=== PATIENT | female | born 1945 | race Caucasian/White ===

== ENCOUNTER 2022-08-24 14:39 | Outpatient (REF) | payer MEDICARE, SELFPAY | END 2022-08-24 14:40 | disposition home or self-care (01) | LOC: HO.LAB 14:39 | PROVIDERS: Visit Provider Family Medicine | DX: Z13.89 Encounter for screening for other disorder (principal) ==

== ENCOUNTER → 2022-08-31 13:30 | Outpatient (REF) | payer MEDICARE, SELFPAY ==
--- NOTE | 2022-08-31 13:34 | CA_ITS ---
Transthoracic Echocardiogram Patient (Last, First, Middle): Regine Dempsey, Gender: Female Date of : 1945 Age: 77 Procedure Date: 08/31/2022 Procedure Type: Transthoracic Echocardiogram Location: OP Height: 149.86 cm Weight: 48.54 kg BSA: 1.41 m2 Heart Rate: bpm BP: 140 / 82 mmHg Leather Crafter: SB Referring MD: Barry Young MD Symptoms: R01.1 - Cardiac murmur, unspecified Study Quality: Adequate ECG Rhythm: Sinus Conclusions: - The left ventricular systolic function is hyperdynamic. The visually estimated ejection fraction is >70%. - No obvious valvular pathology seen on this study. Findings Left Ventricle Normal left ventricular cavity size. There is normal left ventricular wall thickness. The left ventricular systolic function is hyperdynamic. The visually estimated ejection fraction is >70%. There is no evidence of regional wall motion abnormalities. E/E prime ratio is between 8 and 15 consistent with indeterminate filling pressures. Evidence suggests grade I (mild) diastolic dysfunction. Right Ventricle Normal right ventricular cavity size. There is low normal right ventricular systolic function. Atria Both atria are normal in size. Aortic Valve There is a normal trileaflet aortic valve. There is no aortic valve stenosis. There is no aortic valve regurgitation. Mitral Valve The mitral valve appears normal. There is no mitral valve regurgitation. There is no mitral valve stenosis. Pulmonic Valve The pulmonic valve is likely normal. Tricuspid Valve Normal tricuspid valve structure. There is trace tricuspid valve regurgitation. There is no evidence of pulmonary hypertension. Great Vessels The asc aorta is normal in size. Venous The inferior vena cava is normal in size and collapses greater than 50% with inspiration. Pericardium/Pleural There is no evidence of pericardial effusion. Prior Study Comparison No prior study available for comparison. Recommendations, Care & Conclusions No obvious valvular pathology seen on this study. Measurements 2D Linear Measurements IVSd: 0.99 0.6-0.9/0.6-1.0 cm LVIDd: 3.28 3.9-5.3/4.2-5.9 cm LVIDd Index: 2.33 2.4-3.2/2.2-3.1 cm/m2 LVIDs: 2.08 2.0-3.6 cm LVPWd: 0.94 0.7-1.1 cm Ao Root: 2.60 2.1-3.5 cm LA Diam: 3.10 2.7-3.8/3.0-4.0 cm LAIDs Index: 2.20 1.5-2.3 cm/m2 LV Mass: 110.21 67-162/88-224 g LV Mass Index: 78.16 43-95/49-115 g/m2 LVOT Diam: 1.70 3.0+(-)1.3 cm 2D Systolic Function EF 4C: 78.20 >55% EF 2C: 74.40 >55% EF BiP: 77.60 >55% Mitral Valve MV Pk E: 0.62 MV PK A: 1.09 MV Decel Time: 134.00 E/A: 0.60 E'Lateral: 6.09 E'Medial: 3.48 E/E' Med: 17.70 E/E' Lat: 10.10 PHT: 39.00 MVA PHT: 5.64 Decel [place]: 4.60 Aortic Valve AoV Pk Zachary: 1.42 AoV Pk Grad: 8.00 LVOT LVOT Pk Zachary: 1.23 LVOT Mn Zachary: 0.86 LVOT VTI: 0.24 LVOT Pk Grad: 6.00 LVOT Mn Grad: 3.00 LVOT Diam: 1.70 LVOT Area: 2.27 Diastolic Function MV Pk E: 0.62 MV Pk A: 1.09 E/A: 0.60 E'Medial: 3.48 E/E' Med: 17.70 E' Laterial: 6.09 E/E' Lat: 10.10 Right Ventricle TAPSE (mm): 17.00 TVS' Zachary: 9.00 Great Vessels Aorta Ao Root-2D: 2.60 2.0-3.7 cm Ao Asc: 2.70 2.1-3.4 cm Pulmonary Valve PV Pk Zachary: 1.46 Peak PV Grad: 9.00 Updated in Other Vendor System with Status of Final Dave Rolon MD electronically signed on 09/02/2022 12:52:43 PM with status of Final
== END ==
LOC: HO.CARD 13:30
PROVIDERS: Visit Provider Family Medicine
DX: R01.1 Cardiac murmur, unspecified (principal)
CPT/HCPCS: 93306

== ENCOUNTER 2022-09-28 11:06 | Outpatient (REF) | payer MEDICARE, SELFPAY ==
[2022-09-28 14:02] LABS: Appearance Urine Cloudy; Color Urine Yellow; Glucose Urine UA 500 mg/dL (Negative); Leukocyte Esterase Urine Small (1+) (Negative); Nitrite Urine Positive (Negative); Specific Gravity - Urine 1.015 (1.005-1.025); UMIC TRIGGER UA YES; Urine Blood Negative (Negative); Urine Ketones Negative (Negative); Urine Protein Negative (Neg-Trace)
[2022-09-28 14:10] LABS: Bacteria Urine 4+ (None Seen); Hyaline Casts Urine 0-2 /LPF (0-2); RBC Urine 0-2 /HPF (0-2); Squamous Epithelial Cell Urine 0-2 /HPF (0-2)
== END 2022-09-28 11:07 | disposition home or self-care (01) ==
LOC: HO.LAB 11:06
PROVIDERS: Visit Provider Family Medicine
DX: R35.0 Frequency of micturition (principal)
CPT/HCPCS: 81001; 81003; 87086; 87088; 87186

== ENCOUNTER 2022-09-28 11:15 | Outpatient (REF) | payer MEDICARE, SELFPAY ==
[2022-09-28 14:18] LABS: Estimated Average Glucose 163 mg/dL; Hemoglobin A1c % 7.3 %
[2022-09-28 15:01] LABS: Alanine Aminotransferase 13 U/L (0-31); Albumin Level 4.4 g/dL (3.5-5.0); Alkaline Phosphatase 103 U/L (39-117); Anion Gap 14 (12-20); Aspartate Amino Transferase 16 U/L (5-31); Bilirubin Total 0.5 mg/dL (0.0-1.0); Blood Urea Nitrogen 14 mg/dL (9-16); Calcium 9.7 mg/dL (8.4-10.2); Carbon Dioxide 27 mmol/L (22-29); Chloride 104 mmol/L (96-108); Estimated Glomerular Filt Rate > 60; Glucose Random 119 mg/dL (60-115); Potassium 3.9 mmol/L (3.3-5.1); Sodium 141 mmol/L (135-145); Total Protein 7.4 g/dL (6.5-8.0)
== END 2022-09-28 11:16 | disposition home or self-care (01) ==
LOC: HO.WFDLDS 11:15
PROVIDERS: Visit Provider Family Medicine
DX: E11.9 Type 2 diabetes mellitus without complications (principal)
CPT/HCPCS: 36415; 80053; 83036

== ENCOUNTER → 2022-10-10 10:44 | Outpatient (BNVA) | payer MEDICARE, SELFPAY | PROVIDERS: PCP Family Medicine; Visit Provider Surgery Vascular Surgery | DX: I73.9 Peripheral vascular disease, unspecified (principal) | CPT/HCPCS: 99212 ==

== ENCOUNTER → 2022-12-12 10:26 | Outpatient (BNVA) | payer MEDICARE, SELFPAY | PROVIDERS: PCP Family Medicine; Visit Provider Physician Assistant | DX: Z12.11 Encounter for screening for malignant neoplasm of colon (principal); Z98.890 Other specified postprocedural states | CPT/HCPCS: 99202 ==

== ENCOUNTER 2023-01-04 11:55 | Outpatient (REF) | payer MEDICARE, SELFPAY ==
[2023-01-04 14:39] LABS: Appearance Urine Clear; Color Urine Yellow; Glucose Urine UA Negative (Negative); Leukocyte Esterase Urine Trace (Negative); Nitrite Urine Negative (Negative); PH 6.5 (5.0-9.0); Specific Gravity - Urine <= 1.005 (1.005-1.025); UMIC TRIGGER UA YES; Urine Blood Negative (Negative); Urine Ketones Negative (Negative); Urine Protein Negative (Neg-Trace)
[2023-01-04 14:41] LABS: Bacteria Urine 4+ (None Seen); Hyaline Casts Urine 0-2 /LPF (0-2); RBC Urine 0-2 /HPF (0-2); Squamous Epithelial Cell Urine 0-2 /HPF (0-2); WBC Urine 0-5 /HPF (0-5)
== END 2023-01-04 11:56 | disposition home or self-care (01) ==
LOC: HO.WFDLDS 11:55
PROVIDERS: Visit Provider Family Medicine
DX: R30.0 Dysuria (principal)
CPT/HCPCS: 81001; 87086; 87088; 87186

== ENCOUNTER 2023-03-15 10:23 | Outpatient (AMB) | payer MEDICARE, SELFPAY ==
--- NOTE | 2023-03-15 10:36 | A.OFFPC_ITS ---
Vital Signs 03/15/23 10:42 Height 4 ft 5 in Weight 110 lb BMI 27.5 BP 120/70 Blood Pressure Location Lt brachial Position Sitting Pulse 100 Pulse Source Pulse Oximeter Pulse Oximetry (%) 98 Oxygen Delivery Method Room Air Intake Visit Reasons: Diabetes, hypertension Intake Note: Patient is here to follow up on diabetes, and hypertension. Allergies Seasonal Allergies Allergy (Mild, Verified 03/15/23 10:43) allergies broccoli Allergy (Mild, Uncoded 03/15/23 10:43) congestion cats Allergy (Mild, Uncoded 03/15/23 10:43) Swelling dogs Allergy (Mild, Uncoded 03/15/23 10:43) Swelling chemicals Adverse Reaction (Uncoded 03/15/23 10:43) Unknown Tobacco use date assessed: 03/15/23 Fall risk assessment: No Falls in past year Last assessed Fall Risk: 03/15/23 Dental Screening Dental Screen Date: 03/15/23 Did you have a dental visit in the last 12 months?: Yes Did you have a dental problem in the last 6 months where you did not have access to dental care?: No Was dental information given to patient?: Patient has dentist HPI Diabetes, hypertension HPI Details 77 y/o female presents to f/u diabetes/hypertension. Last A1c 09/28/22 7.3%. She is on metformin 500mg b.i.d. and glipizide 5mg daily. A1c today 03/15/23 is 7.8%. She denies any problems with her medication regimen though she notes she only takes metformin at night as it had been making her drowsy. Blood pressure today 120/70. She is on lisinopril 30mg daily. Pt has complaint of a dermatitis today. [facility] Surgical History History of appendectomy History of cataract surgery Family History Sister Kidney failure Social History Housing: Apartment Patient Tobacco Use Status: Never used Tobacco e-Cigarette/Vaping Use: Never Used service: No Current occupational status: retired Current occupational exposures/hazards: No Cognitive needs: No Hearing needs: No Vision needs: No Questionnaire Thrive Questionnaire Date Thrive assessed: 06/21/22 JULIETH-7 AMB Questionnaire JULIETH-7 Date JULIETH - 7 assessed: 06/21/22 Source: Developed by Drs. Kris Arellano, Ana Yusuf, Maciej Haddad and colleagues, with an educational annette from [employer]. Physical exam (Primary Care) Vital Signs: Last Vital Signs Pulse 100 03/15/23 10:42 BP 120/70 03/15/23 10:42 Pulse Ox 98 03/15/23 10:42 Oxygen Delivery Method Room Air 03/15/23 10:42 BMI result Body Mass Index 27.5 Tobacco/Smoking Status: Tobacco use Status Tobacco use date assessed 03/15/23 03/15/23 10:46 Patient Tobacco Use Status Never used Tobacco 03/15/23 10:37 e-Cigarette/Vaping Use Never Used 03/15/23 10:37 Thrive Assessment: Date of Thrive Assessment Date Thrive assessed 06/21/22 03/15/23 10:37 Assessment and Plan Assessment & Plan (1) Diabetes: Code(s): E11.9 - Type 2 diabetes mellitus without complications Plan: Poorly controlled diabetes. She says that metformin in the daytime causes drowsiness so she only takes this at night. She is taking glipizide ER 5 mg daily around 3pm because she says it causes low blood sugars in her mornings when she is doing lots of walking. Will trial to new via in the morning. Test blood sugars frequently to ensure she is not going low Eat regular meals Close follow-up in 1 month (2) Hypertension: Code(s): I10 - Essential (primary) hypertension Plan: Blood pressure is controlled. Goal is less than 140/90. Continue current medication regimen (3) Dermatitis: Code(s): L30.9 - Dermatitis, unspecified Plan: 1 cm patch of dermatitis under her chin She can trial hydrocortisone cream or ointment for this. She will let me know if not improving Orders: Orders AMB Hemoglobin A1c Today Z13.9 - Encounter for screening, unspecified Medications: New sitagliptin phosphate (Januvia) 25 mg PO DAILY 30 tabs 2RF 30 days blood sugar diagnostic (OneTouch Verio test strips) 2 times a day As directed, 90 days 200 ea 4RF DX: E11.9, test blood sugar twice a day, 90 day E11.69 - Type 2 diabetes mellitus with other specified complication, E66.9 - Obesity, unspecified lancets ([employer] Safety Lancet) 2 times a day As directed, 90 days 200 ea 3RF E11.9 - Type 2 diabetes mellitus without complications Changed From glipizide ER 5 mg PO DAILY 30 days 30 tabs 1RF To glipizide ER 5 mg PO DAILY 90 tabs 2RF 90 days Coding Level of Care Code Est Pt Level 4 (93957) Diagnoses Diabetes E11.9 Hypertension I10 Dermatitis L30.9
[2023-03-15 10:42] VITALS: BP 120/70; PULSE 100; O2SAT 98; BMI 27.5
== END 2023-03-15 11:22 | disposition home or self-care (01) ==
PROVIDERS: Visit Provider Family Medicine
DX: E11.620 Type 2 diabetes mellitus with diabetic dermatitis (principal); I10 Essential (primary) hypertension; L30.9 Dermatitis, unspecified
CPT/HCPCS: 83036; 99214

== ENCOUNTER 2023-03-27 09:55 | Outpatient (REF) | payer MEDICARE, SELFPAY ==
--- NOTE | ~2023-03-27 | MM_ITS ---
EXAMINATION: MM SCREENING DIGITAL BREAST TOMOSYNTHESIS, BILATERAL CLINICAL INFORMATION: Screening. Asymptomatic. COMPARISON: Mammography: This study is compared with prior exams dating back to 2020. TECHNIQUE: Digital breast tomosynthesis is performed in both the craniocaudal and mediolateral oblique views along with computer-aided detection (CAD). Synthesized 2D images are generated from the tomosynthesis. FINDINGS: The breasts are heterogeneously dense, which may obscure small masses (ACR BI-RADS breast composition Category c). There are no significant masses, abnormal calcifications, or other abnormalities. MM/MM tomosynthesis screening BI IMPRESSION: No mammographic evidence of malignancy. ASSESSMENT: BI-RADS BI-RADS 1 - Negative RECOMMENDATION: Routine annual mammography screening. 1 year F/U This examination should not preclude the clinical evaluation of a suspicious palpable abnormality. This patient's information was entered into a reminder system with a target due date for their next mammogram.
== END 2023-03-27 09:56 | disposition home or self-care (01) ==
LOC: HO.MAMMO 09:55
PROVIDERS: PCP Family Medicine; Visit Provider Family Medicine
DX: Z12.31 Encounter for screening mammogram for malignant neoplasm of breast (principal)
CPT/HCPCS: 77063; 77067

== ENCOUNTER → 2023-03-27 10:15 | Outpatient (BNV) | payer MEDICARE, SELFPAY | PROVIDERS: PCP Family Medicine; Visit Provider Radiology Diagnostic Radiology | DX: Z12.31 Encounter for screening mammogram for malignant neoplasm of breast (principal) | CPT/HCPCS: 77063; 77067 ==

== ENCOUNTER 2023-04-21 10:30 | Outpatient (AMB) | payer MEDICARE, SELFPAY ==
--- NOTE | 2023-04-21 11:01 | A.OFFPC_ITS ---
Vital Signs 04/21/23 11:03 Height 4 ft 11 in Weight 109 lb BMI 22.0 BP 132/82 Blood Pressure Location Lt brachial Position Sitting Pulse 96 Pulse Source Pulse Oximeter Pulse Oximetry (%) 100 Oxygen Delivery Method Room Air Intake Visit Reasons: f/u diabetes Intake Note: Patient is here for follow up on her diabetes. Allergies Seasonal Allergies Allergy (Mild, Verified 04/21/23 11:05) allergies broccoli Allergy (Mild, Uncoded 04/21/23 11:05) congestion cats Allergy (Mild, Uncoded 04/21/23 11:05) Swelling dogs Allergy (Mild, Uncoded 04/21/23 11:05) Swelling chemicals Adverse Reaction (Uncoded 04/21/23 11:05) Unknown Tobacco use date assessed: 03/15/23 Fall risk assessment: No Falls in past year Last assessed Fall Risk: 04/21/23 Dental Screening Dental Screen Date: 04/21/23 Did you have a dental visit in the last 12 months?: Yes Did you have a dental problem in the last 6 months where you did not have access to dental care?: No Was dental information given to patient?: Patient has dentist HPI f/u diabetes HPI Details 77 y/o female presents to f/u diabetes. She has had issues with timing of her meds. Had added Januvia for her mornings but it seems to have been discontinued. She reports this has been too expensive for her. Last A1c 03/15/23 listed?in?chart?as?5.8% She is only on metformin 500mg b.i.d. and glipizide 5mg daily. She had brought her blood sugar logs. She has complaints of sinus pressure/headaches today. Blood sugars at home have been in the low 100s. ?On?metformin?and?glipizide. [facility] Surgical History History of appendectomy History of cataract surgery Family History Sister Kidney failure Social History Housing: Apartment Patient Tobacco Use Status: Never used Tobacco e-Cigarette/Vaping Use: Never Used service: No Current occupational status: retired Current occupational exposures/hazards: No Cognitive needs: No Hearing needs: No Vision needs: No Questionnaire Thrive Questionnaire Date Thrive assessed: 06/21/22 JULIETH-7 AMB Questionnaire JULIETH-7 Date JULIETH - 7 assessed: 06/21/22 Source: Developed by Drs. Kris Arellano, Ana Yusuf, Maciej Haddad and colleagues, with an educational annette from [employer]. Review of Systems Const Reports headache(s) ENT Reports headache(s) and Reports sinus pressure Neuro Reports headache(s) Physical exam (Primary Care) Vital Signs: Last Vital Signs Pulse 96 04/21/23 11:03 BP 132/82 04/21/23 11:03 Pulse Ox 100 04/21/23 11:03 Oxygen Delivery Method Room Air 04/21/23 11:03 BMI result Body Mass Index 22.0 Tobacco/Smoking Status: Tobacco use Status Tobacco use date assessed 03/15/23 04/21/23 11:03 Patient Tobacco Use Status Never used Tobacco 04/21/23 11:03 e-Cigarette/Vaping Use Never Used 04/21/23 11:03 Thrive Assessment: Date of Thrive Assessment Date Thrive assessed 06/21/22 04/21/23 11:03 Assessment and Plan Assessment & Plan (1) Diabetes: Code(s): E11.9 - Type 2 diabetes mellitus without complications Plan: Her?blood?sugars?appear?controlled?on?review?of?her?log?today. Continue?current?medication?regimen?of?me tformin?500?mg?twice?a?day?and?glipizide?ER?5?mg?daily Continue?diabetic?diet (2) Sinus pressure: Code(s): J34.89 - Other specified disorders of nose and nasal sinuses Plan: No?evidence?of?bacterial?infection. Encouraged?nasal?saline She?will?let?me?know?if?not?improving Coding Level of Care Code Est Pt Level 3 (58544) Diagnoses Diabetes E11.9 Sinus pressure J34.89
[2023-04-21 11:03] VITALS: BP 132/82; PULSE 96; O2SAT 100; BMI 22.0
== END 2023-04-21 11:34 | disposition home or self-care (01) ==
PROVIDERS: PCP Family Medicine; Visit Provider Family Medicine
DX: E11.9 Type 2 diabetes mellitus without complications (principal); J34.89 Other specified disorders of nose and nasal sinuses
CPT/HCPCS: 99213

== ENCOUNTER 2023-07-27 09:20 | Outpatient (REF) | payer MEDICARE, SELFPAY ==
[2023-07-27 12:40] LABS: Appearance Urine Clear; Color Urine Yellow; Glucose Urine UA Negative (Negative); Leukocyte Esterase Urine Moderate (2+) (Negative); Nitrite Urine Positive (Negative); PH 6.5 (5.0-9.0); Specific Gravity - Urine <= 1.005 (1.005-1.025); UMIC TRIGGER UA YES; Urine Blood Negative (Negative); Urine Ketones Negative (Negative); Urine Protein Negative (Neg-Trace)
[2023-07-27 12:45] LABS: Bacteria Urine 4+ (None Seen); Hyaline Casts Urine 0-2 /LPF (0-2); RBC Urine 0-2 /HPF (0-2); Squamous Epithelial Cell Urine 0-2 /HPF (0-2); WBC Urine >50 /HPF (0-5)
[2023-07-27 12:55] LABS: Alanine Aminotransferase 13 U/L (0-31); Albumin Level 4.3 g/dL (3.5-5.0); Alkaline Phosphatase 93 U/L (39-117); Anion Gap 14 (12-20); Aspartate Amino Transferase 14 U/L (5-31); Bilirubin Total 0.5 mg/dL (0.0-1.0); Blood Urea Nitrogen 12 mg/dL (9-16); Calcium 9.6 mg/dL (8.4-10.2); Carbon Dioxide 26 mmol/L (22-29); Chloride 104 mmol/L (96-108); Estimated Glomerular Filt Rate > 60; Glucose Fasting 120 mg/dL (60-99); Potassium 3.6 mmol/L (3.3-5.1); Sodium 140 mmol/L (135-145); Total Protein 7.6 g/dL (6.5-8.0)
[2023-07-27 13:00] LABS: Creatinine Urine 27.44 mg/dL; Microalbum/Creatinine Ratio Ur 18.2 ug/mg cr (<30)
== END 2023-07-27 09:21 | disposition home or self-care (01) ==
LOC: HO.WFDLDS 09:20
PROVIDERS: Visit Provider Family Medicine
DX: Z00.00 Encounter for general adult medical examination without abnormal findings (principal); E11.9 Type 2 diabetes mellitus without complications; I10 Essential (primary) hypertension
CPT/HCPCS: 36415; 80053; 81001; 81003; 82043; 82570

== ENCOUNTER 2023-08-03 10:37 | Outpatient (AMB) | payer MEDICARE, SELFPAY ==
--- NOTE | 2023-08-03 08:25 | MHC.PC.OV ---
Vital Signs 08/03/23 10:46 Height 4 ft 11 in Weight 107 lb BMI 21.6 BP 145/80 H Blood Pressure Location Lt brachial Position Sitting Pulse 84 Pulse Source Pulse Oximeter Pulse Oximetry (%) 98 Oxygen Delivery Method Room Air Intake Visit Reasons: f/u diabetes Intake Note: Patient is here to follow up on diabetes and labs, and she would like her cholesterol test done. Patient states she can't take the Macrobid it gives her headaches, and stomach aches. Allergies Seasonal Allergies Allergy (Mild, Verified 08/03/23 10:50) allergies nitrofurantoin [From Macrobid] Adverse Reaction (Mild, Verified 08/03/23 10:51) headache, stomach ache. broccoli Allergy (Mild, Uncoded 08/03/23 10:50) congestion cats Allergy (Mild, Uncoded 08/03/23 10:50) Swelling dogs Allergy (Mild, Uncoded 08/03/23 10:50) Swelling chemicals Adverse Reaction (Uncoded 08/03/23 10:50) Unknown Tobacco use date assessed: 08/03/23 Fall risk assessment: No Falls in past year Last assessed Fall Risk: 08/03/23 Dental Screening Dental Screen Date: 08/03/23 Did you have a dental visit in the last 12 months?: Yes Did you have a dental problem in the last 6 months where you did not have access to dental care?: No Was dental information given to patient?: Patient has dentist HPI f/u diabetes HPI Details Patient?presents?to?follow-up?diabetes A1c?is?6.8%?today. Taking?her?diabetes?medications?as?prescribed?and?no?problems?with?these Recent?UTI?and?did?not?tolerate?Macrobid.??Still?uncomfortable. Blood?pressure?is?a?little?elevated?but?her?log?shows?good?control?and?she?says?she?is?uncomfortable?today. [facility] Surgical History History of appendectomy History of cataract surgery Family History Sister Kidney failure Social History Housing: Apartment Patient Tobacco Use Status: Never used Tobacco e-Cigarette/Vaping Use: Never Used service: No Current occupational status: retired Current occupational exposures/hazards: No Cognitive needs: No Hearing needs: No Vision needs: No Questionnaire PHQ-9 Over the last 2 weeks, how often have you been bothered by any of the following problems? 1. Little interest or pleasure in doing things: not at all 2. Feeling down, depressed, or hopeless: not at all 3. Trouble falling or staying asleep, or sleeping too much: not at all 4. Feeling tired or having little energy: not at all 5. Poor appetite or overeating: not at all 6. Feeling bad about yourself - or that you are a failure or have let yourself or your family down: not at all 7. Trouble concentrating on things, such as reading the newspaper or watching television: not at all 8. Moving or speaking so slowly that other people could have noticed. Or the opposite - being so fidgety or restless that you have been moving around a lot more than usual: not at all 9. Thoughts that you would be better off or of hurting yourself in some way: not at all Total score: 0 Source: Developed by Drs. Kris Arellano, Ana Yusuf, Maciej Haddad and colleagues, with an educational annette from [employer]. Thrive Questionnaire Date Thrive assessed: 08/03/23 I am a: Patient What is your living situation today?: I have a steady place to live Within the past 12 months, did the food you bought not last and you didn't have the money to get more?: Never true Within the past 12 months, did you worry whether your food would run out before you got money to buy more?: Never true Do you have trouble paying for medicines?: No Do you have trouble getting transportation to medical appointments?: No Do you have trouble paying your heating and electricity bill?: No Do you have trouble taking care of your child, family member or friend?: No Do you have trouble with day-to-day activities such as bathing, preparing meals, shopping, managing finances, etc.?: No Are you currently unemployed and looking for a job?: No Are you interested in more education?: No THRIVE Score: 0 AUDIT C Alcohol Use Questionnaire (AUDIT-C) 1. How often do you have a drink containing alcohol?: Never 3. How often do you have six or more drinks on one occasion?: Never Total Score: 0 JULIETH-7 AMB Questionnaire JULIETH-7 Date JULIETH - 7 assessed: 08/03/23 Feeling nervous, anxious, or on edge: 0 = Not at all Not being able to stop or control worryin = Not at all Worrying too much about different things: 0 = Not at all Trouble relaxin = Not at all Being so restless that it is hard to sit still: 0 = Not at all Becoming easily annoyed or irritable: 0 = Not at all Feeling afraid as if something awful might happen: 0 = Not at all Total JULIETH-7 score (0-4 normal; 5-9 mild; 10-14 moderate; 15-21 severe): 0 Source: Developed by Drs. Kris Arellano, Ana Yusuf, Maciej Haddad and colleagues, with an educational annette from [employer]. Review of Systems Const Denies chills, Denies fatigue, Denies fever(s), Denies headache(s) and Denies weakness ENT Denies dizziness and Denies headache(s) Card Denies chest pain, Denies lightheadedness, Denies dyspnea and Denies other (Palpitations) Resp Denies cough, Denies dyspnea, Denies wheezing and Denies other ( shortness of breath) Musc Denies numbness and Denies tingling Neuro Denies dizziness, Denies headache(s), Denies numbness, Denies tingling, Denies paresthesias and Denies weakness Psych Denies anxiety and Denies depression Endo Denies fatigue Aller/Immun Denies wheezing Physical exam (Primary Care) Vital Signs: Last Vital Signs Pulse 84 08/03/23 10:46 BP 145/80 H 08/03/23 10:46 Pulse Ox 98 08/03/23 10:46 Oxygen Delivery Method Room Air 08/03/23 10:46 BMI result Body Mass Index 21.6 Tobacco/Smoking Status: Tobacco use Status Tobacco use date assessed 08/03/23 08/03/23 11:00 Patient Tobacco Use Status Never used Tobacco 08/03/23 08:25 e-Cigarette/Vaping Use Never Used 08/03/23 08:25 PHQ-9: PHQ-9 Score PHQ-9: Total score 0 08/03/23 11:00 Thrive Assessment: Date of Thrive Assessment Date Thrive assessed 08/03/23 08/03/23 11:00 Const General: no acute distress and well developed Nutritional Appearance: well nourished Orientation/consciousness: patient oriented x3 HENMT Head: Yes normocephalic and Yes atraumatic Eyes General: appearance normal, both eyes and all related structures Pupils: Equal, round and reactive pupils present EOM: EOMs intact bilaterally Resp Effort & Inspection: normal respiratory effort Auscultation: clear to auscultation bilaterally Cardio Rate: regular rate Rhythm: regular rhythm Heart sounds: S1 normal heart sound present, S2 normal heart sound present, no gallops, no murmurs and no rubs Neuro General: patient oriented x3 and gait normal Cranial nerves: Yes Equal, round and reactive pupils present Psych Affect: normal affect Results AMB Hemoglobin A1c AMB Hemoglobin A1c 6.8 % Last Edit by Lori Yo CMA on 08/03/23 11:13 Results Reviewed Results Reviewed: Laboratory Last Values Hgb A1c (Clinic) 6.8 % (4.0-6.0) H 08/03/23 11:06 Assessment and Plan Assessment & Plan (1) Dysuria: Code(s): R30.0 - Dysuria Plan: Did?not?tolerate?Macrobid.??Switching?to?amoxicillin Hydrate?well She?will?let?me?know?if?not?improving (2) Hypertension: Code(s): I10 - Essential (primary) hypertension Plan: Blood?pressure?is?a?little?elevated?today?but?is?usually?well?controlled.??Goal?is?less?than?140/90 Patient?is?feeling?uncomfortable?today?to?2?dysuria. Her?log?of?blood?pressures?shows?good?control. Continue?current?medication?regimen (3) Diabetes: Code(s): E11.9 - Type 2 diabetes mellitus without complications Plan: A1c?6.8%.??Good?control.??Goal?is?less?than?7.0% Continue?current?medication?regimen Continue?diabetic?diet,?exercise?and?weight?control (4) Cervicalgia: Code(s): M54.2 - Cervicalgia Plan: Mild?neck?tension?and?strain?of?right?trapezius?and?scalene?muscles. Demonstrated?exercises?for?her?to?try Also?use?heat Use?a?pillow?which?is?comfortable Adjust?height?of?computer?monitor If?not?improving?will?refer?to?physical?therapy Orders: Orders AMB Hemoglobin A1c Today Z13.9 - Encounter for screening, unspecified Coding Level of Care Code Est Pt Level 4 (66871) Diagnoses Dysuria R30.0 Hypertension I10 Diabetes E11.9 Cervicalgia M54.2
[2023-08-03 10:46] VITALS: BP 145/80; PULSE 84; O2SAT 98; BMI 21.6
== END 2023-08-03 11:38 | disposition home or self-care (01) ==
PROVIDERS: PCP Family Medicine; Visit Provider Family Medicine
DX: R30.0 Dysuria (principal); E11.9 Type 2 diabetes mellitus without complications; I10 Essential (primary) hypertension; M54.2 Cervicalgia
CPT/HCPCS: 83036; 99214

== ENCOUNTER 2023-11-15 11:52 | Outpatient (AMB) | payer MEDICARE, SELFPAY ==
--- NOTE | 2023-11-15 12:01 | MHC.PC.OV ---
Vital Signs 11/15/23 12:02 Height 4 ft 11 in Weight 107 lb 6 oz BMI 21.7 BP 134/72 Blood Pressure Location Lt brachial Position Sitting Pulse 91 Pulse Source Pulse Oximeter Pulse Oximetry (%) 98 Oxygen Delivery Method Room Air Intake Visit Reasons: CPE?with?follow-up?labs?and?health?maintenance Intake Note: Patient is here for physical and following up on labs. Allergies Seasonal Allergies Allergy (Mild, Verified 11/15/23 12:03) allergies nitrofurantoin [From Macrobid] Adverse Reaction (Mild, Verified 11/15/23 12:03) headache, stomach ache. broccoli Allergy (Mild, Uncoded 11/15/23 12:03) congestion cats Allergy (Mild, Uncoded 11/15/23 12:03) Swelling dogs Allergy (Mild, Uncoded 11/15/23 12:03) Swelling chemicals Adverse Reaction (Uncoded 11/15/23 12:03) Unknown Medication List - Last Reconciled 11/15/23 by Barry Young MD atorvastatin 40 mg PO DAILY 90 days blood sugar diagnostic ([employer] Verio test strips) 2 times a day As directed, 90 days glipizide ER 5 mg PO DAILY 90 days ipratropium bromide 2 sprays intranasal TID 30 days lancets ([employer]withus Delica Safety Lancet) 2 times a day As directed, 90 days lisinopril 30 mg PO DAILY 90 days metformin ER 500 mg PO BID 90 days olopatadine 0.1% 1 drp ophthalmic (eye) BID 30 days Tobacco use date assessed: 11/15/23 Fall risk assessment: No Falls in past year Last assessed Fall Risk: 11/15/23 Dental Screening Dental Screen Date: 08/03/23 HPI CPE?with?follow-up?labs?and?health?maintenance HPI Details 78 y/o female presents for an extended exam with f/u labs and health maintenance. Last A1c 08/03/23 6.8%. She is on glipizide 5mg, metformin 500mg. A1c today 11/15/23 7.3%. Blood pressure today 134/72. She is on lisinopril 30mg daily. Pt reports mammogram last year and already has an appt. scheduled. Bone density test 2021 showed some osteoporosis. Heart murmur with mild diastolic dysfunction and pt requests referral. HPI Comments History of Present Illness Details Documentation assistance for Barry Young MD, was provided by Trae Caputo,? Hack Saw Operator on 11/15/2023 12:15 PM ROGELIO. Zoila, Dr. Young, have read, observed, and verified documentation. [facility] Surgical History History of appendectomy History of cataract surgery Family History Sister Kidney failure Social History Housing: Apartment Patient Tobacco Use Status: Never used Tobacco e-Cigarette/Vaping Use: Never Used service: No Current occupational status: retired Current occupational exposures/hazards: No Cognitive needs: No Hearing needs: No Vision needs: No Questionnaire Thrive Questionnaire Date Thrive assessed: 08/03/23 JULIETH-7 AMB Questionnaire JULIETH-7 Date JULIETH - 7 assessed: 08/03/23 Source: Developed by Drs. Kris Arellano, Ana Yusuf, Maciej Haddad and colleagues, with an educational annette from [employer]. Review of Systems Const Denies chills, Denies fatigue, Denies fever(s), Denies headache(s) and Denies weakness Eyes Denies change in vision ENT Denies dizziness, Denies headache(s), Denies hearing loss, Denies nasal congestion, Denies sinus pain, Denies sinus pressure and Denies sore throat Card Denies chest pain, Denies lightheadedness, Denies dyspnea and Denies other (palpitations) Resp Denies cough, Denies dyspnea and Denies wheezing GI Denies abdominal pain, Denies melena, Denies hematochezia, Denies change in bowel habits, Denies dyspepsia and Denies nausea Denies hematuria and Denies dysuria Musc Denies abnormal gait, Denies myalgias, Denies arthralgias, Denies numbness and Denies tingling Skin/Breast Denies rash, Denies unusual bruising and Denies wounds Neuro Denies abnormal gait, Denies dizziness, Denies headache(s), Denies memory loss, Denies numbness, Denies Sensory deficit (Neuro), Denies tingling and Denies weakness Psych Denies anxiety, Denies depression and Denies memory loss Endo Denies cold intolerance, Denies fatigue, Denies heat intolerance, Denies polydipsia and Denies polyuria Kenny/Lymph Denies easy bleeding and Denies easy bruising Aller/Immun Denies wheezing Physical exam (Primary Care) Vital Signs: Last Vital Signs Pulse 91 11/15/23 12:02 BP 134/72 11/15/23 12:02 Pulse Ox 98 11/15/23 12:02 Oxygen Delivery Method Room Air 11/15/23 12:02 BMI result Body Mass Index 21.7 Tobacco/Smoking Status: Tobacco use Status Tobacco use date assessed 11/15/23 11/15/23 12:04 Patient Tobacco Use Status Never used Tobacco 11/15/23 12:03 e-Cigarette/Vaping Use Never Used 11/15/23 12:03 Thrive Assessment: Date of Thrive Assessment Date Thrive assessed 08/03/23 11/15/23 12:03 Const General: no acute distress, well developed, alert and awake Nutritional Appearance: well nourished Orientation/consciousness: patient oriented x3 HENMT Head: Yes normocephalic and Yes atraumatic Ears: hearing grossly normal bilaterally and TM's normal bilaterally General nose exam: Normal external nose present and Normal nares present Mouth: Normal oral and palatal mucosa present and moist mucous membranes Teeth and gingiva: dentition normal Throat: Yes posterior oropharynx normal Eyes General: appearance normal, both eyes and all related structures Pupils: Equal, round and reactive pupils present and Pupil accommodation reflex normal EOM: EOMs intact bilaterally Neck Neck: Yes normal visual inspection, Yes no lymphadenopathy and Yes trachea midline Thyroid: Thyroid normal Carotids: no bruits Lymphatic: no lymphadenopathy noted Chest Chest palpation & inspection: normal inspection of the chest Resp Effort & Inspection: normal respiratory effort Auscultation: clear to auscultation bilaterally Cardio Rate: regular rate Rhythm: regular rhythm Heart sounds: S1 normal heart sound present, S2 normal heart sound present, no gallops, Murmur heart sound present and no rubs Bruits: no abdominal aortic bruits and no carotid bruits GI Palpation (GI): No Abdominal aortic bruit present, Soft to palpation, nontender, No hepatosplenomegaly present and No Rebound tenderness present Auscultation: normal bowel sounds General: Yes no CVA tenderness Back/Spine/Pelvis Back: no CVA tenderness Cervical Spine: cervical ROM normal and No Cervical spine tenderness Thoracic/Lumbar Spine: thoraco-lumbar ROM normal, No pain with thoraco-lumbar ROM, No thoracic spinal tenderness and No lumbar spinal tenderness Skin Lesions: no lesions Rashes: no rashes Trauma: no lacerations or abrasions Wounds: no wounds Nails: normal Neuro General: patient oriented x3 Cranial nerves: Yes Equal, round and reactive pupils present Cognition (Neuro): normal cognition Gait exam (Neuro): Normal gait present Motor exam (neuro): 5/5 motor strength present throughout Sensory Exam: No Sensory deficit (Neuro) Deep tendon reflexes (DTR's): Right patellar reflex intensity grade: 2+ and Left patellar reflex intensity grade: 2+ Extrem General: Yes normal to inspection and No edema Psych Appearance: grossly normal Affect: normal affect Attitude: cooperative Thought process: Normal thought process present Results AMB Hemoglobin A1c AMB Hemoglobin A1c 7.3 % Last Edit by Lori Yo CMA on 11/15/23 12:21 Results Reviewed Results Reviewed: Laboratory Last Values Hgb A1c (Clinic) 7.3 % (4.0-6.0) H 11/15/23 12:20 Assessment and Plan Assessment & Plan (1) Diabetes: Code(s): E11.9 - Type 2 diabetes mellitus without complications Plan: A1c?climbed?from?6.8%?to?7.3%.??Goal?is?less?than?7.0% She?will?work?on?lifestyle?changes?including?diet?lower?in?sugars?and?starches?and?exercise?and?weight?loss. Will?follow-up?in?3?months.??We?discussed?that?if?she?is?still?having?difficulty?controlling?her?blood?sugars?we?should?adjust?her?medications?and?she?agrees No?medication?changes?were?made?today. (2) Hypertension: Code(s): I10 - Essential (primary) hypertension Plan: Blood?pressure?is?fairly?well?controlled. Goal?is?less?than?140/90 Continue?current?medication (3) Hyperlipidemia: Code(s): E78.5 - Hyperlipidemia, unspecified Plan: She?is?taking?atorvastatin.??Has?not?had?her?labs?drawn?yet?but?will?get?those?done?and?we?can?follow-up (4) Headache: Code(s): R51.9 - Headache, unspecified Plan: Posterior?neck?discomfort?with?posterior?headaches. Start?physical?therapy (5) Cervicalgia: Code(s): M54.2 - Cervicalgia Plan: As?above, (6) Osteoporosis: Code(s): M81.0 - Age-related osteoporosis without current pathological fracture Plan: Due?for?repeat?bone?density?test. She?has?osteoporosis?by?prior?bone?density?test?but?had?declined?alendronate?and?wants?to?see?if?she?is?able?to?improve?her?bone?density?without?bisphosphonates?or?other?medications. Will?review?together?at?a?subsequent?visit?when?results?are?available. (7) Screening for colon cancer: Comment: Normal colonoscopy less than 5 years ago per patient report No family history of GI cancers No personal history of colon polyps Code(s): Z12.11 - Encounter for screening for malignant neoplasm of colon Plan: Patient?would?like?Cologuard?test-ordered (8) Breast cancer screening by mammogram: Code(s): Z12.31 - Encounter for screening mammogram for malignant neoplasm of breast Plan: Last?mammogram?in?fall?2022?and?scheduled?for?her?next,?this?fall. (9) Cardiac murmur: Code(s): R01.1 - Cardiac murmur, unspecified Plan: Known?cardiac?murmur.??Echocardiogram?was?fairly?unremarkable?and?this?is?likely?a?benign?murmur. Echo?did?show?incidental?diastolic?dysfunction-see?below (10) Mild diastolic dysfunction: Code(s): I51.9 - Heart disease, unspecified Plan: Patient?has?very?mild?diastolic?dysfunction. Should?control?blood?pressure,?cholesterol?and?blood?sugars. Patient?is?nevertheless?concerned?about?results?and?would?like?a?consult?with?Cardiology -referred (11) Adult general medical exam: Code(s): Z00.00 - Encounter for general adult medical examination without abnormal findings Plan: 78-year-old?female?presents?for?complete?physical?exam Encouraged?healthy?diet?with?active?lifestyle?and?exercise Orders: Orders AMB Hemoglobin A1c Today Z13.9 - Encounter for screening, unspecified PT Evaluation and Treatment Today M54.2 - Cervicalgia, R51.9 - Headache, unspecified MM tomosynthesis screening BI Today Z12.31 - Encounter for screening mammogram for malignant neoplasm of breast XR DEXA axial skeleton Today M81.0 - Age-related osteoporosis without current pathological fracture Referrals Cologuard Test Z12.11 - Encounter for screening for malignant neoplasm of colon Cardiology Referral I51.9 - Heart disease, unspecified Coding Level of Care Code Est Pt Level 4 (82813) Diagnoses Diabetes E11.9 Hypertension I10 Hyperlipidemia E78.5 Headache R51.9 Cervicalgia M54.2 Osteoporosis M81.0 Screening for colon cancer Z12.11 Breast cancer screening by mammogram Z12.31 Cardiac murmur R01.1 Mild diastolic dysfunction I51.9 Adult general medical exam Z00.00
[2023-11-15 12:02] VITALS: BP 134/72; PULSE 91; O2SAT 98; BMI 21.7
== END 2023-11-15 12:51 | disposition home or self-care (01) ==
PROVIDERS: PCP Family Medicine; Visit Provider Family Medicine
DX: E11.69 Type 2 diabetes mellitus with other specified complication (principal); I10 Essential (primary) hypertension; E78.5 Hyperlipidemia, unspecified; R51.9 Headache, unspecified; M54.2 Cervicalgia; M81.0 Age-related osteoporosis without current pathological fracture; Z12.11 Encounter for screening for malignant neoplasm of colon; Z12.31 Encounter for screening mammogram for malignant neoplasm of breast; R01.1 Cardiac murmur, unspecified; I51.9 Heart disease, unspecified
CPT/HCPCS: 83036; 99214

== ENCOUNTER 2023-11-20 07:55 | Outpatient (REF) | payer MEDICARE, SELFPAY ==
[2023-11-20 11:16] LABS: MANUAL DIFF FLAG NO
[2023-11-20 11:28] LABS: Appearance Urine Cloudy; Color Urine Yellow; Glucose Urine UA Negative (Negative); Leukocyte Esterase Urine Moderate (2+) (Negative); Nitrite Urine Positive (Negative); PH 6.5 (5.0-9.0); UMIC TRIGGER UA YES; Urine Blood Negative (Negative); Urine Ketones Negative (Negative); Urine Protein Negative (Neg-Trace)
[2023-11-20 11:31] LABS: Bacteria Urine 4+ (None Seen); Hyaline Casts Urine 0-2 /LPF (0-2); RBC Urine 0-2 /HPF (0-2); WBC Urine >50 /HPF (0-5)
[2023-11-20 11:42] LABS: Basophils Percent Auto 0.5 % (0-2); Eosinophils Absolute Auto 0.2 X10*3/uL (0.0-0.4); Eosinophils Percent Auto 3.4 % (0-4); Hematocrit 42.2 % (37.0-47.0); Hemoglobin 14.2 g/dl (12.0-16.0); Imm Gran Abs Auto 0.02 X10*3/uL (0.00-0.03); Imm Gran Pct Auto 0.3 % (0.0-0.4); Lymphocytes Absolute Auto 2.1 X10*3/uL (1.2-4.9); Mean Corpuscular HGB Conc 33.6 g/dl (31.0-35.0); Mean Corpuscular Hemoglobin 28.9 pg (27.0-33.0); Mean Corpuscular Volume 85.8 fL (80.0-98.0); Mean Platelet Volume 11.5 fL (9.4-12.3); Monocytes Absolute Auto 0.4 X10*3/uL (0.1-1.2); Monocytes Percent Auto 6.9 % (2-11); Neutrophils Absolute Auto 3.6 x10*3/uL (2.0-8.3); Neutrophils Percent Auto 56.9 % (45-73); Platelet Count 268 X10*3/uL (160-400); Red Blood Count 4.92 X10*6/uL (4.20-5.50); Red Cell Distribution Width 13.6 % (11.0-16.0); White Blood Count 6.4 X10*3/uL (4.8-10.8)
[2023-11-20 12:17] LABS: Alanine Aminotransferase 12 U/L (0-31); Albumin Level 4.2 g/dL (3.5-5.0); Alkaline Phosphatase 89 U/L (39-117); Anion Gap 16 (12-20); Aspartate Amino Transferase 15 U/L (5-31); Bilirubin Total 0.4 mg/dL (0.0-1.0); Blood Urea Nitrogen 15 mg/dL (9-16); Calcium 9.6 mg/dL (8.4-10.2); Carbon Dioxide 25 mmol/L (22-29); Chloride 106 mmol/L (96-108); Cholesterol 162 mg/dL (<200); Estimated Glomerular Filt Rate > 60; Glucose Fasting 102 mg/dL (60-99); HDL Cholesterol 44 mg/dL (>40); LDL Cholesterol Calculated 81 mg/dL (<100); Potassium 3.6 mmol/L (3.3-5.1); Sodium 143 mmol/L (135-145); TSH reflex Free T4 1.47 uIU/mL (0.32-4.0); Total Protein 7.7 g/dL (6.5-8.0); Triglycerides 187 mg/dL (<150); Vitamin D 25-OH Total 38.6 ng/mL (>30)
[2023-11-20 12:20] LABS: Creatinine Urine 39.74 mg/dL
== END 2023-11-20 07:56 | disposition home or self-care (01) ==
LOC: HO.WFDLDS 07:55
PROVIDERS: Visit Provider Family Medicine
DX: Z00.00 Encounter for general adult medical examination without abnormal findings (principal); I10 Essential (primary) hypertension; E55.9 Vitamin D deficiency, unspecified
CPT/HCPCS: 36415; 80053; 80061; 81001; 82043; 82306; 82570; 84443; 85025

== ENCOUNTER → 2023-12-28 16:31 | Outpatient (AMB) | payer MEDICARE, SELFPAY ==
--- NOTE | 2023-12-28 16:22 | MHC.PC.OV ---
Vital Signs 12/28/23 16:23 BP 122/72 Intake Visit Reasons: f/u CPE-labs via telemedicine Intake Note: Patient is scheduled to follow up on labs today, and is concerned that nobody got back to her regarding PT order. Allergies Seasonal Allergies Allergy (Mild, Verified 11/15/23 12:03) allergies nitrofurantoin [From Macrobid] Adverse Reaction (Mild, Verified 11/15/23 12:03) headache, stomach ache. broccoli Allergy (Mild, Uncoded 11/15/23 12:03) congestion cats Allergy (Mild, Uncoded 11/15/23 12:03) Swelling dogs Allergy (Mild, Uncoded 11/15/23 12:03) Swelling chemicals Adverse Reaction (Uncoded 11/15/23 12:03) Unknown Tobacco use date assessed: 11/15/23 Fall risk assessment: No Falls in past year Last assessed Fall Risk: 12/28/23 Dental Screening Dental Screen Date: 08/03/23 HPI f/u CPE-labs via telemedicine HPI Details 78 y/o female presents to f/u CPE-labs via telemedicine. Labs were drawn 11/20/23. Reviewed labs with pt. Elevated fasting glucose of 102. Triglycerides 187. TC 162. LDL 81. HDL 44. She is on artovastatin 40mg daily. Vitamin D 38.6. Has ongoing complaints of cervicalgia/headaches. [facility] Surgical History History of appendectomy History of cataract surgery Family History Sister Kidney failure Social History Housing: Apartment Patient Tobacco Use Status: Never used Tobacco e-Cigarette/Vaping Use: Never Used service: No Current occupational status: retired Current occupational exposures/hazards: No Cognitive needs: No Hearing needs: No Vision needs: No Questionnaire Thrive Questionnaire Date Thrive assessed: 08/03/23 JULIETH-7 AMB Questionnaire JULIETH-7 Date JULIETH - 7 assessed: 08/03/23 Source: Developed by Drs. Kris Arellano, Ana Yusuf, Maciej Haddad and colleagues, with an educational annette from [employer]. Review of Systems Const Denies chills, Denies fatigue, Denies fever(s), Denies headache(s) and Denies weakness ENT Denies dizziness and Denies headache(s) Card Denies dyspnea Resp Denies cough, Denies dyspnea, Denies wheezing and Denies other (shortness of breath) Musc Denies numbness and Denies tingling Neuro Denies dizziness, Denies headache(s), Denies numbness, Denies tingling and Denies weakness Psych Denies anxiety and Denies depression Endo Denies fatigue Aller/Immun Denies wheezing Physical exam (Primary Care) Vital Signs: Last Vital Signs BP 122/72 12/28/23 16:23 Tobacco/Smoking Status: Tobacco use Status Tobacco use date assessed 11/15/23 12/28/23 16:25 Patient Tobacco Use Status Never used Tobacco 12/28/23 16:25 e-Cigarette/Vaping Use Never Used 12/28/23 16:25 Thrive Assessment: Date of Thrive Assessment Date Thrive assessed 08/03/23 12/28/23 16:25 Telehealth Telehealth Telehealth Platform: Telephone Location of provider rendering services: practice address Location of patient: address on file Patient Identification confirmed using: Name, : Yes Telehealth method: voice only Patient verbally consented to treatment: Yes Patient verbally consented to billing insurance company: Yes Patient informed of any privacy concerns related to visit: Yes Minutes spent on Phone/Video with Pt.: 5 Assessment and Plan Assessment & Plan (1) Hyperlipidemia: Code(s): E78.5 - Hyperlipidemia, unspecified Plan: Triglycerides?mildly?elevated,?likely?secondary?to?high?blood?sugars?from?diabetes. Her?other?lipids?are?well?controlled?on?atorvastatin Continue?atorvastatin (2) Diabetes: Code(s): E11.9 - Type 2 diabetes mellitus without complications Plan: Fasting?blood?sugar?102?is?fairly?good?control. No?changes?advised?today (3) Cervicalgia: Code(s): M54.2 - Cervicalgia Plan: Cervicalgia?and?headaches.??Ongoing?discomfort. Had?made?a?referral?to?physical?therapy?but?patient?says?she?has?been?contact?yet.??Will?ask?the?MA?to?contact?her?and?help?get?her?scheduled. (4) Headache: Code(s): R51.9 - Headache, unspecified Plan: As?above Coding Level of Care Code Tele Est Pt Level 2 (66524) Diagnoses Hyperlipidemia E78.5 Diabetes E11.9 Cervicalgia M54.2 Headache R51.9
[2023-12-28 16:23] VITALS: BP 122/72
== END ==
PROVIDERS: PCP Family Medicine; Visit Provider Family Medicine
DX: E78.5 Hyperlipidemia, unspecified (principal); E11.69 Type 2 diabetes mellitus with other specified complication; M54.2 Cervicalgia; R51.9 Headache, unspecified
CPT/HCPCS: 99441

== ENCOUNTER 2024-02-08 11:00 | Outpatient (RCR) | payer MEDICARE, SELFPAY ==
--- NOTE | 2024-01-23 15:13 | MHC.PT.EP ---
[facility] [place] Office [place] Office [place] Office [address] [phone] F: [phone] F: [phone] F: [phone] F: [phone] Physical Therapy Plan of Care Date of Evaluation: 01/23/24 Date of Surgery: Diagnosis: cervicalgia JOINER Assessment: 78 y/o R-hand dominant female referred to PT with cervicalgia. Reports L sided neck pain with intermittent JOINER for several months of insidious onset. Reports pain and difficulty with sleeping, lifting, and computer work. Examination shows decreased cervical AROM, decreased L-sided cervical strength, normal reflexes, normal shoulder ROM, slightly decreased L shoulder abduction strength, and impaired posture. Recommend PT1x/week for 4 weeks to address impairments, implements HEP, and optimize functional mobility. 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 Manual therapy to restore motion and function. Therapeutic exercise to improve strength and flexibility. Neuromuscular re-education for posture and balance. Therapeutic activities to return to functional activities of daily living. Electronically signed by: Bree Nathan PT Please sign and return to therapist. Thank you for your referral.
--- NOTE | 2024-03-19 08:48 | MHC.PT.DC ---
[facility] [place] Office [place] Office [place] Office [address] [phone] F: [phone] F: [phone] F: [phone] F: [phone] Physical Therapy Discharge Report Diagnosis: cervicalgia JOINER Date of Surgery: Date of Evaluation: 01/23/24 Date of Discharge: 03/19/24 Treatments to Date: 3 Cancellations to Date: 0 No Shows to Date: Discharge Status: Improved Function Independent with HEP Discharge Summary: She reports I with HEP with some improvement in her JOINER/ L suboccipital pain. At this time, she feels that she will f/u with her MD regarding plateau in JOINER. D/c chart at this time to I HEP. Electronically signed by: Bree Nathan PT Please sign and return to therapist. Thank you for your referral.
== END 2024-03-19 08:48 | disposition home or self-care (01) ==
LOC: HO.PT 11:00
PROVIDERS: PCP Family Medicine; Visit Provider Family Medicine
DX: R51.9 Headache, unspecified (principal); M54.2 Cervicalgia
CPT/HCPCS: 97110; 97140; 97161

== ENCOUNTER 2024-02-15 09:57 | Outpatient (AMB) | payer MEDICARE, SELFPAY ==
--- NOTE | 2024-02-15 10:00 | A.OFFPC_ITS ---
Vital Signs 02/15/24 10:07 02/15/24 10:11 Height 4 ft 11 in Weight 109 lb BMI 22.0 BP 140/80 H 130/68 Blood Pressure Location Rt brachial Rt brachial Position Sitting Sitting Respiration 16 Pulse 98 Pulse Source Pulse Oximeter Temp 98 F Temp Source Oral Pulse Oximetry (%) 99 Oxygen Delivery Method Room Air Intake Visit Reasons: f/u diabetes Intake Note: cologaurd results and diabetes follow Allergies Seasonal Allergies Allergy (Mild, Verified 02/15/24 10:05) allergies nitrofurantoin [From Macrobid] Adverse Reaction (Mild, Verified 02/15/24 10:05) headache, stomach ache. broccoli Allergy (Mild, Uncoded 11/15/23 12:03) congestion cats Allergy (Mild, Uncoded 11/15/23 12:03) Swelling dogs Allergy (Mild, Uncoded 11/15/23 12:03) Swelling chemicals Adverse Reaction (Uncoded 11/15/23 12:03) Unknown Medication List - Last Reconciled 02/15/24 by Barry Young MD atorvastatin 40 mg PO DAILY 90 days blood sugar diagnostic ([employer] Verio test strips) 2 times a day As directed, 90 days glipizide ER 5 mg PO DAILY 90 days ipratropium bromide 2 sprays intranasal TID 30 days lancets ([employer] Delica Safety Lancet) 2 times a day As directed, 90 days lisinopril 30 mg PO DAILY 90 days metformin ER 500 mg PO BID 90 days Tobacco use date assessed: 11/15/23 Dental Screening Dental Screen Date: 08/03/23 HPI f/u diabetes HPI Details 78 y/o female presents to f/u diabetes, hypertension. Blood pressure today 130/68. He is on lisinopril 30mg daily. A1c today 02/15/24 6.9%. Bacteria in urine and pt denies any urinary symptoms. [facility] Surgical History History of appendectomy History of cataract surgery Family History Sister Kidney failure Social History Housing: Apartment Patient Tobacco Use Status: Never used Tobacco e-Cigarette/Vaping Use: Never Used service: No Current occupational status: retired Current occupational exposures/hazards: No Cognitive needs: No Hearing needs: No Vision needs: No Questionnaire Thrive Questionnaire Date Thrive assessed: 08/03/23 JULIETH-7 AMB Questionnaire JULIETH-7 Date JULIETH - 7 assessed: 08/03/23 Source: Developed by Drs. Kris Arellano, Ana Yusuf, Maciej Haddad and colleagues, with an educational annette from [email or web address]. Review of Systems Const Denies chills, Denies fatigue, Denies fever(s), Denies headache(s) and Denies weakness ENT Denies dizziness and Denies headache(s) Card Denies dyspnea Resp Denies cough, Denies dyspnea, Denies wheezing and Denies other (shortness of breath) Musc Denies numbness and Denies tingling Neuro Denies dizziness, Denies headache(s), Denies numbness, Denies tingling and D enies weakness Psych Denies anxiety and Denies depression Endo Denies fatigue Aller/Immun Denies wheezing Physical exam (Primary Care) Vital Signs: Last Vital Signs Temp 98 F 02/15/24 10:07 Pulse 98 02/15/24 10:07 Resp 16 02/15/24 10:07 BP 130/68 02/15/24 10:11 Pulse Ox 99 02/15/24 10:07 Oxygen Delivery Method Room Air 02/15/24 10:07 BMI result Body Mass Index 22.0 Tobacco/Smoking Status: Tobacco use Status Tobacco use date assessed 11/15/23 02/15/24 10:02 Patient Tobacco Use Status Never used Tobacco 02/15/24 10:02 e-Cigarette/Vaping Use Never Used 02/15/24 10:02 Thrive Assessment: Date of Thrive Assessment Date Thrive assessed 08/03/23 02/15/24 10:02 Const General: well developed; No acute distress Nutritional Appearance: well nourished Orientation/consciousness: patient oriented x3 HENMT Head: Yes normocephalic and Yes atraumatic Eyes General: appearance normal, both eyes and all related structures Pupils: Equal, round and reactive pupils present EOM: EOMs intact bilaterally Resp Effort & Inspection: normal respiratory effort Neuro General: patient oriented x3 and gait normal Cranial nerves: Yes Equal, round and reactive pupils present Psych Affect: normal affect Assessment and Plan Assessment & Plan (1) Diabetes: Code(s): E11.9 - Type 2 diabetes mellitus without complications Plan: A1c?now?6.9%.??Had?been?7.3%?at?last?check?and?she?wanted?to?improve?lifestyle?c hanges. Now?at?goal Encouraged?her?to?keep?working?on?this No?medication?changes?made?today. Ophthalmology?appointment?was?in?September?and?showed?no?diabetic?retinopathy Up-to-date (2) Hypertension: Code(s): I10 - Essential (primary) hypertension Plan: Blood?pressure?is?controlled.??Goal?is?less?than?140/90 Continue?current?medication?regimen (3) Asymptomatic bacteriuria: Code(s): R82.71 - Bacteriuria Plan: Patient?has?had?some?urinary?tract?infections?and?bacteriuria She?requests?repeat?urinalysis?which?I?will?send Had?given?her?Bactrim?and?she?said?this?bothered?her?stomach?somewhat?and?would? prefer?amoxicillin?if?needed (4) Screening for colon cancer: Code(s): Z12.11 - Encounter for screening for malignant neoplasm of colon Plan: Patient?had?Cologuard?test?in?December Negative We?can?continue?routine?screening?every?3?years Orders: Orders UA and rflx microscopic Today R35.0 - Frequency of micturition, Z00.00 - Encounter for general adult medical examination without abnormal findings Coding Level of Care Code Est Pt Level 4 (34893) Diagnoses Diabetes E11.9 Hypertension I10 Asymptomatic bacteriuria R82.71 Screening for colon cancer Z12.11
[2024-02-15 10:07] VITALS: BP 140/80; PULSE 98; RESP 16; TEMP 36.6; O2SAT 99; BMI 22.0
[2024-02-15 10:11] VITALS: BP 130/68
== END 2024-02-15 11:12 | disposition home or self-care (01) ==
PROVIDERS: PCP Family Medicine; Visit Provider Family Medicine
DX: E11.9 Type 2 diabetes mellitus without complications (principal); I10 Essential (primary) hypertension; R82.71 Bacteriuria; Z12.11 Encounter for screening for malignant neoplasm of colon
CPT/HCPCS: 99214

== ENCOUNTER 2024-02-15 14:34 | Outpatient (REF) | payer MEDICARE, SELFPAY ==
[2024-02-15 14:49] LABS: Appearance Urine Clear; Color Urine Yellow; Glucose Urine UA 500 mg/dL (Negative); Leukocyte Esterase Urine Moderate (2+) (Negative); Nitrite Urine Positive (Negative); PH 5.5 (5.0-9.0); UMIC TRIGGER UA YES; Urine Blood Negative (Negative); Urine Ketones Negative (Negative); Urine Protein Negative (Neg-Trace)
[2024-02-15 14:55] LABS: Bacteria Urine 4+ (None Seen); RBC Urine 0-2 /HPF (0-2); Squamous Epithelial Cell Urine 0-2 /HPF (0-2); WBC Urine >50 /HPF (0-5)
== END 2024-02-15 14:35 | disposition home or self-care (01) ==
LOC: HO.LNP 14:34
PROVIDERS: Visit Provider Family Medicine
DX: Z00.00 Encounter for general adult medical examination without abnormal findings (principal); R35.0 Frequency of micturition
CPT/HCPCS: 81001

== ENCOUNTER 2024-02-19 10:48 | Outpatient (REF) | payer MEDICARE, SELFPAY ==
--- NOTE | ~2024-02-19 | XR_ITS ---
EXAMINATION: XR SKULL CLINICAL INFORMATION: Painful mass of posterior scalp/neck. COMPARISON: None available. TECHNIQUE: 5 views of the skull were obtained. FINDINGS: Bony alignment and mineralization are normal. The left frontal sinus is somewhat hypoplastic. The remaining paranasal sinuses are well aerated and clear. No mucosal thickening or air-fluid level is seen. There is no bone erosion. The nasal septum is midline. The mandible is intact. No focal soft tissue swelling, gas or foreign body seen. XR/XR skull <4V IMPRESSION: Unremarkable examination. Electronically signed by: Vaibhav Higginbotham MD 03/19/2024 07:16 PM EDT
--- NOTE | ~2024-02-19 | XR_ITS ---
EXAMINATION: XR CERVICAL SPINE CLINICAL INFORMATION: Cervicalgia and palpable lump on back of neck. COMPARISON: None available. TECHNIQUE: Frontal, lateral and odontoid views are obtained. FINDINGS: Vertebral body heights and alignment are normal. At C5-6 and C6-7, there is moderate disc space narrowing. The remaining disc spaces are well-maintained. No acute fracture or spondylolisthesis is seen. There is multi-level cervical endplate arthropathy. The posterior elements are intact. The dens and C7-T1 interface are normal. There is no prevertebral soft tissue swelling. There are coarse bilateral carotid atherosclerotic calcifications. XR/XR cervical spine 2V IMPRESSION: 1. There is moderate degenerative disc disease at C5-6 and C6-7. 2. No acute fractures or spondylolisthesis seen. 3. There are coarse bilateral carotid atherosclerotic calcifications, which can be more fully evaluated with dedicated carotid ultrasound, if clinically indicated. Electronically signed by: Vaibhav Higginbotham MD 03/19/2024 10:04 AM EDT RP
== END 2024-02-19 10:49 | disposition home or self-care (01) ==
LOC: HO.XRAY 10:48
PROVIDERS: PCP Family Medicine; Visit Provider Family Medicine
DX: R22.0 Localized swelling, mass and lump, head (principal); M54.2 Cervicalgia
CPT/HCPCS: 70250; 72040

== ENCOUNTER 2024-02-27 12:45 | Outpatient (AMB) | payer MEDICARE, SELFPAY ==
[2024-02-27 13:02] VITALS: BP 170/86; PULSE 105; BMI 21.9
--- NOTE | 2024-02-27 13:02 | MHC.OFFVIS ---
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 broccoli Allergy (Mild, Uncoded 11/15/23 12:03) congestion cats Allergy (Mild, Uncoded 11/15/23 12:03) Swelling dogs Allergy (Mild, Uncoded 11/15/23 12:03) Swelling chemicals Adverse Reaction (Uncoded 11/15/23 12:03) Unknown Medication List - Last Reconciled 02/27/24 by Dave Rolon MD atorvastatin 40 mg PO DAILY 90 days blood sugar diagnostic ([employer] Verio test strips) 2 times a day As directed, 90 days glipizide ER 5 mg PO DAILY 90 days ipratropium bromide 2 sprays intranasal TID 30 days lancets ([employer] Delica Safety Lancet) 2 times a day As directed, 90 days lisinopril 30 mg PO DAILY 90 days metformin ER 500 mg PO BID 90 days HPI Comments Details: Regine has been referred for evaluation diastolic dysfunction. Patient has a history of hypertension and diabetes. She states that her blood pressure goes up in doctor's offices because of anxiety. Otherwise, she showed me her own home blood pressures and they are very much in the normal range below 120/80 mm Hg. Otherwise, she does not have any known cardiac issues like coronary disease myocardial infarction or cardiomyopathy. She walks almost 5 miles regularly with no issues. Never had angina or any cardiac complaints. [facility] Surgical History History of appendectomy History of cataract surgery Family History Sister Kidney failure Social History Housing: Apartment Patient Tobacco Use Status: Never used Tobacco e-Cigarette/Vaping Use: Never Used service: No Current occupational status: retired Current occupational exposures/hazards: No Cognitive needs: No Hearing needs: No Vision needs: No Review of Systems Const Denies chills, Denies daytime sleepiness, Denies fatigue, Denies fever(s), Denies poor appetite, Denies snoring, Denies stops breathing during sleep, Denies weakness, Denies weight gain and Denies weight loss Eyes Denies loss of vision ENT Denies dizziness and Denies hearing loss Card Denies chest pain, Denies irregular heart rhythm, Denies claudication, Denies leg edema, Denies lightheadedness, Denies palpitations, Denies dyspnea on exertion and Denies orthopnea Resp Denies cough, Denies excessive phlegm production, Denies dyspnea on exertion, Denies snoring and Denies wheezing GI Denies abdominal pain, Denies hematochezia, Denies change in bowel habits, Denies nausea and Denies vomiting Denies urinary frequency and Denies dysuria Musc Denies arthralgias, Denies muscle weakness, Denies numbness and Denies other Skin/Breast Denies nail changes and Denies rash Neuro Denies Abnormal speech present, Denies dizziness, Denies loss of vision, Denies memory loss, Denies numbness and Denies weakness Psych Denies depression and Denies memory loss Endo Denies fatigue and Denies palpitations Kenny/Lymph Denies easy bruising Aller/Immun Denies wheezing Physical Exam Vital Signs: Last Vital Signs Pulse 105 H 02/27/24 13:02 BP 170/86 H 02/27/24 13:02 BMI result Body Mass Index 21.9 Neuro Speech: No Abnormal speech present Office Procedures EKG Details: EKG with underlying sinus tachycardia at 105/Min; possible left atrial enlargement; no significant ST-T changes; [place] [id number], Complete Assessment & Plan Assessment & Plan (1) Diastolic dysfunction: Code(s): I51.89 - Other ill-defined heart diseases Category: Medical Plan In the recent echocardiogram, hyperdynamic LVEF; mild diastolic dysfunction and no significant valvular issues. Pathophysiology of diastolic dysfunction discussed with patient in great detail. Explained that it is a consequence of age as well as comorbidities like hypertension. Clinically, she has got absolutely no symptoms and walks several miles with no issues. In this instance, mainly risk factor modification only. Aggressive control of hypertension and diabetes. With regard to hypertension, home blood pressures are very much in the normal range and it seems she does have white coat hypertension. Otherwise, advised her to contact us with any cardiac symptoms or concerns. Coding Level of Care Code New Pt Level 3 (22443) Diagnoses Diastolic dysfunction I51.89 CPT Codes EKG - CPT: 79200-[id number], Complete ([id number])
== END 2024-02-27 14:14 | disposition home or self-care (01) ==
PROVIDERS: PCP Family Medicine; Visit Provider Internal Medicine
DX: I51.89 Other ill-defined heart diseases (principal); R00.0 Tachycardia, unspecified
CPT/HCPCS: 93010; 99213

== ENCOUNTER → 2024-02-27 12:45 | Outpatient (BNVA) | payer MEDICARE, SELFPAY | PROVIDERS: PCP Family Medicine; Visit Provider Internal Medicine | DX: I51.89 Other ill-defined heart diseases (principal) | CPT/HCPCS: 93005; 99212 ==

== ENCOUNTER 2024-04-03 09:47 | Outpatient (REF) | payer MEDICARE, SELFPAY ==
--- NOTE | ~2024-04-03 | MM_ITS ---
EXAMINATION: BONE DENSITOMETRY CLINICAL INDICATION: Age-related osteoporosis without current pathological fracture. COMPARISON: This is the patient's baseline examination. TECHNIQUE: Using a [employer] DXA System (software version: 13.1) manufactured by [employer], dual-energy x-ray absorptiometry was performed of the lumbar spine and left hip. The images are of good technical quality. Summary results are attached. FINDINGS: LEFT FEMUR, NECK: BMD 0.787 g/cm2, Z-score 0.5, T-score -1.8, osteopenia. LEFT FEMUR, TOTAL: BMD 0.729 g/cm2, Z-score 0.0, T-score -2.2, osteopenia. AP SPINE L1-L4: BMD 0.721 g/cm2, Z-score -1.5, T-score -3.8, osteoporosis. IDENTIFIED RISK FACTORS: Menopause, hysterectomy, bilateral oophorectomy, osteoporosis. HISTORY OF FRACTURE: None listed. MEDICATIONS: None listed. MM/XR DEXA axial skeleton IMPRESSION: 1. DIAGNOSIS: Osteoporosis based on the lowest T-score value of -3.8 in the lumbar spine applying World Health Organization criteria. 2. 10-YEAR FRACTURE RISK PREDICTION, FRAX: According to the guidelines, FRAX calculation should only be performed on patients in the osteopenia bone density category. Therefore, FRAX was not performed on this patient. 3. Treatment Recommendations: NOF guidelines recommend consideration for treatment in postmenopausal women and men age 50 and older presenting with the following: -A hip or vertebral (clinical or morphometric) fracture. -T-score less than or equal to -2.5 at the femoral neck or spine after appropriate evaluation to exclude secondary causes. -Low bone mass at the hip or spine and a 10-year fracture probability by FRAX of greater than or equal to 3% for hip fracture or greater than or equal to 20% for major osteoporotic fracture based on the [place] adapted WHO algorithm. 4. Other Recommendations: All treatment decisions require clinical judgment and consideration of individual patient factors, including patient preferences, comorbidities, previous drug use, risk factors not captured in the FRAX model (e.g. frailty, falls, vitamin D deficiency, increased bone turnover, interval significant decline in bone density) and possible under or overestimation of fracture risk by FRAX. Additional medical evaluation for secondary cause of low bone mineral density may be appropriate. FUTURE SCAN RECOMMENDATION: People with diagnosed cases of osteoporosis or at high risk for fracture should have regular bone mineral density tests. For patients eligible for Medicare, routine testing is allowed once every 2 years. The testing frequency can be increased to one year for patients who have rapidly progressing disease, those who are receiving or discontinuing medical therapy to restore bone mass, or have additional risk factors. Electronically signed by: Barbara Ashley MD 04/16/2024 08:32 AM EDT
--- NOTE | ~2024-04-03 | MM_ITS ---
EXAMINATION: MM SCREENING DIGITAL BREAST TOMOSYNTHESIS, BILATERAL CLINICAL INFORMATION: Screening. Asymptomatic. COMPARISON: Mammography: Comparison is made with available priors TECHNIQUE: Digital breast mammography with tomosynthesis is performed in both the craniocaudal and mediolateral oblique views along with computer-aided detection (CAD). FINDINGS: There are scattered areas of fibroglandular density (ACR BI-RADS breast composition Category b). Left: There are no significant masses, abnormal calcifications, or other abnormalities. Right: There is architectural distortion in the retroareolar region posterior depth on CC view and possible symphysis images which localizes inferiorly questioned centrally. No suspicious calcifications or other abnormal findings. MM/MM tomosynthesis screening BI IMPRESSION: Additional imaging is recommended ASSESSMENT: BI-RADS BI-RADS 0 - Incomplete: Needs additional Imaging. RECOMMENDATION: 1. Additional views of the right breast 2. Targeted ultrasound if warranted after review of the additional views. 3. Radiology department staff will contact the patient for additional imaging. Additional Imaging required This examination should not preclude the clinical evaluation of a suspicious palpable abnormality. This patient's information was entered into a reminder system with a target due date for their next mammogram. Electronically signed by: Mayte Fitzpatrick DO 04/15/2024 05:15 PM EDT
== END 2024-04-03 09:48 | disposition home or self-care (01) ==
LOC: HO.MAMMO 09:47
PROVIDERS: PCP Family Medicine; Visit Provider Family Medicine
DX: Z12.31 Encounter for screening mammogram for malignant neoplasm of breast (principal); M81.0 Age-related osteoporosis without current pathological fracture
CPT/HCPCS: 77063; 77067; 77080

== ENCOUNTER → 2024-04-03 10:00 | Outpatient (BNV) | payer MEDICARE, SELFPAY | PROVIDERS: PCP Family Medicine; Visit Provider Internal Medicine | DX: Z12.31 Encounter for screening mammogram for malignant neoplasm of breast (principal) | CPT/HCPCS: 77063; 77067 ==

== ENCOUNTER 2024-04-17 13:34 | Outpatient (REF) | payer MEDICARE, SELFPAY ==
--- NOTE | ~2024-04-17 | MM_ITS ---
EXAMINATION: MM DIAGNOSTIC DIGITAL BREAST TOMOSYNTHESIS, RIGHT CLINICAL INFORMATION: Diagnostic to evaluate focus of architectural distortion inferior central right breast seen on screening exam 04/03/2024. Additional information obtained, patient has had surgery with benign excisional biopsy in this region (20 years ago), and additional views were performed with scar markers placed. COMPARISON: Mammography: 04/03/2025, 03/27/2023, 03/23/2022, 03/17/2021. TECHNIQUE: Digital breast tomosynthesis is performed in the following views: Full field 3-D right mediolateral view, as well as 3-D spot compression right CC and MLO views. Computer-aided diagnosis was used for this study. FINDINGS: The breasts are heterogeneously dense, which may obscure small masses (ACR BI-RADS breast composition Category c). Surgical scar marker overlies the inferior mid right breast, spanning approximately 4:00 to 7:00. This correlates with the region of architectural distortion in the inferior aspect of the right breast in question. Finding is consistent with a surgical scar. No suspicious findings are evident within the right breast. There are a few scattered benign and vascular calcifications. No skin or axillary abnormality. MM/MM tomosynthesis added views R IMPRESSION: -There are no persistent findings suspicious for malignancy. -Region of architectural distortion in the inferior central right breast correlates with known surgical scar. This is benign. No further follow-up recommended. -Recommend the patient return to routine annual screening. ASSESSMENT: BI-RADS BI-RADS 2 - Benign Findings RECOMMENDATION: 1 year F/U Results were provided to the patient at time of visit by the technologist. This patient's information was entered into a reminder system with a target due date for their next mammogram. Electronically signed by: Hi Kebede MD 04/17/2024 02:26 PM EDT
== END 2024-04-17 13:35 | disposition home or self-care (01) ==
LOC: HO.MAMMO 13:34
PROVIDERS: PCP Family Medicine; Visit Provider Family Medicine
DX: N64.89 Other specified disorders of breast (principal)
CPT/HCPCS: 77061; 77065

== ENCOUNTER → 2024-04-17 14:00 | Outpatient (BNV) | payer MEDICARE, SELFPAY | PROVIDERS: PCP Family Medicine; Visit Provider Radiology Diagnostic Radiology | DX: R92.331 Mammographic heterogeneous density, right breast (principal); L91.0 Hypertrophic scar | CPT/HCPCS: 77065; G0279 ==

== ENCOUNTER 2024-06-04 11:10 | Outpatient (AMB) | payer MEDICARE, SELFPAY ==
--- NOTE | 2024-06-04 11:37 | A.OFFPC_ITS ---
Vital Signs 06/04/24 11:45 Height 4 ft 11 in Weight 111 lb 6 oz BMI 22.5 BP 130/80 Blood Pressure Location Rt brachial Position Sitting Respiration 16 Pulse 88 Pulse Source Pulse Oximeter Pulse Oximetry (%) 97 Oxygen Delivery Method Room Air Intake Visit Reasons: f/u diabetes Intake Note: f/u dm Allergies Seasonal Allergies Allergy (Mild, Verified 06/04/24 11:44) allergies nitrofurantoin [From Macrobid] Adverse Reaction (Mild, Verified 06/04/24 11:44) headache, stomach ache. broccoli Allergy (Mild, Uncoded 11/15/23 12:03) congestion cats Allergy (Mild, Uncoded 11/15/23 12:03) Swelling dogs Allergy (Mild, Uncoded 11/15/23 12:03) Swelling chemicals Adverse Reaction (Uncoded 11/15/23 12:03) Unknown Medication List - Last Reconciled 06/04/24 by Barry Young MD atorvastatin 40 mg PO DAILY 90 days blood sugar diagnostic ([employer] Verio test strips) 2 times a day As directed, 90 days glipizide ER 5 mg PO DAILY 90 days ipratropium bromide 2 sprays intranasal TID 30 days lancets ([employer] Delica Safety Lancet) 2 times a day As directed, 90 days lisinopril 30 mg PO DAILY 90 days metformin ER 500 mg PO BID 90 days Tobacco use date assessed: 11/15/23 Dental Screening Dental Screen Date: 08/03/23 HPI f/u diabetes HPI Details 78 y/o female presents to / diabetes. A1c today 06/04/24 7.3%. Prior A1c 6.9%. She is on metformin 500mg b.i.d, glipizide 5mg. Saw Dr. Rolon 02/27/24 for diastolic dysfunction. Recommended aggressive control of hypertension and diabetes. Blood pressure today 130/80, 88p. She is on lisinopril 30mg daily. Neck x-ray shows arthritis. Recent bone density test shows osteoporosis. [facility] Surgical History History of appendectomy History of cataract surgery Family History Sister Kidney failure Social History Housing: Apartment Patient Tobacco Use Status: Never used Tobacco e-Cigarette/Vaping Use: Never Used service: No Current occupational status: retired Current occupational exposures/hazards: No Cognitive needs: No Hearing needs: No Vision needs: No Questionnaire PHQ-9 Over the last 2 weeks, how often have you been bothered by any of the following problems? 1. Little interest or pleasure in doing things: not at all 2. Feeling down, depressed, or hopeless: not at all 3. Trouble falling or staying asleep, or sleeping too much: not at all 4. Feeling tired or having little energy: not at all 5. Poor appetite or overeating: not at all 6. Feeling bad about yourself - or that you are a failure or have let yourself or your family down: not at all 7. Trouble concentrating on things, such as reading the newspaper or watching television: not at all 8. Moving or speaking so slowly that other people could have noticed. Or the opposite - being so fidgety or restless that you have been moving around a lot more than usual: not at all 9. Thoughts that you would be better off or of hurting yourself in some way: not at all Total score: 0 Source: Developed by Drs. Kris Arellano, Ana Yusuf, Maciej Haddad and colleagues, with an educational annette from [employer]. Thrive Questionnaire Date Thrive assessed: 05/28/24 I am a: Patient What is your living situation today?: I have a steady place to live Within the past 12 months, did the food you bought not last and you didn't have the money to get more?: Never true Within the past 12 months, did you worry whether your food would run out before you got money to buy more?: Never true Do you have trouble paying for medicines?: No Do you have trouble getting transportation to medical appointments?: No Do you have trouble paying your heating and electricity bill?: I choose not to answer this question Do you have trouble taking care of your child, family member or friend?: I choose not to answer this question Do you have trouble with day-to-day activities such as bathing, preparing meals, shopping, managing finances, etc.?: No Are you currently unemployed and looking for a job?: No Are you interested in more education?: No Please select the resources that you would like help with: None Currently or been in a relationship where the following occur: No concerns r eported THRIVE Score: 0 AUDIT C Alcohol Use Questionnaire (AUDIT-C) 1. How often do you have a drink containing alcohol?: Never Total Score: 0 JULIETH-7 AMB Questionnaire JULIETH-7 Date JULIETH - 7 assessed: 08/03/23 Feeling nervous, anxious, or on edge: 0 = Not at all Not being able to stop or control worryin = Not at all Worrying too much about different things: 0 = Not at all Trouble relaxin = Not at all Being so restless that it is hard to sit still: 0 = Not at all Becoming easily annoyed or irritable: 0 = Not at all Feeling afraid as if something awful might happen: 0 = Not at all Total JULIETH-7 score (0-4 normal; 5-9 mild; 10-14 moderate; 15-21 severe): 0 Source: Developed by Drs. Kris Arellano, Ana Yusuf, Maciej Haddad and colleagues, with an educational annette from [employer]. Review of Systems Const Denies chills, Denies fatigue, Denies fever(s), Denies headache(s) and Denies weakness ENT Denies dizziness and Denies headache(s) Card Denies dyspnea Resp Denies cough, Denies dyspnea, Denies wheezing and Denies other (shortness of b reath) Musc Denies numbness and Denies tingling Neuro Denies dizziness, Denies headache(s), Denies numbness, Denies tingling and Denies weakness Psych Denies anxiety and Denies depression Endo Denies fatigue Aller/Immun Denies wheezing Physical exam (Primary Care) Vital Signs: Last Vital Signs Pulse 88 06/04/24 11:45 Resp 16 06/04/24 11:45 BP 130/80 06/04/24 11:45 Pulse Ox 97 06/04/24 11:45 Oxygen Delivery Method Room Air 06/04/24 11:45 BMI result Body Mass Index 22.5 Tobacco/Smoking Status: Tobacco use Status Tobacco use date assessed 11/15/23 06/04/24 11:38 Patient Tobacco Use Status Never used Tobacco 06/04/24 11:38 e-Cigarette/Vaping Use Never Used 06/04/24 11:38 PHQ-9: PHQ-9 Score PHQ-9: Total score 0 06/04/24 12:21 Thrive Assessment: Date of Thrive Assessment Date Thrive assessed 05/28/24 06/04/24 11:38 Currently or been in a relationship where the following occur: No concerns reported Const General: well developed; No acute distress Nutritional Appearance: well nourished Orientation/consciousness: patient oriented x3 HENMT Head: Yes normocephalic and Yes atraumatic Eyes General: appearance normal, both eyes and all related structures Pupils: Equal, round and reactive pupils present EOM: EOMs intact bilaterally Resp Effort & Inspection: normal respiratory effort Neuro General: patient oriented x3 and gait normal Cranial nerves: Yes Equal, round and reactive pupils present Psych Affect: normal affect Coding Level of Care Code Est Pt Level 4 (24593) Diagnoses Diabetes E11.9 Hypertension I10 Mild diastolic dysfunction I51.9 Hyperlipidemia E78.5 Cervicalgia M54.2 Osteoporosis M81.0 Carotid bruit R09.89 Assessment & Plan Assessment & Plan (1) Diabetes: Code(s): E11.9 - Type 2 diabetes mellitus without complications Category: Medical Plan: A1c?climbed?again?to?7.3%.??Goal?is?less?than?7% Discussed?increasing?her?glipizide?the?charla ent?would?like?to?work?at?lifestyle?changes?again We?did?discuss?that?if?A1c?is?still?elevated?at?next?visit?we?will?adjust?her?me dication. Continue?glipizide?and?metformin?as?prescribed. Work?on?lifestyle?changes (2) Hypertension: Code(s): I10 - Essential (primary) hypertension Category: Medical Plan: Blood?pressure?is?fairly?well?controlled?in?the?office?today?and?patient?does?gamez ve?white?coat?syndrome. No?changes?to?medication?regimen.??Goal?is?less?than?130/80 (3) Mild diastolic dysfunction: Code(s): I51.9 - Heart disease, unspecified Category: Medical Plan: Stable Followed?by?cardiology Continue?to?maintain?good?blood?sugar?and?blood?pressure?control Follow-up?with?Cardiology?as?recommended (4) Hyperlipidemia: Code(s): E78.5 - Hyperlipidemia, unspecified Category: Medical Plan: Taking?atorvastatin?40?mg?daily,?as?prescribed She?does?have?carotid?calcifications?in?faint?bruit?at?left?carotid?artery Continue?atorvastatin Will?check?carotid?duplex (5) Cervicalgia: Code(s): M54.2 - Cervicalgia Category: Medical Plan: X-rays?show?osteoarthritis Continue?conservative?care (6) Osteoporosis: Code(s): M81.0 - Age-related osteoporosis without current pathological fracture Category: Medical Plan: Offered?alendronate?but?patie nt?wants?to?continue?working?at?good?sources?of?calcium?and?vitamin-D?weight-julio ring?exercise. (7) Carotid bruit: Code(s): R09.89 - Other specified symptoms and signs involving the circulatory and respiratory systems Category: Medical Plan: As?above, Carotid?duplex?is?ordered Orders: Orders US carotid duplex BI Today R09.89 - Other specified symptoms and signs involving the circulatory and respiratory systems Medications: Refilled ipratropium bromide administer into each nostril 2 sprays intranasal TID 15 mL 2RF 30 days
[2024-06-04 11:45] VITALS: BP 130/80; PULSE 88; RESP 16; O2SAT 97; BMI 22.5
== END 2024-06-04 12:43 | disposition home or self-care (01) ==
PROVIDERS: PCP Family Medicine; Visit Provider Family Medicine
DX: E11.9 Type 2 diabetes mellitus without complications (principal); I10 Essential (primary) hypertension; I51.9 Heart disease, unspecified; E78.5 Hyperlipidemia, unspecified; M54.2 Cervicalgia; M81.0 Age-related osteoporosis without current pathological fracture; R09.89 Other specified symptoms and signs involving the circulatory and respiratory systems

== ENCOUNTER → 2024-06-04 11:10 | Outpatient (BNVA) | payer MEDICARE, SELFPAY | PROVIDERS: PCP Family Medicine; Visit Provider Family Medicine | DX: E11.9 Type 2 diabetes mellitus without complications (principal); I10 Essential (primary) hypertension; I51.9 Heart disease, unspecified; E78.5 Hyperlipidemia, unspecified; M54.2 Cervicalgia; M81.0 Age-related osteoporosis without current pathological fracture; R09.89 Other specified symptoms and signs involving the circulatory and respiratory systems | CPT/HCPCS: 96127; 99212 ==

== ENCOUNTER 2024-06-13 13:49 | Outpatient (REF) | payer MEDICARE, SELFPAY ==
--- NOTE | ~2024-06-13 | US_ITS ---
EXAMINATION: US EXTRACRANIAL CAROTID DUPLEX, BILATERAL CLINICAL INFORMATION: Bruit COMPARISON: None available. TECHNIQUE: Real-time ultrasound and Doppler techniques (integrating B-mode 2-D vascular images, Doppler spectral analysis and color-flow Doppler imaging) were utilized to interrogate the extracranial carotid arteries, the vertebral arteries and proximal subclavian arteries bilaterally. The degree of stenosis is determined by criteria similar to NASCET. FINDINGS: Right Side: 1. There is moderate atherosclerotic plaque seen in the bifurcation/proximal ICA region. 2. The common carotid artery PSV proximally is 117 cm/s and distally 91 cm/s. 3. The proximal internal carotid artery velocities are 94 cm/s systolic and 17 cm/s diastolic. 4. The proximal external carotid artery PSV is 138 cm/s. 5. The vertebral artery shows antegrade flow. 6. The subclavian artery waveforms are normal. Left Side: 1. There is moderate atherosclerotic plaque seen in the bifurcation/proximal ICA region. 2. The common carotid artery PSV proximally is 122 cm/s and distally 93 cm/s. 3. The proximal internal carotid artery velocities are 119 cm/s systolic and 36 cm/s diastolic. 4. The proximal external carotid artery PSV is 136 cm/s. 5. The vertebral artery shows antegrade flow. 6. The subclavian artery waveforms are normal. US/US carotid duplex BI IMPRESSION: 1. RIGHT: Minimal, non-hemodynamically significant stenosis of the proximal right internal carotid artery corresponding to a 0-49% stenosis by velocity criteria. 2. LEFT: Minimal, non-hemodynamically significant stenosis of the proximal left internal carotid artery corresponding to a 0-49% stenosis by velocity criteria. Electronically signed by: Cinda Navarro MD 06/20/2024 06:20 PM [facility]
== END 2024-06-13 13:50 | disposition home or self-care (01) ==
LOC: HO.US 13:49
PROVIDERS: PCP Family Medicine; Visit Provider Family Medicine
DX: R09.89 Other specified symptoms and signs involving the circulatory and respiratory systems (principal)
CPT/HCPCS: 93880

== ENCOUNTER 2024-09-05 10:25 | Outpatient (AMB) | payer MEDICARE, SELFPAY ==
--- NOTE | 2024-09-05 10:43 | MHC.PC.OV ---
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 broccoli Allergy (Mild, Uncoded 11/15/23 12:03) congestion cats Allergy (Mild, Uncoded 11/15/23 12:03) Swelling dogs Allergy (Mild, Uncoded 11/15/23 12:03) Swelling chemicals Adverse Reaction (Uncoded 11/15/23 12:03) Unknown Medication List - Last Reconciled 09/05/24 by Barry Young MD atorvastatin 40 mg PO DAILY 90 days blood sugar diagnostic ([employer] Verio test strips) 2 times a day As directed, 90 days glipizide ER 5 mg PO DAILY 90 days ipratropium bromide 2 sprays intranasal TID 30 days lancets ([employer] Delica Safety Lancet) 2 times a day As directed, 90 days lisinopril 30 mg PO DAILY 90 days metformin ER 500 mg PO BID 90 days Tobacco use date assessed: 11/15/23 Dental Screening Dental Screen Date: 08/03/23 HPI f/u HTN, diabetes HPI Details 79 y/o female presents to f/u HTN, DM. A1c today 7.6%. She is on glipizide 5mg, metformin 500mg b.i.d. Blood pressure today 160/78, 85p. She is on lisinpril 30mg daily. Hx of white coat syndrome and notes her blood pressure at home are controlled. [facility] Surgical History History of appendectomy History of cataract surgery Family History Sister Kidney failure Social History Housing: Apartment Patient Tobacco Use Status: Never used Tobacco e-Cigarette/Vaping Use: Never Used service: No Current occupational status: retired Current occupational exposures/hazards: No Cognitive needs: No Hearing needs: No Vision needs: No Questionnaire PHQ-9 Over the last 2 weeks, how often have you been bothered by any of the following problems? 1. Little interest or pleasure in doing things: not at all 2. Feeling down, depressed, or hopeless: not at all 3. Trouble falling or staying asleep, or sleeping too much: not at all 4. Feeling tired or having little energy: not at all 5. Poor appetite or overeating: not at all 6. Feeling bad about yourself - or that you are a failure or have let yourself or your family down: not at all 7. Trouble concentrating on things, such as reading the newspaper or watching television: not at all 8. Moving or speaking so slowly that other people could have noticed. Or the opposite - being so fidgety or restless that you have been moving around a lot more than usual: not at all 9. Thoughts that you would be better off or of hurting yourself in some way: not at all Total score: 0 Source: Developed by Drs. Kris Arellano, Ana Yusuf, Maciej Haddad and colleagues, with an educational annette from [employer]. Thrive Questionnaire Date Thrive assessed: 08/29/24 I am a: Patient What is your living situation today?: I have a steady place to live Within the past 12 months, did the food you bought not last and you didn't have the money to get more?: I choose not to answer this question Within the past 12 months, did you worry whether your food would run out before you got money to buy more?: Never true Do you have trouble paying for medicines?: No Do you have trouble getting transportation to medical appointments?: No Do you have trouble paying your heating and electricity bill?: No Do you have trouble taking care of your child, family member or friend?: No Do you have trouble with day-to-day activities such as bathing, preparing meals, shopping, managing finances, etc.?: No Are you currently unemployed and looking for a job?: No Are you interested in more education?: No Please select the resources that you would like help with: None Currently or been in a relationship where the following occur: No concerns reported THRIVE Score: 0 AUDIT C Alcohol Use Questionnaire (AUDIT-C) 1. How often do you have a drink containing alcohol?: Never Total Score: 0 JULIETH-7 AMB Questionnaire JULIETH-7 Date JULIETH - 7 assessed: 08/03/23 Feeling nervous, anxious, or on edge: 0 = Not at all Not being able to stop or control worryin = Not at all Worrying too much about different things: 0 = Not at all Trouble relaxin = Not at all Being so restless that it is hard to sit still: 0 = Not at all Becoming easily annoyed or irritable: 0 = Not at all Feeling afraid as if something awful might happen: 0 = Not at all Total JULIETH-7 score (0-4 normal; 5-9 mild; 10-14 moderate; 15-21 severe): 0 Source: Developed by Drs. Kris Arellano, Ana Yusuf, Maciej Haddad and colleagues, with an educational annette from [employer]. Review of Systems Const Denies chills, Denies fatigue, Denies fever(s), Denies headache(s) and Denies weakness ENT Denies dizziness and Denies headache(s) Card Denies chest pain, Denies lightheadedness, Denies dyspnea and Denies other (Palpitations) Resp Denies cough, Denies dyspnea, Denies wheezing and Denies other ( shortness of breath) Musc Denies numbness and Denies tingling Neuro Denies dizziness, Denies headache(s), Denies numbness, Denies tingling, Denies paresthesias and Denies weakness Psych Denies anxiety and Denies depression Endo Denies fatigue Aller/Immun Denies wheezing Physical exam (Primary Care) Vital Signs: Last Vital Signs Temp 98 F 09/05/24 10:56 Pulse 85 09/05/24 10:56 Resp 16 09/05/24 10:56 BP 160/78 H 09/05/24 10:56 Pulse Ox 97 09/05/24 10:56 Oxygen Delivery Method Room Air 09/05/24 10:56 BMI result Body Mass Index 22.7 Tobacco/Smoking Status: Tobacco use Status Tobacco use date assessed 11/15/23 09/05/24 10:45 Patient Tobacco Use Status Never used Tobacco 09/05/24 10:45 e-Cigarette/Vaping Use Never Used 09/05/24 10:45 PHQ-9: PHQ-9 Score PHQ-9: Total score 0 09/05/24 11:37 Thrive Assessment: Date of Thrive Assessment Date Thrive assessed 08/29/24 09/05/24 10:45 Currently or been in a relationship where the following occur: No concerns reported Const General: no acute distress and well developed Nutritional Appearance: well nourished Orientation/consciousness: patient oriented x3 HENMT Head: Yes normocephalic and Yes atraumatic Eyes General: appearance normal, both eyes and all related structures Pupils: Equal, round and reactive pupils present EOM: EOMs intact bilaterally Resp Effort & Inspection: normal respiratory effort Auscultation: clear to auscultation bilaterally Cardio Rate: regular rate Rhythm: regular rhythm Heart sounds: S1 normal heart sound present, S2 normal heart sound present, no gallops, no murmurs and no rubs Neuro General: patient oriented x3 and gait normal Cranial nerves: Yes Equal, round and reactive pupils present Psych Affect: normal affect Results AMB Hemoglobin A1c AMB Hemoglobin A1c 7.6 % Last Edit by Saima Beebe CMA on 09/05/24 11:09 Results Reviewed Results Reviewed: Laboratory Last Values Hgb A1c (Clinic) 7.6 % (4.0-6.0) H 09/05/24 11:07 Coding Level of Care Code Est Pt Level 3 (06531) Diagnoses Diabetes E11.9 White coat syndrome with diagnosis of hypertension I10 Hypertension I10 Assessment & Plan Assessment & Plan (1) Diabetes: Code(s): E11.9 - Type 2 diabetes mellitus without complications Category: Medical (2) White coat syndrome with diagnosis of hypertension: Code(s): I10 - Essential (primary) hypertension Category: Medical (3) Hypertension: Code(s): I10 - Essential (primary) hypertension Category: Medical Plan Blood?pressure?is?in?the?office?are?high?but?patient?has?white?coat?syndrome.??Her?blood?pressures?taken?at?home?and?displayed?in?her?log?today?show?good?control?with?typical?blood?pressures?around?120/70. Good?control.??Goal?is?less?than?140/90 Continue?current?medication Continue?monitoring?at?home?and?any?problems A1c?climbed?again?to?7.6%. Increased?metformin?from?500?mg?b.i.d.?to?500?mg?in?the?morning?and?750?in?the?evening. She?will?continue?glipizide ER?5?mg?daily?and?she?takes?this?around?3PM. Advised?she?not?take?this?to?close?bedtime. Orders: Orders AMB Hemoglobin A1c Today E11.9 - Type 2 diabetes mellitus without complications Medications: Changed From metformin ER 500 mg PO BID 90 days 180 tabs 3RF To metformin ER 500 mg AM and 750mg PM orally 2 times a day; 180 tabs 3RF 90 days
[2024-09-05 10:56] VITALS: BP 160/78; PULSE 85; RESP 16; TEMP 36.6; O2SAT 97; BMI 22.7
--- OUTSIDE RECORDS SUMMARY | 2024-09-05 12:07 | XMS_ITS | Continuity of Care Document ---
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 [address] [place] [address], [id number], [place]. tel:[phone] [facility], [address] [place] [address], [id number], [place] tel:[phone] [place] cataract eval (chief complaint) Type 2 diabetes mellitus without complicationsAg e-related nuclear cataract, bilateral Celeste OD Maroi. [address] [place] [address], [id number], [place]. tel:[phone] Referring Provider: My Russell, [address] [place] [address], [address] . tel:[phone] [facility], [address] [place] [address], [id number], [place] tel:[phone] [place] cataract evaluation (chief complaint) Age-related nuclear cataract, bilateralType 2 diabetes mellitus without complications Anushkasssandra OD Mario. [address] [place] [address], [id number], [place]. tel:[phone] Referring Provider: My Russell, [address], [place], [address] . tel:[phone] [facility], [address] [place] [address], [id number], [place] tel:[phone] [place] diabetic eye exam (chief complaint) No Information Jigna Pepe. [address], [place], [place], [id number], [place]. tel:[phone] Referring Provider: My Russell, [address], [place], [address] . tel:[phone] [facility], [address] [place] [address], [id number], [place] tel:[phone] [place] diabetic eye exam (chief complaint)Re fraction (chief complaint) No Information Jigna Pepe. [address] [place], [id number], [place]. tel:[phone] Referring Provider: My Russell, [address], [place], [address] . tel:[phone] [facility], [address] [place] [address], [id number], [place] tel:[phone] [place] diabetic eye exam (chief complaint) No Information Jigna Pepe. [address] [place], [id number], [place]. tel:[phone] Referring Provider: My Russell, [address], [place], [address] . tel:[phone] [facility], [address] [place] [address], [id number], [place] tel:[phone] [place] No Information Jigna Pepe. [address] [place], [id number], [place]. tel:[phone] Referring Provider: My Russell, [address], [place], [address] . tel:[phone] [facility], [address] [place] [address], [id number], [place] tel:[phone] [place] No Information Rudolph Arreola. [address] [place] [address], [id number], [place]. tel:[phone] Referring Provider: Maxwell Zambrano, [address] [place] [address], [address] . tel:[phone] [facility], [address] [place] [address], [id number], [place] tel:[phone] [place] No Information Rudolph Arreola. [address] [place] [address], [id number], [place]. tel:[phone] Referring Provider: Maxwell Zambrano, [address] [place] [address], [address] . tel:[phone] [facility], [address] [place] [address], [id number], [place] tel:[phone] [place] No Information Rudolph Arreola. [address] [place] [address], [id number], [place]. tel:[phone] Referring Provider: Maxwell Zambrano, [address] [place] [address], [address] . tel:[phone] [facility], [address] [place] [address], [id number], [place] tel:[phone] [place] No Information Rudolph Arreola. [address] [place] [address], [id number], [place]. tel:[phone] Referring Provider: Maxwell Zambrano, [address] [place] [address], [address] . tel:[phone] [facility], [address] [place] [address], [id number], [place] tel:[phone] [place] No Information Celeste Quintanilla. [address] [place] [address], [id number], [place]. tel:[phone] Referring Provider: Dwight Quintero, [address] [place] [address], [address] . tel:[phone] [facility], [address] [place] [address], [id number], [place] tel:[phone] [place] No Information Rudolph Arreola. [address] [place] [address], [id number], [place]. tel:[phone] Referring Provider: Maxwell Zambrano, [address] [place] [address], [address] . tel:[phone] [facility], [address] [place] [address], [id number], [place] tel:[phone] [place] No Information Rudolph Arreola. [address] [place] [address], [id number], [place]. tel:[phone] Referring Provider: Maxwell Zambrano, [address] [place] [address], [address] . tel:[phone] [facility], [address] [place] [address], [id number], [place] tel:[phone] Luke No Information Rudolph Arreola. [address] [place] [address], [id number], [place]. tel:[phone] Referring Provider: Maxwell Zambrano, [address] [place] [address], [address] . tel:[phone] [facility], [address] [place] [address], [id number], [place] tel:[phone] [place] No Information Rudolph Arreola. [address] [place] [address], [id number], [place]. tel:[phone] Referring Provider: Maxwell Zambrano, [address] [place] [address], [address] . tel:[phone] [facility], [address] [place] [address], [id number], [place] tel:[phone] [place] No Information Rudolph Arreola. [address] [place] [address], [id number], [place]. tel:[phone] Referring Provider: Maxwell Zambrano, [address] [place] [address], [address] . tel:[phone] [facility], [address] [place] [address], [id number], [place] tel:[phone] [place] No Information Rudolph Arreola. [address] [place] [address], [id number], [place]. tel:[phone] Referring Provider: Maxwell Zambrano, [address] [place] [address], [address] . tel:[phone] [facility], [address] [place] [address], [id number], [place] tel:[phone] [place] No Information Celeste Quintanilla. [address] [place] [address], [id number], [place]. tel:[phone] Referring Provider: Dwight Quintero, [address] [place] [address], [address] . tel:[phone] [facility], [address] [place] [address], [id number], [place] tel:[phone] [place] No Information Rudolph Arreola. [address] [place] [address], [id number], [place]. tel:[phone] Referring Provider: Maxwell Zambrano, [address] [place] [address], [address] . tel:[phone] [facility], [address] [place] [address], [id number], [place] tel:[phone] [place] No Information Rudolph Arreola. [address] [place] [address], [id number], [place]. tel:[phone] Referring Provider: Maxwell Zambrano, [address] [place] [address], [address] . tel:[phone] [facility], [address] [place] [address], [id number], [place] tel:[phone] [place] No Information Rudolph Arreola. [address] [place] [address], [id number], [place]. tel:[phone] Referring Provider: Maxwell Zambrano, [address] [place] [address], [address] . tel:[phone] [facility], [address] [place] [address], [id number], [place] tel:[phone] [place] No Information Celeste RAMESH Dwight. [address] [place] [address], [id number], [place]. tel:[phone] Referring Provider: Dwight Quintero, [address] [place] [address], [address] . tel:[phone] [facility], [address] [place] [address], [id number], [place] tel:[phone] [place] No Information Celeste Quintanilla. [address] [place] [address], [id number], [place]. tel:[phone] Referring Provider: Dwight Quintero, [address] [place] [address], [address] . tel:[phone] [facility], [address] [place] [address], [id number], [place] tel:[phone] [place] No Information Celeste Mahajann. [address] [place] [address], [id number], [place]. tel:[phone] Referring Provider: Dwight Alonso OD N, [address] [place], [address] . tel:[phone] Family History Family Member Type Diagnosis Age At Onset Father Problem (finding) Family history unknown Payers Payer name Insurance type Covered democrat ID Authoriza tion(s) Medicare [employer] [id number] Aetna M/c Supplemental Claims CI [id number] Social History Type Description Quantity Date Captured [...] FBS this am 118; HgbA1C 6.5%.Dr. Cintron, [place] Refraction Pt currently wea rs cl's, Proclear [...] mths ago and has an appt in [facility] for more blood work. Functional [...]
== END 2024-09-05 11:53 | disposition home or self-care (01) ==
PROVIDERS: PCP Family Medicine; Visit Provider Family Medicine
DX: E11.9 Type 2 diabetes mellitus without complications (principal); I10 Essential (primary) hypertension

== ENCOUNTER → 2024-09-05 10:25 | Outpatient (BNVA) | payer MEDICARE, SELFPAY | PROVIDERS: PCP Family Medicine; Visit Provider Family Medicine | DX: E11.9 Type 2 diabetes mellitus without complications (principal); I10 Essential (primary) hypertension | CPT/HCPCS: 83036; 99212 ==

== ENCOUNTER 2024-12-05 10:33 | Outpatient (AMB) | payer MEDICARE, SELFPAY ==
--- OUTSIDE RECORDS SUMMARY | 2024-12-05 10:59 | XMS_ITS | Continuity of Care Document ---
Author Organization [facility] Address [address] [place] [address] Phone Care Team Providers Care Rat Farmer Name Role Phone My Benito MD Unavailable [...] Provider Providers Copied on Encounter [facility], [address] [place] [address], [id number], [place] tel:[phone] Luke No Information Jigna Pepe. [address] [place] [address], [id number], [place]. tel:[phone] [facility], [address] [place] [address], [id number], [place] tel:[phone] [place] cataract eval (chief complaint) Type 2 diabetes mellitus without complicationsAg e-related nuclear cataract, bilateral Celeste OD Mario. [address] [place] [address], [id number], [place]. tel:[phone] Referring Provider: My Russell, [address] [place] [address], [address] . tel:[phone] [facility], [address] [place] [address], [id number], [place] tel:[phone] [place] cataract evaluation (chief complaint) Age-related nuclear cataract, bilateralType 2 diabetes mellitus without complications Anushkasssandra OD Mario. [address] [place] [address], [id number], [place]. tel:[phone] Referring Provider: My Russell, [address], [place], [address] . tel:[phone] [facility], [address] [place] [address], [id number], [place] tel:[phone] [place] diabetic eye exam (chief complaint) No Information Jigna Pepe. [address], [place], [place], [id number], [place]. tel:[phone] Referring Provider: My Russell, [address], [place], [address] . tel:[phone] [facility] [place], [address] [place] [address], [id number], [place] tel:[phone] [place] diabetic eye exam (chief complaint)Re fraction (chief complaint) No Information Jigna Pepe. [address], [id number], [place]. tel:[phone] Referring Provider: My Russell, [address], [place], [address] . tel:[phone] [facility], [address] [place] [address], [id number], [place] tel:[phone] [place] diabetic eye exam (chief complaint) No Information Jigna Pepe. [address], [id number], [place]. tel:[phone] Referring Provider: My Russell, [address], [place], [address] . tel:[phone] [facility], [address] [place] [address], [id number], [place] tel:[phone] [place] No Information Jigna Pepe. [address], [id number], [place]. tel:[phone] Referring Provider: My Russell, [address], [place], [address] . tel:[phone] [facility], [address] [place] [address], [id number], [place] tel:[phone] [place] No Information Rudolph Arreola. [address] [place] [address], [id number], [place]. tel:[phone] Referring Provider: Maxwell Zambrano, [address] [place] [address], [address] . tel:[phone] [facility], [address] [place] [address], [id number], [place] tel:[phone] [place] No Information Rudolph Arreola. [address] [place] [address], [id number], [place]. tel:[phone] Referring Provider: Maxwell Zambrano, [address] [place] [address], [address] . tel:[phone] [facility], [address] [place] [address], [id number], [place] tel:[phone] [place] No Information Rudolph Arreola. [address] [place] [address], [id number], [place]. tel:[phone] Referring Provider: Maxwell Zambrano, [address] [place] [address], [address] . tel:[phone] [facility], [address] [place] [address], [id number], [place] tel:[phone] [place] No Information Rudolph Arreola. [address] [place] [address], [id number], [place]. tel:[phone] Referring Provider: Maxwell Zambrano, [address] [place] [address], [address] . tel:[phone] [facility], [address] [place] [address], [id number], [place] tel:[phone] [place] No Information Celeste Quintanilla. [address] [place] [address], [id number], [place]. tel:[phone] Referring Provider: Dwight Quintero, [address] [place] [address], [address] . tel:[phone] [facility], [address] [place] [address], [id number], [place] tel:[phone] [place] No Information Rudolph Arreola. [address] [place] [address], [id number], [place]. tel:[phone] Referring Provider: Maxwell Zambrano, [address] [place] [address], [address] . tel:[phone] [facility], [address] [place] [address], [id number], [place] tel:[phone] [place] No Information Rudolph Arreola. [address] [place] [address], [id number], [place]. tel:[phone] Referring Provider: Maxwell Zambrano, [address] [place] [address], [address] . tel:[phone] [facility], [address] [place] [address], [id number], [place] tel:[phone] [place] No Information Rudolph Arreola. [address] [place] [address], [id number], [place]. tel:[phone] Referring Provider: Maxwell Zambrano, [address] [place] [address], [address] . tel:[phone] [facility], [address] [place] [address], [id number], [place] tel:[phone] [place] No Information Rudolph Arreola. [address] [place] [address], [id number], [place]. tel:[phone] Referring Provider: Maxwell Zambrano, [address] [place] [address], [address] . tel:[phone] [facility], [address] [place] [address], [id number], [place] tel:[phone] [place] No Information Rudolph Arreola. [address] [place] [address], [id number], [place]. tel:[phone] Referring Provider: Maxwell Zambrano, [address] [place] [address], [address] . tel:[phone] [facility], [address] [place] [address], [id number], [place] tel:[phone] [place] No Information Rudolph Arreola. [address] [place] [address], [id number], [place]. tel:[phone] Referring Provider: Maxwell Zambrano, [address] [place] [address], [address] . tel:[phone] [facility], [address] [place] [address], [id number], [place] tel:[phone] [place] No Information Celeste Quintanilla. [address] [place] [address], [id number], [place]. tel:[phone] Referring Provider: Dwight Quintero, [address] [place] [address], [address] . tel:[phone] [facility], [address] [place] [address], [id number], [place] tel:[phone] [place] No Information Rudolph Arreola. [address] [place] [address], [id number], [place]. tel:[phone] Referring Provider: Maxwell Zambrano, [address] [place] [address], [address] . tel:[phone] [facility], [address] [place] [address], [id number], [place] tel:[phone] [place] No Information Rudolph Arreola. [address] [place] [address], [id number], [place]. tel:[phone] Referring Provider: Maxwell Zambrano, [address] [place] [address], [address] . tel:[phone] [facility], [address] [place] [address], [id number], [place] tel:[phone] [place] No Information Rudolph Arreola. [address] [place] [address], [id number], [place]. tel:[phone] Referring Provider: Maxwell Zambrano, [address] [place] [address], [address] . tel:[phone] [facility], [address] [place] [address], [id number], [place] tel:[phone] [place] No Information Celeste RAMESH Dwight. [address] [place] [address], [id number], [place]. tel:[phone] Referring Provider: Dwight Quintero, [address] [place] [address], [address] . tel:[phone] [facility], [address] [place] [address], [id number], [place] tel:[phone] [place] No Information Celeste Quintanilla. [address] [place] [address], [id number], [place]. tel:[phone] Referring Provider: Dwight Quintero, [address] [place] [address], [address] . tel:[phone] [facility], [address] [place] [address], [id number], [place] tel:[phone] [place] No Information Celeste Mahajann. [address] [place] [address], [id number], [place]. tel:[phone] Referring Provider: Dwight Alonso OD N, [address] [place], [address] . tel:[phone] Family History Family Member Type Diagnosis Age At Onset Father Problem (finding) Family history unknown Payers Payer name Insurance type Covered republican ID Authoriza tion(s) Medicare [place] [employer] [id number] Aetna M/c Supplemental Claims CI [id number] Social History Type Description Quantity Date Captured [...] FBS this am 118; HgbA1C 6.5%.Dr. Cintron, [place] Refraction Pt currently wea rs cl's, Proclear [...] mths ago and has an appt in [facility] for more blood work. Functional Status [...] Return i n 1 year with My Bneito MD for Complete Exam. Related to Type [...]
--- NOTE | 2024-12-05 11:17 | A.OFFPC_ITS ---
Vital Signs 12/05/24 11:26 12/05/24 11:31 Height 4 ft 11 in Weight 111 lb 2 oz BMI 22.4 BP 160/78 H 156/80 H Blood Pressure Location Lt brachial Lt brachial Position Sitting Sitting Respiration 16 Pulse 94 Pulse Source Pulse Oximeter Temp 97.7 F Temp Source Oral Pulse Oximetry (%) 99 Oxygen Delivery Method Room Air Intake Visit Reasons: f/u diabetes, HTN Intake Note: patient is scheduled for diabetes follow-up patient is experencing some seasonal allgery causing some irraction and itchy in throat, eyes iration as well and need medication to clear up Allergies Seasonal Allergies Allergy (Mild, Verified 12/05/24 11:24) allergies nitrofurantoin [From Macrobid] Adverse Reaction (Mild, Verified 12/05/24 11:24) headache, stomach ache. broccoli Allergy (Mild, Uncoded 12/05/24 11:24) congestion cats Allergy (Mild, Uncoded 12/05/24 11:24) Swelling dogs Allergy (Mild, Uncoded 12/05/24 11:24) Swelling chemicals Adverse Reaction (Uncoded 12/05/24 11:24) Unknown Medication List - Last Reconciled 12/05/24 by Barry Young MD atorvastatin 40 mg PO DAILY 90 days blood sugar diagnostic ([employer] Verio test strips) 2 times a day As directed, 90 days glipizide ER 5 mg PO DAILY 90 days ipratropium bromide 2 sprays intranasal TID 30 days lancets ([employer] Delica Safety Lancet) 2 times a day As directed, 90 days lisinopril 30 mg PO DAILY 90 days metformin ER 500 mg AM and 750mg PM orally 2 times a day; 90 days Tobacco use date assessed: 12/05/24 Fall risk assessment: No Falls in past year Dental Screening Dental Screen Date: 12/05/24 Did you have a dental visit in the last 12 months?: Yes Did you have a dental problem in the last 6 months where you did not have access to dental care?: No Was dental information given to patient?: No HPI f/u diabetes, HTN HPI Details 79 y/o female presents to f/u diabetes, HTN with white coat syndrome. Last A1c 09/05/24 7.6%. Had increased metformin from 500mg b.i.d. to 500mg in the morning and 750mg in the evening. A1c today 5/29/25 is 7.5%. BP today 156/80, 94p. Pt notes systolic pressures in the 120s/70s at home. She is on lisinopril 30mg. She notes she is having issues with allergies. HPI Comments History of Present Illness Details Documentation assistance for Barry Young MD, was provided by Trae Caputo,? [employer] on 12/05/2024 at 11:37 AM EST. I, Dr. Young, have read, observed, and verified documentation. ?? [facility] Surgical History History of appendectomy History of cataract surgery Family History Sister Kidney failure Social History Housing: Apartment Patient Tobacco Use Status: Never used Tobacco e-Cigarette/Vaping Use: Never Used service: No Current occupational status: retired Current occupational exposures/hazards: No Cognitive needs: No Hearing needs: No Vision needs: No Questionnaire Thrive Questionnaire Date Thrive assessed: 12/05/24 I am a: Patient What is your living situation today?: I have a steady place to live Within the past 12 months, did the food you bought not last and you didn't have the money to get more?: I choose not to answer this question Within the past 12 months, did you worry whether your food would run out before you got money to buy more?: Never true Do you have trouble paying for medicines?: No Do you have trouble getting transportation to medical appointments?: No Do you have trouble paying your heating and electricity bill?: No Do you have trouble taking care of your child, family member or friend?: No Do you have trouble with day-to-day activities such as bathing, preparing meals, shopping, managing finances, etc.?: No Are you currently unemployed and looking for a job?: No Are you interested in more education?: No Please select the resources that you would like help with: None Currently or been in a relationship where the following occur: No concerns reported THRIVE Score: 0 JULIETH-7 AMB Questionnaire JULIETH-7 Date JULIETH - 7 assessed: 08/03/23 Source: Developed by Drs. rKis Arellano, Ana Yusuf, Maciej Haddad and colleagues, with an educational annette from [employer]. Review of Systems Const Denies chills, Denies fatigue, Denies fever(s), Denies headache(s) and Denies weakness ENT Denies dizziness and Denies headache(s) Card Denies dyspnea Resp Denies cough, Denies dyspnea, Denies wheezing and Denies other (shortness of breath) Musc Denies numbness and Denies tingling Neuro Denies dizziness, Denies headache(s), Denies numbness, Denies tingling and Denies weakness Psych Denies anxiety and Denies depression Endo Denies fatigue Aller/Immun Denies wheezing Physical exam (Primary Care) Vital Signs: Last Vital Signs Temp 97.7 F 12/05/24 11:26 Pulse 94 12/05/24 11:26 Resp 16 12/05/24 11:26 BP 156/80 H 12/05/24 11:31 Pulse Ox 99 12/05/24 11:26 Oxygen Delivery Method Room Air 12/05/24 11:26 BMI result Body Mass Index 22.4 Tobacco/Smoking Status: Tobacco use Status Tobacco use date assessed 12/05/24 12/05/24 11:31 Patient Tobacco Use Status Never used Tobacco 12/05/24 11:18 e-Cigarette/Vaping Use Never Used 12/05/24 11:18 Thrive Assessment: Date of Thrive Assessment Date Thrive assessed 12/05/24 12/05/24 11:31 Currently or been in a relationship where the following occur: No concerns reported Const General: well developed; No acute distress Nutritional Appearance: well nourished Orientation/consciousness: patient oriented x3 HENMT Head: Yes normocephalic and Yes atraumatic Eyes General: appearance normal, both eyes and all related structures Pupils: Equal, round and reactive pupils present EOM: EOMs intact bilaterally Resp Effort & Inspection: normal respiratory effort Neuro General: patient oriented x3 and gait normal Cranial nerves: Yes Equal, round and reactive pupils present Psych Affect: normal affect Results Reviewed Results Reviewed: Laboratory Last Values Hgb A1c (Clinic) 7.5 % (4.0-6.0) H 12/05/24 13:36 Coding Level of Care Code Est Pt Level 5 (35702) Diagnoses Diabetes E11.9 White coat syndrome with diagnosis of hypertension I10 Allergies T78.40XA Sinusitis J32.9 Assessment & Plan Assessment & Plan (1) Diabetes: Code(s): E11.9 - Type 2 diabetes mellitus without complications Category: Medical Plan: A1c?now?7.5%,?down?from?7.6%?after?increasing?her?metformin.??She?continued?glip izide?as?prescribed.??Goal?is?less?than?7.0%. Poor?improvement?as?patient?is?adjusting?her?medication?regimen?and?eating?habit s?based?on?her?blood?sugar?testing She?worries?about?both?high?and?low?blood?sugars Will?ask?the?nurse?navigator?to?go?over?diet?and?medication?regimen. We?discussed?trying?Trulicity?which?has?a?long- term,?weekly?action?and?might?decrease?fluctuations?in?her?blood?sugars. We?will?consider?this?if?blood?sugar?not?improved?at?next?visit Would?also?refer?her?to?endocrinology. (2) White coat syndrome with diagnosis of hypertension: Code(s): I10 - Essential (primary) hypertension Category: Medical Plan: Blood?pressures?at?home?are?well?controlled.??Goal?is?less?than?140/90 Continue?current?medication?regimen (3) Allergies: Code(s): T78.40XA - Allergy, unspecified, initial encounter Category: Medical Plan: Allergies?and sinus?infection?with?ear?pressure?and?right?TM?perforation.??No?pus. She?has?Zyrtec?and?ipratropium?nasal?spray.??Will?give?her?a?steroid?nasal?spray Will?treat?underlying?sinus?infection-see?below (4) Sinusitis: Code(s): J32.9 - Chronic sinusitis, unspecified Category: Medical Plan: Start?amoxicillin Plan She?will?return?in?3?months?to?follow- up?hypertension?with?white?coat?syndrome?and?diabetes. A1c?remains?poorly?controlled?despite?adjustment?of?metformin. We?discussed?Tr ulicity?but?we?have?opted?to?have?her?follow-up?with?the?nurse?navigator?for?miguel bradshaw?teaching?1st.??If?she?is?still?having?difficulty,?will?try?Trulicity?and?a lso?refer?her?to?endocrinology.??See?a/P Orders: Orders AMB Hemoglobin A1c 12/05/24 E11.9 - Type 2 diabetes mellitus without compli cations Referrals Nurse Navigator Referral E11.9 - Type 2 diabetes mellitus without complications Medications: New amoxicillin 500 mg PO Q12H 20 tabs 0RF 10 days mometasone 50 mcg/actuation administer into each nostril 2 sprays intranasal DAILY PRN 17 grams 3RF nasal congestion 30 days
[2024-12-05 11:26] VITALS: BP 160/78; PULSE 94; RESP 16; TEMP 36.5; O2SAT 99; BMI 22.4
[2024-12-05 11:31] VITALS: BP 156/80
== END 2024-12-05 11:59 | disposition home or self-care (01) ==
LOC: HO.HMCFM 10:33
PROVIDERS: PCP Family Medicine; Visit Provider Family Medicine
DX: E11.9 Type 2 diabetes mellitus without complications (principal)

== ENCOUNTER → 2024-12-05 10:33 | Outpatient (BNVA) | payer MEDICARE, SELFPAY | PROVIDERS: PCP Family Medicine; Visit Provider Family Medicine | DX: E11.9 Type 2 diabetes mellitus without complications (principal); I10 Essential (primary) hypertension; T78.40XA Allergy, unspecified, initial encounter; J32.9 Chronic sinusitis, unspecified; Z79.84 Long term (current) use of oral hypoglycemic drugs | CPT/HCPCS: 83036; 99212 ==

== ENCOUNTER 2025-01-22 11:37 | Outpatient (AMB) | payer MEDICARE, SELFPAY ==
--- OUTSIDE RECORDS SUMMARY | 2019-11-19 11:08 | XMS_ITS | Continuity of Care Document ---
Author Organization [facility] Address [address] [place] [address] Phone Care Team Providers Care Recovery Manager Name Role Phone yM Benito MD Unavailable Unavailable Allergies, Adverse Reactions, [...] Diagnoses Date Provider Providers Copied on Encounter [facility], [address] [place] [address], [id number], [place] tel:[phone] Luke No Information Jigna Pepe. [address] [place] [address], [id number], [place]. tel:[phone] [facility], [address] [place] [address], [id number], [place] tel:[phone] [place] cataract eval (chief complaint) Type 2 diabetes mellitus without complicationsAg e-related nuclear cataract, bilateral Celeste OD Mario. [address] [place] [address], [id number], [place]. tel:[phone] Referring Provider: My Russell, [address] [place] [address], [address] . tel:[phone] [facility] [place], [address] [place] [address], [id number], [place] tel:[phone] [place] cataract evaluation (chief complaint) Age-related nuclear cataract, bilateralType 2 diabetes mellitus without complications Anushkasssandra OD Mario. [address] [place] [address], [id number], [place]. tel:[phone] Referring Provider: My Russell, [address], [place], [address] . tel:[phone] [facility], [address] [place] [address], [id number], [place] tel:[phone] [place] diabetic eye exam (chief complaint) No Information Jigna Pepe. [address], [place], [place], [id number], [place]. tel:[phone] Referring Provider: My Russell, [address], [place], [address] . tel:[phone] [facility], [address] [place] [address], [id number], [place] tel:[phone] [place] diabetic eye exam (chief complaint)Re fraction (chief complaint) No Information Jigna Pepe. [address], [id number], [place]. tel:[phone] Referring Provider: My Russell, [address], [place], [address] . tel:[phone] [facility], [address] [place] [address], [id number], [place] tel:[phone] [place] diabetic eye exam (chief complaint) No Information Jigna Pepe. [address] [place], [id number], [place]. tel:[phone] Referring Provider: My Russell, [address], [place], [address] . tel:[phone] [facility], [address] [place] [address], [id number], [place] tel:[phone] [place] No Information Jigna Pepe. [address] [place], [id number], [place]. tel:[phone] Referring Provider: My Russell, [address], [place], [address] . tel:[phone] [facility], [address] [place] [address], [id number], [place] tel:[phone] [place] No Information Rudolph Arreola. [address] [place] [address], [id number], [place]. tel:[phone] Referring Provider: Maxwell Zambrano, [address] [place] [address], [address] . tel:[phone] [facility], [address] [place] [address], [id number], [place] tel:[phone] [place] No Information Rudolph Arreola. [address] [place] [address], [id number], [place]. tel:[phone] Referring Provider: Maxwell Zambrano, [address] [place] [address], [address] . tel:[phone] [facility], [address] [place] [address], [id number], [place] tel:[phone] [place] No Information Rudolph Arreola. [address] [place] [address], [id number], [place]. tel:[phone] Referring Provider: Maxwell Zambrano, [address] [place] [address], [address] . tel:[phone] [facility], [address] [place] [address], [id number], [place] tel:[phone] [place] No Information Rudolph Arreola. [address] [place] [address], [id number], [place]. tel:[phone] Referring Provider: Maxwell Zambrano, [address] [place] [address], [address] . tel:[phone] [facility], [address] [place] [address], [id number], [place] tel:[phone] [place] No Information Celeste Quintanilla. [address] [place] [address], [id number], [place]. tel:[phone] Referring Provider: Dwight Quintero, [address] [place] [address], [address] . tel:[phone] [facility], [address] [place] [address], [id number], [place] tel:[phone] [place] No Information Rudolph Arreola. [address] [place] [address], [id number], [place]. tel:[phone] Referring Provider: Maxwell Zambrano, [address] [place] [address], [address] . tel:[phone] [facility], [address] [place] [address], [id number], [place] tel:[phone] [place] No Information Rudolph Arreola. [address] [place] [address], [id number], [place]. tel:[phone] Referring Provider: Maxwell Zambrano, [address] [place] [address], [address] . tel:[phone] [facility], [address] [place] [address], [id number], [place] tel:[phone] [place] No Information Rudolph Arreola. [address] [place] [address], [id number], [place]. tel:[phone] Referring Provider: Maxwell Zambrano, [address] [place] [address], [address] . tel:[phone] [facility], [address] [place] [address], [id number], [place] tel:[phone] [place] No Information Rudolph Arreola. [address] [place] [address], [id number], [place]. tel:[phone] Referring Provider: Maxwell Zambrano, [address] [place] [address], [address] . tel:[phone] [facility], [address] [place] [address], [id number], [place] tel:[phone] [place] No Information Rudolph Arreoal. [address] [place] [address], [id number], [place]. tel:[phone] Referring Provider: Maxwell Zambrano, [address] [place] [address], [address] . tel:[phone] [facility], [address] [place] [address], [id number], [place] tel:[phone] [place] No Information Rudolph Arreola. [address] [place] [address], [id number], [place]. tel:[phone] Referring Provider: Maxwell Zambrano, [address] [place] [address], [address] . tel:[phone] [facility], [address] [place] [address], [id number], [place] tel:[phone] [place] No Information Celeste Quintanilla. [address] [place] [address], [id number], [place]. tel:[phone] Referring Provider: Dwight Quintero, [address] [place] [address], [address] . tel:[phone] [facility], [address] [place] [address], [id number], [place] tel:[phone] [place] No Information Rudolph Arreola. [address] [place] [address], [id number], [place]. tel:[phone] Referring Provider: Maxwell Zambrano, [address] [place] [address], [address] . tel:[phone] [facility], [address] [place] [address], [id number], [place] tel:[phone] [place] No Information Rudolph Arreola. [address] [place] [address], [id number], [place]. tel:[phone] Referring Provider: Maxwell Zambrano, [address] [place] [address], [address] . tel:[phone] [facility], [address] [place] [address], [id number], [place] tel:[phone] [place] No Information Rudolph Arreola. [address] [place] [address], [id number], [place]. tel:[phone] Referring Provider: Maxwell Zambrano, [address] [place] [address], [address] . tel:[phone] [facility], [address] [place] [address], [id number], [place] tel:[phone] [place] No Information Celeste RAMESH Dwight. [address] [place] [address], [id number], [place]. tel:[phone] Referring Provider: Dwight Quintero, [address] [place] [address], [address] . tel:[phone] [facility], [address] [place] [address], [id number], [place] tel:[phone] [place] No Information Celeste Quintanilla. [address] [place] [address], [id number], [place]. tel:[phone] Referring Provider: Dwight Quintero, [address] [place] [address], [address] . tel:[phone] [facility], [address] [place] [address], [id number], [place] tel:[phone] [place] No Information Celeste Mahajann. [address] [place] [address], [id number], [place]. tel:[phone] Referring Provider: Dwight Alonso OD N, [address] [place], [address] . tel:[phone] Family History Family Member Type Diagnosis Age At Onset Father Problem (finding) Family history unknown Payers Payer name Insurance type Covered alliance party ID Authoriza tion(s) Medicare [place] [employer] [id number] Aetna M/c Supplemental Claims CI [id number] Social History Type Description Quantity Date Captured [...] FBS this am 118; HgbA1C 6.5%.Dr. Cintron, [place] Refraction Pt currently wea rs cl's, Proclear [...] mths ago and has an appt [facility] for more blood work. Functional [...]
--- NOTE | 2025-01-22 11:53 | MHC.PC.OV ---
Vital Signs 01/22/25 12:02 Height 4 ft 11 in Weight 109 lb BMI 22.0 BP 120/80 Blood Pressure Location Rt brachial Position Sitting Respiration 14 Pulse 94 Pulse Source Pulse Oximeter Temp 98 F Temp Source Oral Pulse Oximetry (%) 98 Oxygen Delivery Method Room Air Intake Visit Reasons: CPE with f/u labs and health Dr. Bass pt. Intake Note: patient is scheduled for cpe [employer] Guide Required: No Allergies Seasonal Allergies Allergy (Mild, Verified 01/22/25 11:58) allergies nitrofurantoin (From Macrobid) Adverse Reaction (Mild, Verified 01/22/25 11:58) headache, stomach ache. broccoli Allergy (Mild, Uncoded 12/05/24 11:24) congestion cats Allergy (Mild, Uncoded 12/05/24 11:24) Swelling dogs Allergy (Mild, Uncoded 12/05/24 11:24) Swelling chemicals Adverse Reaction (Uncoded 12/05/24 11:24) Unknown Medication List - Last Reconciled 01/22/25 by Barry Young MD atorvastatin 40 mg PO DAILY 90 days blood sugar diagnostic ([employer] Verio test strips) 2 times a day As directed, 90 days glipizide ER 5 mg PO DAILY 90 days lancets ([employer] Delica Safety Lancet) 2 times a day As directed, 90 days lisinopril 30 mg PO DAILY 90 days metformin ER 500 mg AM and 750mg PM orally 2 times a day; 90 days mometasone 50 mcg/actuation 2 sprays intranasal DAILY PRN 30 days Tobacco use date assessed: 01/22/25 Fall risk assessment: No Falls in past year Last assessed Fall Risk: 01/22/25 Dental Screening Dental Screen Date: 01/22/25 Did you have a dental visit in the last 12 months?: Yes Did you have a dental problem in the last 6 months where you did not have access to dental care?: No Was dental information given to patient?: Patient has dentist HPI CPE with f/u labs and health Dr. Bass pt. HPI Details 79 y/o female presents for an extended exam with f/u labs and health maintenance. No recent CPE-labs to review. BP today 120/80, 94p. She is on lisinopril 30mg daily. Last A1c 12/05/24 7.5%. She is on metformin, glipizide 5mg daily. A1c today 01/22/25 is 7.3%. Up to date with her mammogram. Up to date with her bone density test. Cologuard test last year in December - up to date. HPI Comments History of Present Illness Details Documentation assistance for Barry Young MD, was provided by Trae Caputo,? Family Practice Physician on 01/22/2025 at 12:22 PM EST. I, Dr. Young, have read, observed, and verified documentation. [facility] Surgical History History of appendectomy History of cataract surgery Family History Sister Kidney failure Social History Housing: Apartment Patient Tobacco Use Status: Never used Tobacco e-Cigarette/Vaping Use: Never Used service: No Current occupational status: retired Current occupational exposures/hazards: No Cognitive needs: No Hearing needs: No Vision needs: No Questionnaire PHQ-9 Over the last 2 weeks, how often have you been bothered by any of the following problems? 1. Little interest or pleasure in doing things: not at all 2. Feeling down, depressed, or hopeless: not at all 3. Trouble falling or staying asleep, or sleeping too much: not at all 4. Feeling tired or having little energy: not at all 5. Poor appetite or overeating: not at all 6. Feeling bad about yourself - or that you are a failure or have let yourself or your family down: not at all 7. Trouble concentrating on things, such as reading the newspaper or watching television: not at all 8. Moving or speaking so slowly that other people could have noticed. Or the opposite - being so fidgety or restless that you have been moving around a lot more than usual: not at all 9. Thoughts that you would be better off or of hurting yourself in some way: not at all Total score: 0 Depression Screening Interpretation: Negative Depression Screening Done: Yes 32416 - PHQ-9 Billing: Yes Source: Developed by Drs. Kris Arellano, Maciej Hurdke and colleagues, with an educational annette from [employer]. Thrive Questionnaire Date Thrive assessed: 12/05/24 I am a: Patient What is your living situation today?: I have a steady place to live Within the past 12 months, did the food you bought not last and you didn't have the money to get more?: I choose not to answer this question Within the past 12 months, did you worry whether your food would run out before you got money to buy more?: Never true Do you have trouble paying for medicines?: No Do you have trouble getting transportation to medical appointments?: No Do you have trouble paying your heating and electricity bill?: No Do you have trouble taking care of your child, family member or friend?: No Do you have trouble with day-to-day activities such as bathing, preparing meals, shopping, managing finances, etc.?: No Are you currently unemployed and looking for a job?: No Are you interested in more education?: No Please select the resources that you would like help with: None Currently or been in a relationship where the following occur: No concerns reported THRIVE Score: 0 JULIETH-7 AMB Questionnaire JULIETH-7 Date JULIETH - 7 assessed: 01/22/25 Feeling nervous, anxious, or on edge: 0 = Not at all Not being able to stop or control worryin = Not at all Worrying too much about different things: 0 = Not at all Trouble relaxin = Not at all Being so restless that it is hard to sit still: 0 = Not at all Becoming easily annoyed or irritable: 0 = Not at all Feeling afraid as if something awful might happen: 0 = Not at all Total JULIETH-7 score (0-4 normal; 5-9 mild; 10-14 moderate; 15-21 severe): 0 Source: Developed by Drs. Kris Arellano, Maciej Hurd and colleagues, with an educational annette from [employer]. JULIETH-7 Assessment Billing JULIETH-7 Assessment Tool: JULIETH-7 Assessment 44798 Review of Systems Const Denies chills, Denies fatigue, Denies fever(s), Denies headache(s) and Denies weakness Eyes Denies change in vision ENT Denies dizziness, Denies headache(s), Denies hearing loss, Denies nasal congestion, Denies sinus pain, Denies sinus pressure and Denies sore throat Card Denies chest pain, Denies lightheadedness, Denies dyspnea and Denies other (palpitations) Resp Denies cough, Denies dyspnea and Denies wheezing GI Denies abdominal pain, Denies melena, Denies hematochezia, Denies change in bowel habits, Denies dyspepsia and Denies nausea Denies hematuria and Denies dysuria Musc Denies abnormal gait, Denies myalgias, Denies arthralgias, Denies numbness and Denies tingling Skin/Breast Denies rash, Denies unusual bruising and Denies wounds Neuro Denies abnormal gait, Denies dizziness, Denies headache(s), Denies memory loss, Denies numbness, Denies Sensory deficit (Neuro), Denies tingling and Denies weakness Psych Denies anxiety, Denies depression and Denies memory loss Endo Denies cold intolerance, Denies fatigue, Denies heat intolerance, Denies polydipsia and Denies polyuria Kenny/Lymph Denies easy bleeding and Denies easy bruising Aller/Immun Denies wheezing Physical exam (Primary Care) Vital Signs: Last Vital Signs Temp 98 F 01/22/25 12:02 Pulse 94 01/22/25 12:02 Resp 14 01/22/25 12:02 BP 120/80 01/22/25 12:02 Pulse Ox 98 01/22/25 12:02 Oxygen Delivery Method Room Air 01/22/25 12:02 BMI result Body Mass Index 22.0 Tobacco/Smoking Status: Tobacco use Status Tobacco use date assessed 01/22/25 01/22/25 12:05 Patient Tobacco Use Status Never used Tobacco 01/22/25 11:54 e-Cigarette/Vaping Use Never Used 01/22/25 11:54 PHQ-9: PHQ-9 Score PHQ-9: Total score 0 01/22/25 12:24 Depression Screening Interpretation: Negative Thrive Assessment: Date of Thrive Assessment Date Thrive assessed 12/05/24 01/22/25 11:54 Currently or been in a relationship where the following occur: No concerns reported Const General: no acute distress, well developed, alert and awake Nutritional Appearance: well nourished Orientation/consciousness: patient oriented x3 HENMT Head: Yes normocephalic and Yes atraumatic Ears: hearing grossly normal bilaterally and TM's normal bilaterally General nose exam: Normal external nose present and Normal nares present Mouth: Normal oral and palatal mucosa present and moist mucous membranes Teeth and gingiva: dentition normal Throat: Yes posterior oropharynx normal Eyes General: appearance normal, both eyes and all related structures Pupils: Equal, round and reactive pupils present and Pupil accommodation reflex normal EOM: EOMs intact bilaterally Neck Neck: Yes normal visual inspection, Yes no lymphadenopathy and Yes trachea midline Thyroid: Thyroid normal Carotids: no bruits Lymphatic: no lymphadenopathy noted Chest Chest palpation & inspection: normal inspection of the chest Resp Effort & Inspection: normal respiratory effort Auscultation: clear to auscultation bilaterally Cardio Rate: regular rate Rhythm: regular rhythm Heart sounds: S1 normal heart sound present, S2 normal heart sound present, no gallops, Murmur heart sound present and no rubs Bruits: no abdominal aortic bruits and no carotid bruits GI Palpation (GI): No Abdominal aortic bruit present, Soft to palpation, nontender, No hepatosplenomegaly present and No Rebound tenderness present Auscultation: normal bowel sounds General: Yes no CVA tenderness Back/Spine/Pelvis Back: no CVA tenderness Cervical Spine: cervical ROM normal and No Cervical spine tenderness Thoracic/Lumbar Spine: thoraco-lumbar ROM normal, No pain with thoraco-lumbar ROM, No thoracic spinal tenderness and No lumbar spinal tenderness Skin Lesions: no lesions Rashes: no rashes Trauma: no lacerations or abrasions Wounds: no wounds Nails: normal Neuro General: patient oriented x3 Cranial nerves: Yes Equal, round and reactive pupils present Cognition (Neuro): normal cognition Gait exam (Neuro): Normal gait present Motor exam (neuro): 5/5 motor strength present throughout Sensory Exam: No Sensory deficit (Neuro) Deep tendon reflexes (DTR's): Right patellar reflex intensity grade: 2+ and Left patellar reflex intensity grade: 2+ Extrem General: Yes normal to inspection and No edema Psych Appearance: grossly normal Affect: normal affect Attitude: cooperative Thought process: Normal thought process present Coding Level of Care Code Est Pt Level 5 (90279) Diagnoses Diabetes E11.9 White coat syndrome with diagnosis of hypertension I10 Screening for colon cancer Z12.11 Cardiac murmur R01.1 Immunization counseling Z71.85 Breast cancer screening by mammogram Z12.31 Screening for osteoporosis Z13.820 Adult general medical exam Z00.00 Additional Codes JULIETH-7 Assessment Billing - JULIETH-7 Assessment Tool: JULIETH-7 Assessment 47997 ([id number]) PHQ-9 - 65457 - PHQ-9 Billing: Yes ([id number]) Assessment & Plan Assessment & Plan (1) Diabetes: Code(s): E11.9 - Type 2 diabetes mellitus without complications Category: Medical Plan: Slowly but steadily improving. A1c has decreased again from 7.5% down to 7.3% with no change in her medications at last visit but she did get diabetic teaching. Continue current medication regimen Work on diabetic diet and consistency with medications Patient says she feels more confident with taking her medications as prescribed She has an appointment in March to follow-up diabetes. We discussed a goal of 7.0 or lower. (2) White coat syndrome with diagnosis of hypertension: Code(s): I10 - Essential (primary) hypertension Category: Medical Plan: Blood pressure today appears controlled. Continue current medication Goal is less than 140/90 (3) Screening for colon cancer: Code(s): Z12.11 - Encounter for screening for malignant neoplasm of colon Category: Medical Plan: Cologuard test in December 2023 was negative Will repeat in 2026 (4) Cardiac murmur: Code(s): R01.1 - Cardiac murmur, unspecified Category: Medical Plan: Stable (5) Immunization counseling: Code(s): Z71.85 - Encounter for immunization safety counseling Category: Medical Plan: Up-to-date with her Tdap and she says she is up-to-date with COVID shots She says she can not get flu shots Also recommended pneumonia, RSV and shingles. She says she will research these (6) Breast cancer screening by mammogram: Code(s): Z12.31 - Encounter for screening mammogram for malignant neoplasm of breast Category: Medical Plan: Patient had extra views in April No evidence of malignancy She will continue annual screening (7) Screening for osteoporosis: Code(s): Z13.820 - Encounter for screening for osteoporosis Category: Medical Plan: Bone density test in March 2024 showed osteoporosis She declined alendronate but is getting good sources of calcium and vitamin-D She goes to a gym and is performing weight-bearing exercises Will recheck in 2025 (8) Adult general medical exam: Code(s): Z00.00 - Encounter for general adult medical examination without abnormal findings Category: Medical Plan: 79-year-old female presents for an extended exam Encouraged healthy diet with active lifestyle and plenty of exercise Plan She will follow-up by telemedicine to review CPE-labs in a few weeks. She has an appointment in March to follow-up hypertension and diabetes. A1c continues to improve-see a/P Orders: Orders Comprehensive [place]. Panel Fast 01/21/25 Z00. - Encounter for general adult medical examination without abnormal findings Lipid Panel 01/21/25 Z. - Encounter for general adult medical examination without abnormal findings Microalbumin, Random (w Creat) 01/21/25 I10 - Essential (primary) hypertension TSH reflex Free T4 01/21/25 Z00.00 - Encounter for general adult medical examination without abnormal findings UA CC w/rflx Micro + Cult 01/21/25 Z00. - Encounter for general adult medical examination without abnormal findings MM tomosynthesis screening BI Today Z12.31 - Encounter for screening mammogram for malignant neoplasm of breast Complete Blood Count Auto Diff 01/21/25 Z00.00 - Encounter for general adult medical examination without abnormal findings Vitamin D 25-OH Total 01/21/25 E55.9 - Vitamin D deficiency, unspecified
[2025-01-22 12:02] VITALS: BP 120/80; PULSE 94; RESP 14; TEMP 36.6; O2SAT 98; BMI 22.0
== END 2025-01-22 12:52 | disposition home or self-care (01) ==
LOC: HO.HMCFM 11:38
PROVIDERS: PCP Family Medicine; Visit Provider Family Medicine
DX: Z00.00 Encounter for general adult medical examination without abnormal findings (principal); E11.9 Type 2 diabetes mellitus without complications; I10 Essential (primary) hypertension; Z12.11 Encounter for screening for malignant neoplasm of colon; R01.1 Cardiac murmur, unspecified; Z71.85 Encounter for immunization safety counseling; Z12.31 Encounter for screening mammogram for malignant neoplasm of breast; Z13.820 Encounter for screening for osteoporosis

== ENCOUNTER → 2025-01-22 11:37 | Outpatient (BNVA) | payer MEDICARE, SELFPAY | PROVIDERS: PCP Family Medicine; Visit Provider Family Medicine | DX: Z00.00 Encounter for general adult medical examination without abnormal findings (principal); I10 Essential (primary) hypertension; E55.9 Vitamin D deficiency, unspecified; E11.9 Type 2 diabetes mellitus without complications; R01.1 Cardiac murmur, unspecified; Z71.85 Encounter for immunization safety counseling | CPT/HCPCS: 96127; 99397 ==

== ENCOUNTER 2025-01-30 08:06 | Outpatient (REF) | payer MEDICARE, SELFPAY ==
--- OUTSIDE RECORDS SUMMARY | 2019-11-19 11:08 | XMS_ITS | Continuity of Care Document ---
Author Organization [facility] Address [address] [place] [address] Phone Care Team Providers Care Horticultural Technical Officer Name Role Phone My Benito MD Unavailable [...] Diagnoses Date Provider Providers Copied on Encounter [facility], [address] [place] [address], [id number], [place] tel:[phone] Luke No Information Jigna Pepe. [address] [place] [address], [id number], [place]. tel:[phone] [facility], [address] [place] [address], [id number], [place] tel:[phone] [place] cataract eval (chief complaint) Type 2 diabetes mellitus without complicationsAg e-related nuclear cataract, bilateral Celeste OD Mario. [address] [place] [address], [id number], [place]. tel:[phone] Referring Provider: My Russell, [address] [place] [address], [id number] . tel:[phone] [facility], [address] [place] [address], [id number], [place] tel:[phone] [place] cataract evaluation (chief complaint) Age-related nuclear cataract, bilateralType 2 diabetes mellitus without complications Anushkasssandra OD Mario. [address] [place] [address], [id number], [place]. tel:[phone] Referring Provider: My Russell, [address], [place], [address] . tel:[phone] [facility], [address] [place] [address], [id number], [place] tel:[phone] [place] diabetic eye exam (chief complaint) No Information Jigna Pepe. [address], [place], [place], [id number], [place]. tel:[phone] Referring Provider: My Russell, [address], [place], [address] . tel:[phone] [facility], [address] [place] [address], [id number], [place] tel:[phone] [place] diabetic eye exam (chief complaint)Re fraction (chief complaint) No Information Jigna Pepe. [address], [id number], [place]. tel:[phone] Referring Provider: My Russell, [address], [place], [address] . tel:[phone] [facility], [address] [place] [address], [id number], [place] tel:[phone] [place] diabetic eye exam (chief complaint) No Information Jigna Pepe. [address], [id number], [place]. tel:[phone] Referring Provider: My Russell, [address], [place], [address] . tel:[phone] [facility], [address] [place] [address], [id number], [place] tel:[phone] [place] No Information Jigna Pepe. [address], [id number], [place]. tel:[phone] Referring Provider: My Russell, [address], [place], [address] . tel:[phone] [facility], [address] [place] [address], [id number], [place] tel:[phone] [place] No Information Rudolph Arreola. [address] [place] [address], [id number], [place]. tel:[phone] Referring Provider: Maxwell Zambrano, [address] [place] [address], [address] . tel:[phone] [facility], [address] [place] [address], [id number], [place] tel:[phone] [place] No Information Rudolph Arreola. [address] [place] [address], [id number], [place]. tel:[phone] Referring Provider: Maxwell Zambrano, [address] [place] [address], [address] . tel:[phone] [facility], [address] [place] [address], [id number], [place] tel:[phone] [place] No Information Rudolph Arreola. [address] [place] [address], [id number], [place]. tel:[phone] Referring Provider: Maxwell Zambrano, [address] [place] [address], [address] . tel:[phone] [facility], [address] [place] [address], [id number], [place] tel:[phone] [place] No Information Rudolph Arreola. [address] [place] [address], [id number], [place]. tel:[phone] Referring Provider: Maxwell Zambrano, [address] [place] [address], [address] . tel:[phone] [facility], [address] [place] [address], [id number], [place] tel:[phone] [place] No Information Celeste Quintanilla. [address] [place] [address], [id number], [place]. tel:[phone] Referring Provider: Dwight Quintero, [address] [place] [address], [address] . tel:[phone] [facility], [address] [place] [address], [id number], [place] tel:[phone] [place] No Information Rudolph Arreola. [address] [place] [address], [id number], [place]. tel:[phone] Referring Provider: Maxwell Zambrano, [address] [place] [address], [address] . tel:[phone] [facility], [address] [place] [address], [id number], [place] tel:[phone] [place] No Information Rudolph Arreola. [address] [place] [address], [id number], [place]. tel:[phone] Referring Provider: Maxwell Zambrano, [address] [place] [address], [address] . tel:[phone] [facility], [address] [place] [address], [id number], [place] tel:[phone] [place] No Information Rudolph Arreola. [address] [place] [address], [id number], [place]. tel:[phone] Referring Provider: Maxwell Zambrano, [address] [place] [address], [address] . tel:[phone] [facility], [address] [place] [address], [id number], [place] tel:[phone] [place] No Information Rudolph Arreola. [address] [place] [address], [id number], [place]. tel:[phone] Referring Provider: Maxwell Zambrano, [address] [place] [address], [address] . tel:[phone] [facility], [address] [place] [address], [id number], [place] tel:[phone] [place] No Information Rudolph Arreola. [address] [place] [address], [id number], [place]. tel:[phone] Referring Provider: Maxwell Zambrano, [address] [place] [address], [address] . tel:[phone] [facility], [address] [place] [address], [id number], [place] tel:[phone] [place] No Information Rudolph Arreola. [address] [place] [address], [id number], [place]. tel:[phone] Referring Provider: Maxwell Zambrano, [address] [place] [address], [address] . tel:[phone] [facility], [address] [place] [address], [id number], [place] tel:[phone] [place] No Information Celeste Quintanilla. [address] [place] [address], [id number], [place]. tel:[phone] Referring Provider: Dwight Quintero, [address] [place] [address], [address] . tel:[phone] [facility], [address] [place] [address], [id number], [place] tel:[phone] [place] No Information Rudolph Arreola. [address] [place] [address], [id number], [place]. tel:[phone] Referring Provider: Maxwell Zmabrano, [address] [place] [address], [address] . tel:[phone] [facility], [address] [place] [address], [id number], [place] tel:[phone] [place] No Information Rudolph Arreola. [address] [place] [address], [id number], [place]. tel:[phone] Referring Provider: Maxwell Zambrano, [address] [place] [address], [address] . tel:[phone] [facility], [address] [place] [address], [id number], [place] tel:[phone] [place] No Information Rudolph Arreola. [address] [place] [address], [id number], [place]. tel:[phone] Referring Provider: Maxwell Zambrano, [address] [place] [address], [address] . tel:[phone] [facility], [address] [place] [address], [id number], [place] tel:[phone] [place] No Information Celeste RAMESH Dwight. [address] [place] [address], [id number], [place]. tel:[phone] Referring Provider: Dwight Quintero, [address] [place] [address], [address] . tel:[phone] [facility], [address] [place] [address], [id number], [place] tel:[phone] [place] No Information Celeste Quintanilla. [address] [place] [address], [id number], [place]. tel:[phone] Referring Provider: Dwight Quintero, [address] [place] [address], [address] . tel:[phone] [facility], [address] [place] [address], [id number], [place] tel:[phone] [place] No Information Celeste Mahajann. [address] [place] [address], [id number], [place]. tel:[phone] Referring Provider: Dwight Alonso OD N, [address] [place], [address] . tel:[phone] Family History Family Member Type Diagnosis Age At Onset Father Problem (finding) Family history unknown Payers Payer name Insurance type Covered alliance party ID Authoriza tion(s) Medicare [place] [employer] [id number] [employer] M/c Supplemental Claims CI [id number] Social History Type Description Quantity Date Captured [...] FBS this am 118; HgbA1C 6.5%.Dr. Cintron, [place] Refraction Pt currently wea rs cl's, Proclear [...] mths ago and has an appt in [facility] for more blood work. Functional Status Date Functional Assessmen t No Information Instructions Date Instruction Additional Infor matbo Impression/Plan Related to Age-r elated nuclear cataract, bilateral Impression/Plan Related to Type 2 diabetes mellitus without complications Return in 1 year gideon Alonso and OD for Complete Exam. Related to Age-related nuclear cataract, bilateral Impression/Plan Related to Age-r elated nuclear cataract, [...]
[2025-01-30 11:16] LABS: MANUAL DIFF FLAG NO
[2025-01-30 11:24] LABS: Appearance Urine Clear; Glucose Urine UA Negative (Negative); PH 7.5 (5.0-9.0); Specific Gravity - Urine <= 1.005 (1.005-1.025); UMIC TRIGGER UACC YES
[2025-01-30 11:29] LABS: Hematocrit 45.1 % (37.0-47.0); Hemoglobin 14.7 g/dl (12.0-16.0); Imm Gran Abs Auto 0.03 X10*3/uL (0.00-0.03); Imm Gran Pct Auto 0.3 % (0.0-0.4); Lymphocytes Absolute Auto 2.5 X10*3/uL (1.2-4.9); Mean Corpuscular HGB Conc 32.6 g/dl (31.0-35.0); Mean Corpuscular Hemoglobin 28.2 pg (27.0-33.0); Mean Corpuscular Volume 86.6 fL (80.0-98.0); NRBC Abs Auto 0.000 X10*3/uL (0.0-0.012); NRBC Pct Auto 0.0 /100WBC (0.0-0.2); Platelet Count 296 X10*3/uL (160-400); Red Blood Count 5.21 X10*6/uL (4.20-5.50); White Blood Count 9.0 X10*3/uL (4.8-10.8)
[2025-01-30 11:38] LABS: UACC Culture Trigger YES
[2025-01-30 11:54] LABS: Alanine Aminotransferase 19 U/L (0-31); Albumin Level 4.8 g/dL (3.5-5.0); Alkaline Phosphatase 115 U/L (39-117); Anion Gap 13 (12-20); Aspartate Amino Transferase 30 U/L (5-31); Blood Urea Nitrogen 12 mg/dL (9-16); Calcium 10.2 mg/dL (8.4-10.2); Carbon Dioxide 29 mmol/L (22-29); Chloride 102 mmol/L (96-108); Cholesterol 208 mg/dL (<200); Estimated Glomerular Filt Rate > 60; HDL Cholesterol 47 mg/dL (>40); Potassium 3.9 mmol/L (3.3-5.1); Sodium 140 mmol/L (135-145); Total Protein 7.9 g/dL (6.5-8.0); Triglycerides 330 mg/dL (<150)
== END 2025-01-30 08:07 | disposition home or self-care (01) ==
LOC: HO.WFDLDS 08:06
PROVIDERS: Visit Provider Family Medicine
DX: Z00.00 Encounter for general adult medical examination without abnormal findings (principal); I10 Essential (primary) hypertension; E55.9 Vitamin D deficiency, unspecified; R35.0 Frequency of micturition
CPT/HCPCS: 36415; 80053; 80061; 81001; 82043; 82306; 82570; 84443; 85025; 87086; 87088; 87186

== ENCOUNTER 2025-03-13 13:10 | Outpatient (AMB) | payer MEDICARE, SELFPAY ==
--- OUTSIDE RECORDS SUMMARY | 2019-11-19 11:08 | XMS_ITS | Continuity of Care Document ---
Author Organization [facility] Address [address] [place] [address] Phone Care Team Providers Care Charge Account Identification Clerk Name Role Phone My Benito MD Unavailable [...] Diagnoses Date Provider Providers Copied on Encounter [facility], [place], [address] [place] [address], [id number], [place] tel:[phone] [place] No Information Jigna Pepe. [address] [place] [address], [id number], [place]. tel:[phone] [facility], [place], [address] [place] [address], [id number], [place] tel:[phone] [place] cataract eval (chief complaint) Type 2 diabetes mellitus without complicationsAg e-related nuclear cataract, bilateral Celeste OD Mario. [address] [place] [address], [id number], [place]. tel:[phone] Referring Provider: My Russell, [address] [place] [address], [address] . tel:[phone] [facility], [address] [place] [address], [id number], [place] tel:[phone] [place] cataract evaluation (chief complaint) Age-related nuclear cataract, bilateralType 2 diabetes mellitus without complications Anushkasssandra OD Mario. [address] [place] [address], [id number], [place]. tel:[phone] Referring Provider: My Russell, [address], [place], [address] . tel:[phone] [facility] [place], [address] [place] [address], [id number], [place] tel:[phone] [place] diabetic eye exam (chief complaint) No Information Jigna Pepe. [address], [place], [place], [id number], [place]. tel:[phone] Referring Provider: My Russell, [address], [place], [address] . tel:[phone] [facility] [place], [address] [place] [address], [id number], [place] tel:[phone] [place] diabetic eye exam (chief complaint)Re fraction (chief complaint) No Information Jigna Pepe. [address], [id number], [place]. tel:[phone] Referring Provider: My Russell, [address], [place], [address] . tel:[phone] [facility] [place], [address] [place] [address], [id number], [place] tel:[phone] [place] diabetic eye exam (chief complaint) No Information Jigna Pepe. [address], [id number], [place]. tel:[phone] Referring Provider: My Russell, [address], [place], [address] . tel:[phone] [facility] [place], [address] [place] [address], [id number], [place] tel:[phone] [place] No Information Jigna Pepe. [address], [id number], [place]. tel:[phone] Referring Provider: My Russell, [address], [place], [address] . tel:[phone] [facility], [address] [place] [address], [id number], [place] tel:[phone] [place] No Information Rudolph Arreola. [address] [place] [address], [id number], [place]. tel:[phone] Referring Provider: Maxwell Zambrano, [address] [place] [address], [address] . tel:[phone] [facility], [address] [place] [address], [id number], [place] tel:[phone] [place] No Information Rudolph Arreola. [address] [place] [address], [id number], [place]. tel:[phone] Referring Provider: Maxwell Zambrano, [address] [place] [address], [address] . tel:[phone] [facility], [address] [place] [address], [id number], [place] tel:[phone] [place] No Information Rudolph Arreola. [address] [place] [address], [id number], [place]. tel:[phone] Referring Provider: Maxwell Zambrano, [address] [place] [address], [address] . tel:[phone] [facility], [address] [place] [address], [id number], [place] tel:[phone] [place] No Information Rudolph Arreola. [address] [place] [address], [id number], [place]. tel:[phone] Referring Provider: Maxwell Zambrano, [address] [place] [address], [address] . tel:[phone] [facility], [address] [place] [address], [id number], [place] tel:[phone] [place] No Information Celeste Quintanilla. [address] [place] [address], [id number], [place]. tel:[phone] Referring Provider: Dwight Quintero, [address] [place] [address], [address] . tel:[phone] [facility], [address] [place] [address], [id number], [place] tel:[phone] [place] No Information Rudolph Arreola. [address] [place] [address], [id number], [place]. tel:[phone] Referring Provider: Maxwell Zambrano, [address] [place] [address], [address] . tel:[phone] [facility], [address] [place] [address], [id number], [place] tel:[phone] [place] No Information Rudolph Arreola. [address] [place] [address], [id number], [place]. tel:[phone] Referring Provider: Maxwell Zambrano, [address] [place] [address], [address] . tel:[phone] [facility], [address] [place] [address], [id number], [place] tel:[phone] Luke No Information Rudolph Arreola. [address] [place] [address], [id number], [place]. tel:[phone] Referring Provider: Maxwell Zambrano, [address] [place] [address], [address] . tel:[phone] [facility], [address] [place] [address], [id number], [place] tel:[phone] [place] No Information Rudolph Arreola. [address] [place] [address], [id number], [place]. tel:[phone] Referring Provider: Maxwell Zambrano, [address] [place] [address], [address] . tel:[phone] [facility], [address] [place] [address], [id number], [place] tel:[phone] [place] No Information Rudolph Arreola. [address] [place] [address], [id number], [place]. tel:[phone] Referring Provider: Maxwell Zambrano, [address] [place] [address], [address] . tel:[phone] [facility], [address] [place] [address], [id number], [place] tel:[phone] [place] No Information Rudolph Arreola. [address] [place] [address], [id number], [place]. tel:[phone] Referring Provider: Maxwell Zambrano, [address] [place] [address], [address] . tel:[phone] [facility], [address] [place] [address], [id number], [place] tel:[phone] [place] No Information eCleste Quintanilla. [address] [place] [address], [id number], [place]. tel:[phone] Referring Provider: Dwight Quintero, [address] [place] [address], [address] . tel:[phone] [facility], [address] [place] [address], [id number], [place] tel:[phone] [place] No Information Rudolph Arreola. [address] [place] [address], [id number], [place]. tel:[phone] Referring Provider: Maxwell Zambrano, [address] [place] [address], [address] . tel:[phone] [facility], [address] [place] [address], [id number], [place] tel:[phone] [place] No Information Rudolph Arreola. [address] [place] [address], [id number], [place]. tel:[phone] Referring Provider: Maxwell Zambrano, [address] [place] [address], [address] . tel:[phone] [facility], [address] [place] [address], [id number], [place] tel:[phone] [place] No Information Rudolph Arreola. [address] [place] [address], [id number], [place]. tel:[phone] Referring Provider: Maxwell Zambrano, [address] [place] [address], [address] . tel:[phone] [facility], [address] [place] [address], [id number], [place] tel:[phone] [place] No Information Celeste RAMESH Dwight. [address] [place] [address], [id number], [place]. tel:[phone] Referring Provider: Dwight Quintero, [address] [place] [address], [address] . tel:[phone] [facility], [address] [place] [address], [id number], [place] tel:[phone] [place] No Information Celeste Quintanilla. [address] [place] [address], [id number], [place]. tel:[phone] Referring Provider: Dwight Quintero, [address] [place] [address], [address] . tel:[phone] [facility], [address] [place] [address], [id number], [place] tel:[phone] [place] No Information Celeste Mahajann. [address] [place] [address], [id number], [place]. tel:[phone] Referring Provider: Dwight Alonso OD N, [address] [place], [address] . tel:[phone] Family History Family Member Type Diagnosis Age At Onset Father Problem (finding) Family history unknown Payers Payer name Insurance type Covered alliance party ID Authoriza tion(s) Medicare [place] [employer] [id number] Aetna M/c Supplemental Claims CI [id number] Social History Type Description Quantity Date Captured [...] FBS this am 118; HgbA1C 6.5%.Dr. Cintron, [place] Refraction Pt currently wea rs cl's, Proclear [...] mths ago and has an appt in [facility] for more blood work. Functional Status Date [...]
--- NOTE | 2025-03-13 13:35 | A.OFFPC_ITS ---
Vital Signs 03/13/25 13:41 Height 4 ft 11 in Weight 110 lb 6 oz BMI 22.3 BP 176/84 H Blood Pressure Location Lt brachial Position Sitting Respiration 16 Pulse 104 H Pulse Source Pulse Oximeter Temp 97.4 F Temp Source Oral Pulse Oximetry (%) 100 Oxygen Delivery Method Room Air Intake Visit Reasons: f/u HTN, diabetes Intake Note: patient here for follow up on HTN and DM Sharepoint Solutions Developer Required: No Is last menstrual period known: No Post menopausal: No Patient : No Allergies Seasonal Allergies Allergy (Mild, Verified 03/13/25 13:40) allergies nitrofurantoin (From Macrobid) Adverse Reaction (Mild, Verified 03/13/25 13:40) headache, stomach ache. broccoli Allergy (Mild, Uncoded 12/05/24 11:24) congestion cats Allergy (Mild, Uncoded 12/05/24 11:24) Swelling dogs Allergy (Mild, Uncoded 12/05/24 11:24) Swelling chemicals Adverse Reaction (Uncoded 12/05/24 11:24) Unknown Medication List - Last Reconciled 03/13/25 by Barry Young MD atorvastatin 40 mg PO DAILY 90 days blood sugar diagnostic ([employer] Verio test strips) 2 times a day As directed, 90 days cephalexin 500 mg PO Q12H 10 days glipizide ER 5 mg PO DAILY 90 days lancets (Patient Home Monitoring Delica Safety Lancet) 2 times a day As directed, 90 days lisinopril 30 mg PO DAILY 90 days metformin ER 500 mg AM and 750mg PM orally 2 times a day; 90 days mometasone 50 mcg/actuation 2 sprays intranasal DAILY PRN 30 days Tobacco use date assessed: 03/13/25 Fall risk assessment: No Falls in past year Last assessed Fall Risk: 03/13/25 Dental Screening Dental Screen Date: 03/13/25 Did you have a dental visit in the last 12 months?: Yes Did you have a dental problem in the last 6 months where you did not have access to dental care?: No Was dental information given to patient?: Patient has dentist HPI f/u HTN, diabetes HPI Details 79 y/o female presents to f/u HTN diabe nicolas. Last A1c 01/22/25 7.3%. She is on metformin and glipizide. A1c today 7.8%. Blood pressure today 176/84, 104p. She is on lisinopril 30mg. HPI Comments History of Present Illness Details Documentation assistance for Barry Young MD, was provided by Trae Caputo,? Commercial Art Instructor on 03/13/2025 at 2:03 PM EST. I, Dr. Young, have read, observed, and verified documentation. ?? PFSH Surgical History History of appendectomy History of cataract surgery Family History Sister Kidney failure Social History Housing: Apartment Patient Tobacco Use Status: Never used Tobacco e-Cigarette/Vaping Use: Never Used Second Hand Smoke Exposure: No service: No Current occupational status: retired Current occupational exposures/hazards: No Cognitive needs: No Hearing needs: No Vision needs: No Questionnaire Thrive Questionnaire Date Thrive assessed: 08/29/24 I am a: Patient What is your living situation today?: I have a steady place to live Within the past 12 months, did the food you bought not last and you didn't have the money to get more?: I choose not to answer this question Within the past 12 months, did you worry whether your food would run out before you got money to buy more?: Never true Do you have trouble paying for medicines?: No Do you have trouble getting transportation to medical appointments?: No Do you have trouble paying your heating and electricity bill?: No Do you have trouble taking care of your child, family member or friend?: No Do you have trouble with day-to-day activities such as bathing, preparing meals, shopping, managing finances, etc.?: No Are you currently unemployed and looking for a job?: No Are you interested in more education?: No Please select the resources that you would like help with: None Currently or been in a relationship where the following occur: No concerns reported THRIVE Score: 0 JULIETH-7 AMB Questionnaire JULIETH-7 Date JULIETH - 7 assessed: 01/22/25 Source: Developed by Drs. Kris Arellano, Ana Yusuf, Maciej Haddad and colleagues, with an educational annette from [employer]. Review of Systems Const Denies chills, Denies fatigue, Denies fever(s), Denies headache(s) and Denies weakness ENT Denies dizziness and Denies headache(s) Card Denies dyspnea Resp Denies cough, Denies dyspnea, Denies wheezing and Denies other (shortness of breath) Musc Denies numbness and Denies tingling Neuro Denies dizziness, Denies headache(s), Denies numbness, Denies tingling and Denies weakness Psych Denies anxiety and Denies depression Endo Denies fatigue Aller/Immun Denies wheezing Physical exam (Primary Care) Vital Signs: Last Vital Signs Temp 97.4 F 03/13/25 13:41 Pulse 104 H 03/13/25 13:41 Resp 16 03/13/25 13:41 Pulse Ox 100 03/13/25 13:41 Oxygen Delivery Method Room Air 03/13/25 13:41 BMI result Body Mass Index 22.3 Tobacco/Smoking Status: Tobacco use Status Tobacco use date assessed 03/13/25 03/13/25 13:44 Patient Tobacco Use Status Never used Tobacco 03/13/25 13:37 e-Cigarette/Vaping Use Never Used 03/13/25 13:37 Thrive Assessment: Date of Thrive Assessment Date Thrive assessed 08/29/24 03/13/25 13:37 Currently or been in a relationship where the following occur: No concerns reported Const General: well developed; No acute distress Nutritional Appearance: well nourished Orientation/consciousness: patient oriented x3 HENMT Head: Yes normocephalic and Yes atraumatic Eyes General: appearance normal, both eyes and all related structures Pupils: Equal, round and reactive pupils present EOM: EOMs intact bilaterally Resp Effort & Inspection: normal respiratory effort Neuro General: patient oriented x3 and gait normal Cranial nerves: Yes Equal, round and reactive pupils present Psych Affect: normal affect Coding Level of Care Code Est Pt Level 4 (42311) Diagnoses Hypertension I10 Diabetes E11.9 Hyperlipidemia E78.5 Dysuria R30.0 Assessment & Plan Assessment & Plan (1) Hypertension: Code(s): I10 - Essential (primary) hypertension Category: Medical Plan: Blood pressure is high again. Goal is less than 140/90 We discussed that her blood pressures are fine more often than they are controlled. Will change lisinopril to lisinopril-hydrochlorothiazide combo pill. (2) Diabetes: Code(s): E11.9 - Type 2 diabetes mellitus without complications Category: Medical Plan: A1c has climbed again and now up to 7.8%. Goal is less than 7%. Tolerating metformin and glipizide She had declined other oral medications Sent a script for Trulicity. She says she wants to read about it 1st. Referred to endocrinology Recent encounter with nurse navigator for diabetic teaching - continue diabetic diet (3) Hyperlipidemia: Code(s): E78.5 - Hyperlipidemia, unspecified Category: Medical Plan: Triglycerides are too high LDL TC are okay Continue atorvastatin Work on a diet low in saturated fats and cholesterol and controlled blood sugar. (4) Dysuria: Code(s): R30.0 - Dysuria Category: Medical Plan: Sending script for amoxicillin Medications: New lisinopril-hydrochlorothiazide 20-25 mg 1 tab PO DAILY 90 tabs 3RF 90 days amoxicillin 500 mg PO Q12H 20 tabs 0RF 10 days dulaglutide (Trulicity) 0.75 mg (0.5 mL) subcut QWEEK 2 mL 4RF 28 days Discontinued lisinopril Discontinued Reason: Doctor's Order 30 mg PO DAILY 90 days 90 tabs 3RF
[2025-03-13 13:41] VITALS: BP 176/84; PULSE 104; RESP 16; TEMP 36.3; O2SAT 100; BMI 22.3
== END 2025-03-13 14:14 | disposition home or self-care (01) ==
LOC: HO.HMCFM 13:11
PROVIDERS: PCP Family Medicine; Visit Provider Family Medicine
DX: I10 Essential (primary) hypertension (principal); E11.9 Type 2 diabetes mellitus without complications; E78.5 Hyperlipidemia, unspecified; R30.0 Dysuria

== ENCOUNTER → 2025-03-13 13:10 | Outpatient (BNVA) | payer MEDICARE, SELFPAY | PROVIDERS: PCP Family Medicine; Visit Provider Family Medicine | DX: I10 Essential (primary) hypertension (principal); E11.9 Type 2 diabetes mellitus without complications; E78.5 Hyperlipidemia, unspecified; R30.0 Dysuria | CPT/HCPCS: 83036; 99212 ==

== ENCOUNTER 2025-04-08 09:54 | Outpatient (AMB) | payer MEDICARE, SELFPAY ==
--- NOTE | 2025-04-08 09:57 | A.OFFVIS_ITS ---
Vital Signs 04/08/25 09:59 Height 4 ft 11 in Weight 110 lb 3.698 oz BMI 22.3 BP 130/78 Blood Pressure Location Lt brachial Position Sitting Pulse 94 Pulse Source Pulse Oximeter Pulse Oximetry (%) 98 Oxygen Delivery Method Room Air Intake Visit Reasons: Type 2 diabetes mellitus without complications Intake Note: New patient internally referred by PCP for T2DM. Last Diabetic Eye exam: 09/30/24 [facility] Last Podiatry Visit:?Does not have one. Random Glucose: mg/dl 234 Hgb A1C: 7.8% 03/13/2025 Embedded Systems Engineer Required: No Embedded Systems Engineer Services: Embedded Systems Engineer Offered & Declined (Luxembourgish) Accompanied by: Self / Same As Patient Allergies Seasonal Allergies Allergy (Mild, Verified 04/08/25 10:02) allergies nitrofurantoin (From Macrobid) Adverse Reaction (Mild, Verified 04/08/25 10:02) headache, stomach ache. broccoli Allergy (Mild, Uncoded 04/08/25 10:02) congestion cats Allergy (Mild, Uncoded 04/08/25 10:02) Swelling dogs Allergy (Mild, Uncoded 04/08/25 10:02) Swelling chemicals Adverse Reaction (Uncoded 04/08/25 10:02) Unknown Medication List - Last Reconciled 04/08/25 by YEN Davenport amoxicillin 500 mg PO Q12H 10 days atorvastatin 40 mg PO DAILY 90 days blood sugar diagnostic (Rapid [employer] Biosystems[employer] Verio test strips) 2 times a day As directed, 90 days cephalexin 500 mg PO Q12H 10 days lancets (Rapid Micro [employer]ystemstouch Delica Safety Lancet) 2 times a day As directed, 90 days lisinopril-hydrochlorothiazide 20-25 mg 1 tab PO DAILY 90 days metformin ER 500 mg in the morning and 1000 mg in the evening 90 days mometasone 50 mcg/actuation 2 sprays intranasal DAILY PRN 30 days HPI Comments Details: This is a 79-year-old female with a past medical history of type 2 diabetes, peripheral arterial disease, hypertension, osteoporosis, hyperlipidemia pres enting for diabetic management. This is her initial consult. She was diagnosed with diabetes 30 years ago. She has a family history of diabetes in her sister, brothers and mother. Hemoglobin a1c 7.8% 03/13/25. No glucometer info today. She does usually check her sugars once a day, and they are usually fasting readings and under 130. Postprandial glucose this morning is elevated. She had a piece of toast with cheese. Exericse: gym one per week, exercises at home, 5 miles daily Nonsmoker. occasional glass of wine of socially She is really trying to follow a diabetic diet though admits that changes in her schedule and travel sometimes can be prohibitive. Current prescribed medication regimen: Trulicity 0.75 mg weekly, glipizide ER 5 mg daily, metformin ER 1250 every evening. Compliance issues: She did not start Trulicity, and she is not interested in taking a GLP 1 due to her concern for potential side effects and thyroid cancer. She stopped taking glipizide a week or 2 ago because she feels like it does not help lower her blood sugar, and she is concerned about the materials from which it is made. Hypoglycemia symptoms: She had 1 low blood sugar of 68 when she did not eat enough 1 day. She treated this with chocolate. She has glucose tablets at home. Hyperglycemia symptoms: None Microvascular complications: none Macrovascular complications: None Hypertension: treated with lisinopril-hydrochlorothiazide Hyperlipidemia: treated with atorvastatin ROS: Constitutional: No unexplained weight loss, night sweats or fatigue Eyes: No vision changes, blurry vision, double vision Respiratory: No shortness of breath Cardiovascular: No chest pain Gastrointestinal: No anorexia, nausea, vomiting or diarrhea. No abdominal pain Neurologic: No dizziness, numbness or tingling in the extremities.. Physical exam: Constitutional: Alert, in no distress. Neck: Supple, Full range of motion. No lymphadenopathy. No palpable thyroid masses. Respiratory: Clear to auscultation. Cardiovascular: S1 S2 regular. I/ murmur. Right foot: Warm and well perfused. No clubbing, cyanosis or edema. Intact DP pulse. Intact vibratory sensation. Intact sensation to monofilament. No open wounds. Left foot: Warm and well perfused. No clubbing, cyanosis or edema. Intact DP pulse. Intact vibratory sensation. Intact sensation to monofilament. No open wounds. Psychiatric: Normal mood and affect [facility] Medical History (Updated 04/08/25 @ 11:11 by YEN Davenport) Type 2 diabetes mellitus Surgical History History of appendectomy History of cataract surgery Family History Sister Kidney failure Social History Housing: Apartment Patient Tobacco Use Status: Never used Tobacco e-Cigarette/Vaping Use: Never Used Second Hand Smoke Exposure: No service: No Current occupational status: retired Current occupational exposures/hazards: No Cognitive needs: No Hearing needs: No Vision needs: No Physical Exam Vital Signs: Last Vital Signs Pulse 94 04/08/25 09:59 BP 130/78 04/08/25 09:59 Pulse Ox 98 04/08/25 09:59 Oxygen Delivery Method Room Air 04/08/25 09:59 BMI result Body Mass Index 22.3 Results Reviewed Results Reviewed: Laboratory Tests 01/30/25 01/30/25 08:10 08:15 Creatinine 0.67 Estimated GFR > 60 AST 30 ALT 19 Triglycerides 330 H Cholesterol 208 H LDL Cholesterol, Calc 95 HDL Cholesterol 47 TSH 1.63 Urine Creatinine 14.20 Urine Microalbumin < 5.0 Microalb/Creat Ratio TNP Assessment & Plan Assessment & Plan (1) Type 2 diabetes mellitus: Code(s): E11.9 - Type 2 diabetes mellitus without complications Category: Medical Qualifiers: Diabetes mellitus termite control servicer insulin use: without termite control servicer use Diabetes mellitus complication status: without complication Qualified Code(s): E11.9 - Type 2 diabetes mellitus without complications Plan In summary this is a 79-year-old female with suboptimally controlled type 2 diabetes. Discussed pathophysiology of Type II Diabetes Mellitus with the patient in detail.? I explained the termite control servicer risks and complications associated with uncontrolled diabetes including nephropathy, neuropathy, peripheral vascular disease, retinopathy, increased risk of heart disease and stroke.? Discussed lifestyle modification with the patient. Recommended 30 minutes of moderately vigorous exercise 5 days per week to promote weight loss. She has seen a dietitian and declines referral to the development educator and dietitian here. We reviewed treatment of hypoglycemia. Written instructions provided. She has glucose tablets. I advised the patient to alternate checking her blood sugar fasting in the morning 1 day and 1-2 hours after lunch or dinner the next day to get her better idea of her blood sugars over the course of the day. Her insurance does not cover a CGM because she does not take insulin. She will not take a GLP 1 or SGLT2 inhibitor. Patient says she has concerns about the potential side effects and that the medications are worse than having diabetes. She also does not want to take glipizide anymore. She agrees to increase metformin ER to 500 mg in the morning and a 1000 mg at night. If her blood sugars are still not at target at her next visit we can increase to 1000 mg twice a day. We will monitor her kidney function. Follow up in 8 weeks for type 2 diabetes. Orders: Orders Creatinine Today E11.9 - Type 2 diabetes mellitus without complications Medications: Changed From metformin ER 500 mg AM and 750mg PM orally 2 times a day; 90 days 180 tabs 3RF To metformin ER 500 mg in the morning and 1000 mg in the evening 270 tabs 3RF 90 days Discontinued glipizide ER Discontinued Reason: Doctor's Order 5 mg PO DAILY 90 days 90 tabs 0RF Patient Instructions: Stop Glipizide You are not going to start the Trulicity Increase Metformin ER to 500 mg in the morning and take 1000 mg at night. Alternate checking blood sugar fasting the morning and 1-2 hours after a meal like lunch or dinner If you experience low blood sugar (unless 70), treat this by eating a chewable fruit candy like skittles or jelly beans (about 8 pieces), 4 ounces (1/2 cup) of fruit juice (not diet), 1 tablespoon of honey or 4 glucose tablets. If your blood sugar is under 50, take double the amount of one of the above. Recheck your blood sugar in 15 minutes. Coding Level of Care Code New Pt Level 5 (55622) Complex EM visit Add On G2211 Diagnoses Type 2 diabetes mellitus without complication, without long-term current use of insulin E11.9 Diabetes mellitus termite control servicer insulin use: without termite control servicer use Diabetes mellitus complication status: without complication Time Spent (min) 63 Comment Chart review, direct patient care and education, completing documentation
[2025-04-08 09:59] VITALS: BP 130/78; PULSE 94; O2SAT 98; BMI 22.3
[2025-04-08 10:18] LABS: Glucose, Whole Blood 234 mg/dL (60-115)
== END 2025-04-08 11:06 | disposition home or self-care (01) ==
LOC: HO.ENCR 09:55
PROVIDERS: PCP Family Medicine; Visit Provider Physician Assistant Medical
DX: E11.9 Type 2 diabetes mellitus without complications (principal)

== ENCOUNTER → 2025-04-08 09:54 | Outpatient (BNVA) | payer MEDICARE, SELFPAY | PROVIDERS: PCP Family Medicine; Visit Provider Physician Assistant Medical | DX: E11.9 Type 2 diabetes mellitus without complications (principal) | CPT/HCPCS: 82947; 99202 ==

== ENCOUNTER 2025-04-10 09:47 | Outpatient (REF) | payer MEDICARE, SELFPAY | END 2025-04-10 09:48 | disposition home or self-care (01) | LOC: HO.MAMMO 09:47 | PROVIDERS: PCP Family Medicine; Visit Provider Family Medicine | DX: Z12.31 Encounter for screening mammogram for malignant neoplasm of breast (principal) | CPT/HCPCS: 77063; 77067 ==

== ENCOUNTER → 2025-04-10 10:00 | Outpatient (BNV) | payer MEDICARE, SELFPAY | PROVIDERS: PCP Family Medicine; Visit Provider Internal Medicine | DX: Z12.31 Encounter for screening mammogram for malignant neoplasm of breast (principal) | CPT/HCPCS: 77063; 77067 ==

== ENCOUNTER 2025-06-03 10:14 | Outpatient (AMB) | payer MEDICARE, SELFPAY ==
--- OUTSIDE RECORDS SUMMARY | 2019-11-19 10:08 | XMS_ITS | Continuity of Care Document ---
Author Organization [facility] Address [address] [place] [address] Phone Care Team Providers Care Heel Seam Rubber Name Role Phone My Benito MD Unavailable Unavailable Allergies, Adverse Reactions, Alerts Substance Reaction Status Criticality No Known Drug Allergies Active No I nformation Medications Medication Instructions Dosage Effective Dates (start - stop) Status Comments Actonel 30 mg Tab - Active metformin 1,000 mg tablet take 1 tablet by oral route 2 times every day with morning and evening meals 1000 MG - Active Lipitor 10 mg tablet take 1 tablet by or al route every day 10 MG - Active atenolol 50 mg tablet take 1 tablet by oral route every day 50 MG - Active Procedures Procedure Date Comp Exam Established Pt Refraction Comp Exam Established Pt Refraction Comp Exam Established Pt Diab Mac Exam W/O Retinopathy 7 Refraction Comp Exam Established Pt Diab Mac Exam W/O Retinopathy 6 Refraction Comp Exam Est Pt Diab Mac Exam W/O Retinopathy 5 Refraction Vision ESTAB PT Exam Refraction Comp Exam Est Pt Comp Exam Est Pt Replac Contact Lens Comp Exam, Established Comp Exam, Established Comp Exam, Established Comp Exam, Established Replac Contact Lens Replac Contact Lens Replac Contact Lens Replac Contact Lens Replac Contact Lens Replac Contact Lens Ophth Serv: Med Exam; Comp Est 08 Replac Contact Lens Replac Contact Lens Replac Contact Lens Replac Contact Lens Replac Contact Lens Replac Contact Lens Ophth Serv: Med Exam; Comp Est 07 Replac Contact Lens Replac Contact Lens Replac Contact Lens Replac Contact Lens Replac Contact Lens Advance Directives Directive Yes / No Effective Date File Name No Information Encounters Encounter Description Practice Location Reason(s) For Visit Diagnoses Date Provider Providers Copied on Encounter [facility], [address] [place] [address], [id number], [place] tel:[phone] Luke No Information Jigna Pepe. [address] [place] [address], [id number], [place]. tel:[phone] [facility], [address] [place] [address], [id number], [place] tel:[phone] [place] cataract eval (chief complaint) Type 2 diabetes mellitus without complicationsAg e-related nuclear cataract, bilateral Celeste OD Mario. [address] [place] [address], [id number], [place]. tel:[phone] Referring Provider: My Russell, [address] [place] [address], [id number] . tel:[phone] [facility], [address] [place] [address], [id number], [place] tel:[phone] [place] cataract evaluation (chief complaint) Age-related nuclear cataract, bilateralType 2 diabetes mellitus without complications Anushkasssandra OD Mario. [address] [place] [address], [id number], [place]. tel:[phone] Referring Provider: My Russell, [address], [place], [address] . tel:[phone] [facility], [address] [place] [address], [id number], [place] tel:[phone] [place] diabetic eye exam (chief complaint) No Information Jigna Pepe. [address], [place], [place], [id number], [place]. tel:[phone] Referring Provider: My Russell, [address], [place], [address] . tel:[phone] [facility], [address] [place] [address], [id number], [place] tel:[phone] [place] diabetic eye exam (chief complaint)Re fraction (chief complaint) No Information Jigna Pepe. [address], [id number], [place]. tel:[phone] Referring Provider: My Russell, [address], [place], [address] . tel:[phone] [facility], [address] [place] [address], [id number], [place] tel:[phone] [place] diabetic eye exam (chief complaint) No Information Jigna Pepe. [address], [id number], [place]. tel:[phone] Referring Provider: My Russell, [address], [place], [address] . tel:[phone] [facility], [address] [place] [address], [id number], [place] tel:[phone] [place] No Information Jigna Pepe. [address], [id number], [place]. tel:[phone] Referring Provider: My Russell, [address], [place], [address] . tel:[phone] [facility], [address] [place] [address], [id number], [place] tel:[phone] [place] No Information Rudolph Arreola. [address] [place] [address], [id number], [place]. tel:[phone] Referring Provider: Maxwell Zambrano, [address] [place] [address], [id number] . tel:[phone] [facility], [address] [place] [address], [id number], [place] tel:[phone] [place] No Information Rudolph Arreola. [address] [place] [address], [id number], [place]. tel:[phone] Referring Provider: Maxwell Zambrano, [address] [place] [address], [id number] . tel:[phone] [facility], [address] [place] [address], [id number], [place] tel:[phone] [place] No Information Rudolph Arreola. [address] [place] [address], [id number], [place]. tel:[phone] Referring Provider: Maxwell Zambrano, [address] [place] [address], [id number] . tel:[phone] [facility], [address] [place] [address], [id number], [place] tel:[phone] [place] No Information Rudolph Arreola. [address] [place] [address], [id number], [place]. tel:[phone] Referring Provider: Maxwell Zambrano, [address] [place] [address], [id number] . tel:[phone] [facility], [address] [place] [address], [id number], [place] tel:[phone] [place] No Information Celeste Quintanilla. [address] [place] [address], [id number], [place]. tel:[phone] Referring Provider: Dwight Quintero, [address] [place] [address], [address] . tel:[phone] [facility], [address] [place] [address], [id number], [place] tel:[phone] [place] No Information Rudolph Arreola. [address] [place] [address], [id number], [place]. tel:[phone] Referring Provider: Maxwell Zambrano, [address] [place] [address], [id number] . tel:[phone] [facility], [address] [place] [address], [id number], [place] tel:[phone] [place] No Information Rudolph Arreola. [address] [place] [address], [id number], [place]. tel:[phone] Referring Provider: Maxwell Zambrano, [address] [place] [address], [address] . tel:[phone] [facility], [address] [place] [address], [id number], [place] tel:[phone] [place] No Information Rudolph Arreola. [address] [place] [address], [id number], [place]. tel:[phone] Referring Provider: Maxwell Zambrano, [address] [place] [address], [id number] . tel:[phone] [facility], [address] [place] [address], [id number], [place] tel:[phone] [place] No Information Rudolph Arreola. [address] [place] [address], [id number], [place]. tel:[phone] Referring Provider: Maxwell Zambrano, [address] [place] [address], [address] . tel:[phone] [facility], [address] [place] [address], [id number], [place] tel:[phone] [place] No Information Rudolph Arreola. [address] [place] [address], [id number], [place]. tel:[phone] Referring Provider: Maxwell Zambrano, [address] [place] [address], [id number] . tel:[phone] [facility], [address] [place] [address], [id number], [place] tel:[phone] [place] No Information Rudolph Arreola. [address] [place] [address], [id number], [place]. tel:[phone] Referring Provider: Maxwell Zambrano, [address] [place] [address], [id number] . tel:[phone] [facility], [address] [place] [address], [id number], [place] tel:[phone] [place] No Information Celeste Quintanilla. [address] [place] [address], [id number], [place]. tel:[phone] Referring Provider: Dwight Quintero, [address] [place] [address], [address] . tel:[phone] [facility], [address] [place] [address], [id number], [place] tel:[phone] [place] No Information Rudolph Arreola. [address] [place] [address], [id number], [place]. tel:[phone] Referring Provider: Maxwell Zambrano, [address] [place] [address], [id number] . tel:[phone] [facility], [address] [place] [address], [id number], [place] tel:[phone] [place] No Information Rudolph Arreola. [address] [place] [address], [id number], [place]. tel:[phone] Referring Provider: Maxwell Zambrano, [address] [place] [address], [address] . tel:[phone] [facility], [address] [place] [address], [id number], [place] tel:[phone] [place] No Information Rudolph Arreola. [address] [place] [address], [id number], [place]. tel:[phone] Referring Provider: Maxwell Zambrano, [address] [place] [address], [address] . tel:[phone] [facility], [address] [place] [address], [id number], [place] tel:[phone] [place] No Information Celeste RAMESH Dwight. [address] [place] [address], [id number], [place]. tel:[phone] Referring Provider: Dwight Quintero, [address] [place] [address], [address] . tel:[phone] [facility], [address] [place] [address], [id number], [place] tel:[phone] [place] No Information Celeste Quintanilla. [address] [place] [address], [id number], [place]. tel:[phone] Referring Provider: Dwight Quintero, [address] [place] [address], [id number] . tel:[phone] [facility], [address] [place] [address], [id number], [place] tel:[phone] [place] No Information Celeste Mahajann. [address] [place] [address], [id number], [place]. tel:[phone] Referring Provider: Dwight Alonso OD N, [address] [place], [address] . tel:[phone] Family History Family Member Type Diagnosis Age At Onset Father Problem (finding) Family history unknown Payers Payer name Insurance type Covered constitution party ID Authoriza tion(s) Medicare [employer] [id number] [employer] M/c Supplemental Claims CI [id number] Social History Type Description Quantity Date Captured Comments Sex Female Smoking Status No Information Chief Complaint And Reason For Visit No Information Reason For Referral Reason For Referral No Information Plan Of Treatment Date Type Action Status Goal Tobacco cessation counseling completed Patient Education metformin 1,000 mg tabl et completed Patient Education atenolol 50 mg tablet c ompleted History Of Present Illness Encounter Date Complaint History Of Prese nt Illness cataract eval The 74 year old female presents for evaluation of cataract eval. Pt wears glasses and contacts but primarily wears her contacts. Pt also has glasses to wear over her contacts to help her drive at night. Pt denies any changes with scriptsPt will occasionally use OTC allergy and refresh drops.FBS- 138A1c- 7.0 cataract evaluation Here for cat aract evaluation. Pt c/o decreased overall va; has to use Rx glasses over her contacts to see at night. Denies sleeping in contacts & replaces biweekly, but sometimes weekly with allergies. T2 non-insulin dependent; last fbs was 137 this AM. Last A1c was 6.8 x 3 months ago. diabetic eye exam Pt here for di abetic eval OU. Pt states dva stable OU with current dva cls and nva is blurry, did not like previous mono va cls and states she may return for a cl refit with Dr Pierre if desired (cl policy given).t2dm- fbs- 132 X this morningLast A1C- 7.2 x 2 months agoPCP- Dr Cintron diabetic eye exam Here for diabe tic eye examination. Pt is non-insulin dependent diabetic. FBS this am 118; HgbA1C 6.5%.Dr. Cintron, [place] Refraction Pt currently wea rs cl's, Proclear Compatible OD only, dva. Pt states she is happy with current brand, but would like to wear cl's in both eyes. DVA stable OU, but notices a slight decrease at times. She also has rx for glasses that seem stable OU. diabetic eye exam here for diabe saroj alba. pt c/o decrease in dva and wears glasses over cl for driving and sometimes while watching tv. sts nva is stable with correction. denies sleeping in cl and replaces q wk during allergy season and q2wks any other time.type 2 diabetic. last 116 x 7:30 this am. last a1c 7.0 x 6 mths ago and has an appt in [facility] for more blood work. Functional Status Date Functional Assessmen t No Information Instructions Date Instruction Additional Infor ezra Impression/Plan Related to Age-r elated nuclear cataract, bilateral Impression/Plan Related to Type 2 diabetes mellitus without complications Return in 1 year gideon Alonso and OD for Complete Exam. Related to Age-related nuclear cataract, bilateral Impression/Plan Related to Type 2 diabetes mellitus without complications Impression/Plan Related to Age-r elated nuclear cataract, bilateral Return in 1 year gideon Benito MD for Complete/Dilated Exam. Related to Type 2 diabetes mellitus without complications Impression/Plan - Di scussed cataracts OU: not visually significant, observeNew glasses Rx givenCL Rx updated Related to Age-related nuclear cataract, bilateral Impression/Plan - Di abetes mellitus type II: no retinopathy noted. Discussed ocular and systemic benefits of blood sugar control and importance of annual dilated eye exams. Related to Type 2 diabetes mellitus without complications Follow up - Return i n 1 year with My Benito MD for Complete/Dilated Exam. Related to Type 2 diabetes mellitus without complications Return in 1 year gideon Benito MD for Complete Exam. Related to Type 2 diabetes mellitus without complications Impression/Plan - Di scussed cataracts OU: not visually significant, observeNew glasses Rx givenCL Rx updated Related to Age-related nuclear cataract, bilateral Impression/Plan - Di abetes mellitus type II: no retinopathy noted. Discussed ocular and systemic benefits of blood sugar control and importance of annual dilated eye exams. Related to Type 2 diabetes mellitus without complications Follow up - Return i n 1 year with My Benito MD for Complete Exam. Related to Type 2 diabetes mellitus without complications Return in 1 year wit h My Benito MD for Complete Exam. Related to Type 2 diabetes mellitus without complications Follow up - Return i n 1 year with My Benito MD for Complete Exam. Related to Type 2 diabetes mellitus without complications Impression/Plan - No retinopathy, stressed importance of tight glycemic control and annual dilated eye exams.New glasses and CL Rx given. Related to Type 2 diabetes mellitus without complications Assessments Type Assessment Date No Information Patient Care Teams Name Effective Dates (start - stop) Status Members No Information
[2025-06-03 10:16] VITALS: BP 158/70; PULSE 87; O2SAT 100; BMI 21.7
--- NOTE | 2025-06-03 10:16 | MHC.OFFVIS ---
Vital Signs 06/03/25 10:16 06/03/25 10:58 06/03/25 10:59 Height 4 ft 11 in Weight 107 lb 5.842 oz BMI 21.7 BP 158/70 H 139/79 Blood Pressure Location Lt brachial Lt brachial Position Sitting Pulse 87 Pulse Source Pulse Oximeter Pulse Oximetry (%) 100 Oxygen Delivery Method Room Air Intake Visit Reasons: Type II diabetes Intake Note: Patient present today for T2DM. Last Diabetic Eye exam: 09/30/24 [facility] Last Podiatry Visit: Does not see a Clerical And Administrative Workers Random Glucose: 194 mg/dl Hgb A1C: 7.8% 03/13/2025 Advertising Agency Manager Required: No Accompanied by: Self / Same As Patient Allergies Seasonal Allergies Allergy (Mild, Verified 06/03/25 10:23) allergies nitrofurantoin (From Macrobid) Adverse Reaction (Mild, Verified 06/03/25 10:23) headache, stomach ache. broccoli Allergy (Mild, Uncoded 06/03/25 10:23) congestion cats Allergy (Mild, Uncoded 06/03/25 10:23) Swelling dogs Allergy (Mild, Uncoded 06/03/25 10:23) Swelling chemicals Adverse Reaction (Uncoded 06/03/25 10:23) Unknown HPI Comments Details: This is a 79-year-old female with a past medical history of type 2 diabetes, peripheral arterial disease, hypertension, osteoporosis, hyperlipidemia presenting for diabetic management. She was diagnosed with diabetes 30 years ago. She has a family history of diabetes in her sister, brothers and mother. Hemoglobin a1c 7.8% 03/13/25. She brought a log of her glucose readings. Average glucose for the past month is 142 which would give an estimated GMI of 6.5% for the past month. She had a couple of highs over 200 when she ate something sweet like a pastry. No hypoglycemia. Exericse: gym one per week, exercises at home, 5 miles daily Nonsmoker. occasional glass of wine of socially She is really trying to follow a diabetic diet though admits that changes in her schedule and travel sometimes can be prohibitive. Current prescribed medication regimen: Metformin extended release 500 mg in the morning and a 1000 mg in the evening. Past medication: Trulicity was prescribed, but she never took it due to concerns about potential side effects and thyroid cancer. She was not glipizide and stopped it because she did not feel like it was helping, and she was concerned about the materials from which it is made. Hypoglycemia symptoms: No interval episodes Hyperglycemia symptoms: None Microvascular complications: none Macrovascular complications: None Hypertension: treated with lisinopril-hydrochlorothiazide. Her blood pressure is mildly elevated today, but when she took it at home it was 124/77. Hyperlipidemia: treated with atorvastatin ROS: Constitutional: No unexplained weight loss, night sweats or fatigue Eyes: No vision changes, blurry vision, double vision Respiratory: No shortness of breath Cardiovascular: No chest pain Gastrointestinal: No anorexia, nausea, vomiting or diarrhea. No abdominal pain Neurologic: No dizziness, numbness or tingling in the extremities.. Physical exam: Constitutional: Alert, in no distress. Neck: Supple, Full range of motion. No lymphadenopathy. No palpable thyroid masses. Respiratory: Clear to auscultation. Cardiovascular: S1 S2 regular. I/ murmur. [facility] Medical History (Updated 06/03/25 @ 12:56 by YEN Davenport) Type 2 diabetes mellitus Surgical History History of appendectomy History of cataract surgery Family History Sister Kidney failure Social History Housing: Apartment Patient Tobacco Use Status: Never used Tobacco e-Cigarette/Vaping Use: Never Used Second Hand Smoke Exposure: No service: No Current occupational status: retired Current occupational exposures/hazards: No Cognitive needs: No Hearing needs: No Vision needs: No Physical Exam Vital Signs: Last Vital Signs Pulse 87 06/03/25 10:16 BP 158/70 H 06/03/25 10:16 Pulse Ox 100 06/03/25 10:16 Oxygen Delivery Method Room Air 06/03/25 10:16 BMI result Body Mass Index 21.7 Results Reviewed Results Reviewed: Laboratory Last Values Glucose (Clinic) 194 mg/dL (60-115) H 06/03/25 10:25 Laboratory Tests 01/30/25 01/30/25 08:10 08:15 Creatinine 0.67 Estimated GFR > 60 AST 30 ALT 19 Triglycerides 330 H Cholesterol 208 H LDL Cholesterol, Calc 95 HDL Cholesterol 47 TSH 1.63 Urine Creatinine 14.20 Urine Microalbumin < 5.0 Microalb/Creat Ratio TNP Assessment & Plan Assessment & Plan (1) Type 2 diabetes mellitus: Code(s): E11.9 - Type 2 diabetes mellitus without complications Category: Medical Qualifiers: Diabetes mellitus senior care insulin use: without intermediate designer use Diabetes mellitus complication status: without complication Qualified Code(s): E11.9 - Type 2 diabetes mellitus without complications (2) Hyperlipidemia: Code(s): E78.5 - Hyperlipidemia, unspecified Category: Medical Qualifiers: Hyperlipidemia type: pure hypercholesterolemia Qualified Code(s): E78.00 - Pure hypercholesterolemia, unspecified (3) Hypertension: Code(s): I10 - Essential (primary) hypertension Category: Medical Qualifiers: Hypertension type: primary hypertension Qualified Code(s): I10 - Essential (primary) hypertension Plan In summary this is a 79-year-old female. She is checking her glucose more frequently and her numbers have been good over the past month. Discussed pathophysiology of Type II Diabetes Mellitus with the patient in detail.? I explained the intermediate designer risks and complications associated with uncontrolled diabetes including nephropathy, neuropathy, peripheral vascular disease, retinopathy, increased risk of heart disease and stroke.? Discussed lifestyle modification with the patient. Recommended 30 minutes of moderately vigorous exercise 5 days per week to promote weight loss. She has seen a dietitian and declines referral to the machine bobbin winder and dietitian here. We reviewed treatment of hypoglycemia. Continue metformin extended release 500 mg in the morning and a 1000 mg in the evening. Continue current medications for hypertension and hyperlipidemia. She will have lab work completed in 2 months. She will follow up in 3 months. Orders: Orders Aspartate Amino Transferase 2 Months E11.9 - Type 2 diabetes mellitus without complications Microalbumin, Random (w Creat) 2 Months E11.9 - Type 2 diabetes mellitus without complications Lipid Panel 2 Months E11.9 - Type 2 diabetes mellitus without complications, E78.5 - Hyperlipidemia, unspecified Vitamin B12 2 Months E11.9 - Type 2 diabetes mellitus without complications, Z91.89 - Other specified personal risk factors, not elsewhere classified Hemoglobin A1c 2 Months E11.9 - Type 2 diabetes mellitus without complications, R73.9 - Hyperglycemia, unspecified Creatinine 2 Months E11.9 - Type 2 diabetes mellitus without complications Alanine Aminotransferase 2 Months E11.9 - Type 2 diabetes mellitus without complications Coding Level of Care Code Est Pt Level 4 (57672) Complex visit Add On G2211 Diagnoses Type 2 diabetes mellitus without complication, without long-term current use of insulin E11.9 Diabetes mellitus intermediate designer insulin use: without intermediate designer use Diabetes mellitus complication status: without complication Pure hypercholesterolemia E78.00 Hyperlipidemia type: pure hypercholesterolemia Primary hypertension I10 Hypertension type: primary hypertension
[2025-06-03 10:29] LABS: Glucose, Whole Blood 194 mg/dL (60-115)
[2025-06-03 10:59] VITALS: BP 139/79
== END 2025-06-03 11:09 | disposition home or self-care (01) ==
LOC: HO.ENCR 10:15
PROVIDERS: PCP Family Medicine; Visit Provider Physician Assistant Medical
DX: E11.9 Type 2 diabetes mellitus without complications (principal); E78.00 Pure hypercholesterolemia, unspecified; I10 Essential (primary) hypertension

== ENCOUNTER → 2025-06-03 10:14 | Outpatient (BNVA) | payer MEDICARE, SELFPAY | PROVIDERS: PCP Family Medicine; Visit Provider Physician Assistant Medical | DX: E11.9 Type 2 diabetes mellitus without complications (principal); I10 Essential (primary) hypertension; E78.00 Pure hypercholesterolemia, unspecified | CPT/HCPCS: 82947; 99212 ==

== ENCOUNTER 2025-06-17 10:37 | Outpatient (AMB) | payer MEDICARE, SELFPAY ==
--- NOTE | 2025-06-17 10:48 | MHC.PC.OV ---
Vital Signs 06/17/25 10:57 Height 4 ft 11 in Weight 105 lb 4 oz BMI 21.3 BP 146/80 H Blood Pressure Location Rt brachial Position Sitting Respiration 15 Pulse 96 Pulse Source Pulse Oximeter Temp 97.5 F Temp Source Temporal Artery Scan Pulse Oximetry (%) 99 Oxygen Delivery Method Room Air Intake Visit Reasons: f/u HTN, DM Intake Note: Regine presents in the office today for hypertension and diabetes. Paraeducator Required: No Is last menstrual period known: No Post menopausal: Yes Patient : No Allergies Seasonal Allergies Allergy (Mild, Verified 06/17/25 10:54) allergies nitrofurantoin (From Macrobid) Adverse Reaction (Mild, Verified 06/17/25 10:54) headache, stomach ache. broccoli Allergy (Mild, Uncoded 06/17/25 10:54) congestion cats Allergy (Mild, Uncoded 06/17/25 10:54) Swelling dogs Allergy (Mild, Uncoded 06/17/25 10:54) Swelling chemicals Adverse Reaction (Uncoded 06/17/25 10:54) Unknown Medication List - Last Reconciled 06/17/25 by Barry Young MD amoxicillin 500 mg PO Q12H 10 days atorvastatin 40 mg PO DAILY 90 days blood sugar diagnostic ([employer] test strips) 2 times a day As directed, 90 days lancets ([employer] Lancet) 2 times a day As directed, 90 days lisinopril-hydrochlorothiazide 20-25 mg 1 tab PO DAILY 90 days metformin ER 500 mg in the morning and 1000 mg in the evening 90 days mometasone 50 mcg/actuation 2 sprays intranasal DAILY PRN 30 days Tobacco use date assessed: 06/17/25 Fall risk assessment: No Falls in past year Last assessed Fall Risk: 06/17/25 Dental Screening Dental Screen Date: 06/17/25 Did you have a dental visit in the last 12 months?: Yes Did you have a dental problem in the last 6 months where you did not have access to dental care?: No Was dental information given to patient?: Patient has dentist HPI f/u HTN, DM HPI Details 80 y/o female presents to f/u HTN, diabetes. Blood pressure today 146/80, 96p. She is on lisinopril-HCTZ 20-25mg daily. Blood pressure at home has been controlled. A1c today 06/17/25 7.4%. She is on metformin. [facility] Medical History (Updated 06/03/25 @ 12:56 by YEN Davenport) Type 2 diabetes mellitus Surgical History History of appendectomy History of cataract surgery Family History Sister Kidney failure Social History (Updated 06/17/25 @ 10:57 by Shirley Bethea CMA) Housing: Apartment Alcohol intake: never Patient Tobacco Use Status: Never used Tobacco e-Cigarette/Vaping Use: Never Used Second Hand Smoke Exposure: No service: No Current occupational status: retired Current occupational exposures/hazards: No Cognitive needs: No Hearing needs: No Vision needs: No Questionnaire Thrive Questionnaire Date Thrive assessed: 08/29/24 I am a: Patient What is your living situation today?: I have a steady place to live Within the past 12 months, did the food you bought not last and you didn't have the money to get more?: I choose not to answer this question Within the past 12 months, did you worry whether your food would run out before you got money to buy more?: Never true Do you have trouble paying for medicines?: No Do you have trouble getting transportation to medical appointments?: No Do you have trouble paying your heating and electricity bill?: No Do you have trouble taking care of your child, family member or friend?: No Do you have trouble with day-to-day activities such as bathing, preparing meals, shopping, managing finances, etc.?: No Are you currently unemployed and looking for a job?: No Are you interested in more education?: No Please select the resources that you would like help with: None Currently or been in a relationship where the following occur: No concerns reported THRIVE Score: 0 AUDIT C Alcohol Use Questionnaire (AUDIT-C) 1. How often do you have a drink containing alcohol?: Never 3. How often do you have six or more drinks on one occasion?: Never Total Score: 0 JULIETH-7 AMB Questionnaire JULIETH-7 Date JULIETH - 7 assessed: 01/22/25 Source: Developed by Drs. Kris Arellano, Ana Yusuf, Maciej Haddad and colleagues, with an educational annette from [employer]. Review of Systems Const Denies chills, Denies fatigue, Denies fever(s), Denies headache(s) and Denies weakness ENT Denies dizziness and Denies headache(s) Card Denies dyspnea Resp Denies cough, Denies dyspnea, Denies wheezing and Denies other (shortness of breath) Musc Denies numbness and Denies tingling Neuro Denies dizziness, Denies headache(s), Denies numbness, Denies tingling and Denies weakness Psych Denies anxiety and Denies depression Endo Denies fatigue Aller/Immun Denies wheezing Physical exam (Primary Care) Vital Signs: Last Vital Signs Temp 97.5 F 06/17/25 10:57 Pulse 96 06/17/25 10:57 Resp 15 06/17/25 10:57 BP 146/80 H 06/17/25 10:57 Pulse Ox 99 06/17/25 10:57 Oxygen Delivery Method Room Air 06/17/25 10:57 BMI result Body Mass Index 21.3 Tobacco/Smoking Status: Tobacco use Status Tobacco use date assessed 06/17/25 06/17/25 11:01 Patient Tobacco Use Status Never used Tobacco 06/17/25 10:57 e-Cigarette/Vaping Use Never Used 06/17/25 10:57 Thrive Assessment: Date of Thrive Assessment Date Thrive assessed 08/29/24 06/17/25 10:50 Currently or been in a relationship where the following occur: No concerns reported Const General: well developed; No acute distress Nutritional Appearance: well nourished Orientation/consciousness: patient oriented x3 [facility] Head: Yes normocephalic and Yes atraumatic Eyes General: appearance normal, both eyes and all related structures Pupils: Equal, round and reactive pupils present EOM: EOMs intact bilaterally Resp Effort & Inspection: normal respiratory effort Auscultation: clear to auscultation bilaterally Cardio Rate: regular rate Rhythm: regular rhythm Heart sounds: S1 normal heart sound present, S2 normal heart sound present, no gallops, no murmurs and no rubs Neuro General: patient oriented x3 and gait normal Cranial nerves: Yes Equal, round and reactive pupils present Psych Affect: normal affect Results AMB Hemoglobin A1c AMB Hemoglobin A1c 7.4 % Last Edit by Shirley Bethea CMA on 06/17/25 11:04 Results Reviewed Results Reviewed: Laboratory Last Values Hgb A1c (Clinic) 7.4 % (4.0-6.0) H 06/17/25 11:03 Coding Level of Care Code Est Pt Level 4 (67048) Diagnoses Diabetes E11.9 White coat syndrome with diagnosis of hypertension I10 Assessment & Plan Assessment & Plan (1) Diabetes: Code(s): E11.9 - Type 2 diabetes mellitus without complications Category: Medical Plan: Taking Metformin as prescribed. AM BS 130-160s A1c is mildly elevated as well Will have her increase metformin. Recommended 1000 mg b.i.d. but patient would like to take 500 mg in the morning, 500 mg around noontime and 1000 mg in the evening She already has her next appointment with her global transportation manager scheduled for September. Up-to-date (2) White coat syndrome with diagnosis of hypertension: Code(s): I10 - Essential (primary) hypertension Category: Medical Plan: Blood pressures fluctuate. White Coat syndrome. BPs at home: 108/65, 105/63. Taking Lisinopril-HCTZ as prescribed. Continue lisinopril-hydrochlorothiazide as prescribed and continue watching salt and sodium in diet Continue monitoring blood pressure at home Orders: Orders AMB Hemoglobin A1c Today E11.9 - Type 2 diabetes mellitus without complications Medications: Changed From metformin ER 500 mg in the morning and 1000 mg in the evening 90 days 270 tabs 3RF To metformin ER 500 mg in the morning, 500mg Noon and 1000 mg in the evening 360 tabs 3RF 90 days
[2025-06-17 10:57] VITALS: BP 146/80; PULSE 96; RESP 15; TEMP 36.4; O2SAT 99; BMI 21.3
== END 2025-06-17 11:41 | disposition home or self-care (01) ==
LOC: HO.HMCFM 10:38
PROVIDERS: PCP Family Medicine; Visit Provider Family Medicine
DX: E11.9 Type 2 diabetes mellitus without complications (principal); I10 Essential (primary) hypertension

== ENCOUNTER → 2025-06-17 10:37 | Outpatient (BNVA) | payer MEDICARE, SELFPAY | PROVIDERS: PCP Family Medicine; Visit Provider Family Medicine | DX: E11.9 Type 2 diabetes mellitus without complications (principal); I10 Essential (primary) hypertension; Z79.84 Long term (current) use of oral hypoglycemic drugs | CPT/HCPCS: 83036; 99212 ==